=== PATIENT | female | born 1945 | race Caucasian/White ===

== ENCOUNTER 2017-10-17 12:01 | Inpatient (IN) | payer MEDICARE, OTHER ==
[~2017-10-17] VITALS: Ht 160 cm; Wt 55.3 kg
[~2017-10-17 12:01] MED LIST: ACYC800T PO; ALEN70TA47 PO; ASP81TEC PO; DESL1TBM PO; E400C PO; LOSA50TA6 PO; LSNP20T PO; LYSI500T13 PO; PIRO20CA2 PO; SALS750T17 PO
--- OUTSIDE RECORDS SUMMARY | 2017-10-17 12:43 | XMS REPORT ---
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
--- OUTSIDE RECORDS SUMMARY | 2017-10-17 12:43 | XMS REPORT ---
Author Author DEXTER SCANLON [facility] eClinicalWorks Address Unknown Phone Unavailable Care Team Providers Care Ecommerce Marketing Specialist Name Role Phone DEXTER SCANLON CP Unavailable Allergies No Known Allergies Problems Problem Type Condition Code Onset Dates Condition Status Problem Other seasonal allergic rhinitis J30.2 Active Problem Chronic kidney disease, stage 3 (moderate) N18.3 Active Problem Essential hypertension I10 Active Problem Lymphedema of breast I89.0 Active Problem History of carcinoma in situ of breast Z86.000 Active Problem Diverticulosis of large intestine without hemorrhage K57.30 Active Medications No Known Medications Results No Known Results Summary Purpose eClinicalWorks Submission
--- OUTSIDE RECORDS SUMMARY | 2017-10-17 12:43 | XMS REPORT ---
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
--- OUTSIDE RECORDS SUMMARY | 2017-10-17 12:43 | XMS REPORT ---
Author Author DEXTER SCANLON [facility] Address [address] [place] [address] Care Team Providers Care Mold Injector Name Role Phone DEXTER SCANLON Unavailable PROBLEMS Type Condition ICD9-CM Code QZX30-XD Code Onset Dates Condition Status SNOMED Code Problem Lymphedema of breast I89.0 Active 952193521 Problem Arthritis, multiple joint involvement M12.9 Active 084502318 Problem Other seasonal allergic rhinitis J30.2 Active 909105178 Problem Diverticulosis of large intestine without hemorrhage K57.30 Active 018770378 Problem History of carcinoma in situ of breast Z86.000 Active 63910164614350736 Problem Chronic kidney disease, stage 3 (moderate) N18.3 Active 112483063 Problem Essential hypertension I10 Active 89763446 ALLERGIES Substance Reaction Event Type Date Status Lisinopril 20 Mg Tablet cough Non Drug Allergy Aug, Active Norvasc 10 Mg Tablet edema Non Drug Allergy Aug, Active SOCIAL HISTORY Never Assessed PLAN OF CARE Activity Details Follow Up 4 Months Reason:Nephrology lab VITAL SIGNS Height 64 in 2016-08-15 Weight 123.3 lbs 2016-08-15 Temperature 97.6 degrees Fahrenheit 2016-08-15 Heart Rate 80 bpm 2016-08-15 Respiratory Rate 18 2016-08-15 BMI 21.16 kg/m2 2016-08-15 Blood pressure systolic 131 mmHg 2016-08-15 Blood pressure diastolic 84 mmHg 2016-08-15 MEDICATIONS Medication Instructions Dosage Frequency Start Date End Date Duration Status Aspir-81 81 MG Orally Once a day 1 tablet 24h Active Claritin Active Vitamin E 400 UNIT Orally Once a day 1 capsule 24h Active Metoprolol Tartrate 50 MG 1 TABLET TWICE A DAY ORALLY Active Lasix 20 mg Orally 3 times per week 1 tablet Dec, Active Lysine 500 MG Active Glucosamine Chondroitin Plus 1 capsule Active Vitamin D 2000 UNIT Orally Once a day 1 tablet 24h Active Triamcinolone Acetonide 0.5 % Externally Twice a day 1 application to affected area 12h Active Lecithin 400 MG Active B-50 Complex - Active Centrum Silver - Active Nexium 20 MG 1 Capsule by Oral route 1 time per day November, Active Gelatin 650 MG Active Acyclovir 400MG TAKE 1 TABLET THREE TIMES A DAY Active Tamoxifen Citrate 20 MG Orally Once a day 1 tablet 24h Active Salsalate 750 MG Orally Twice a day 2 tablets 12h Active Fluticasone Propionate 50MCG USE 1 SPRAY IN EACH NOSTRIL TWICE A DAY Active Voltaren NA 1 APPLICATION BY TRANSDERMAL ROUTE 4 TIMES PER DAY DISP 100 G TUBE. Active Biotin Active RESULTS No Results PROCEDURES Procedure Date Ordered Result Body Site CRYOTHERAPY OF SKIN 2016-08-15 N/A FLUZONE HIGH DOSE 65 AND UP 2015Aug 15, 2016 CRYOTHERAPY OF SKIN Aug 15, 2016 SINGLE IMMUNIZATION ADMIN Aug 15, 2016 IMMUNIZATIONS Vaccine Route Administration Date Status FLUZONE HIGH DOSE 65 AND UP 2015 IM Intramuscular Aug 15, 2016 Administered MEDICAL (GENERAL) HISTORY Type Description Date Medical History Chronic Kidney Disease Medical History hypertension Medical History hx Carcinoma in situ of breast Medical History macular degeneration Medical History Arthritis Medical History osteoporosis Medical History hx Pityriasis rosea Medical History Diverticulosis Medical History Chronic/recurrent sinusitis Medical History Sacroiliitis Surgical History lumpectomy ([facility]) 09/19/2011 Surgical History hysterectomy YULY 1982 Surgical History section X2 Surgical History orthopedic surgery-scapula 1968 Surgical History Cataract surgery 11/2009 Surgical History tonsillectomy and adenoidectomy Hospitalization History Hospitalization for surgery only
--- OUTSIDE RECORDS SUMMARY | 2017-10-17 12:43 | XMS REPORT ---
Author Author DEXTER SCANLON [facility] [place] eClinicalWorks Address Unknown Phone Unavailable Care Team Providers Care Certified Physician'S Assistant Name Role Phone DEXTER SCANLON Unavailable Allergies No Known Allergies Problems Problem [...] Instructions Start Date End Date Status Dosage Lasix [facility] [address]-21 20 MG Orally 3 times per week December 10, 2014 1 tablet Results No Known Results Summary Purpose eClinicalWorks Submission
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
[2017-10-17] MEDS ORDERED: CATHETER FLUSH 10 ML SYR IV PRN (13:30)
[2017-10-17] MEDS: HYDROmorphone 2 MG/ML VIAL (DILAUDID) IVP PRN ×2 (13:41→19:48)
[2017-10-17] MEDS: NS IV 1000 ML 1,000 ML IV SCH ×2 (13:41→23:15)
--- NOTE | 2017-10-17 13:42 | History & Physical-Hospitalist ---
History of Present Illness HPI/Chief Complaint Patient is a 72-year-old white female sent from Dr. Burns's office as a direct admission. She had gone there as a result of swelling and pain in the right index finger. There was some abnormality yesterday but much more so today and there was Considerable pain as well. There was erythema which extended up the volar surface of the forearm and medial surface of the upper arm with erythema also spilling over to the upper outer quadrant of the right breast. She was not clear that there had been any injury or puncture of the finger. Curiously her was just discharged from this floor yesterday after a cellulitis of the left hand beginning with a power drill accident. She also reports pain at the buttocks which is been present for several days. She says that she has previously had an abscess in this area. She also has a considerable arthritic involvement of the IP joints of both hands. Source: patient Exam Limitations: no limitations Date Seen 10/17/17 Time Seen by Provider: 13:33 Attending Physician Jhonny Rees MD PCP Faizan Burns MD Referring Physician Date of Admission Oct 17, 2017 at 12:40 Home Medications & Allergies Home Medications Reviewed patient Home Medication Reconciliation performed by pharmacy medication reconciliations outside plant technician and/or nursing. Patients Allergies have been reviewed. Allergies Allergies Coded Allergies Codeine (Unverified Adverse Reaction, Mild, 04/03/11) Past Ecsgnvb-Ywtlsm-Scjqzv Hx Past Med/Social Hx: Reviewed Nursing Past Med/Soc Hx Review of Systems Constitutional: see HPI EENTM: no symptoms reported Respiratory: no symptoms reported Cardiovascular: no symptoms reported Gastrointestinal: no symptoms reported Genitourinary: no symptoms reported Musculoskeletal: joint pain Skin: see HPI Psychiatric/Neurological: No Symptoms Reported Physical Exam Physical Exam Vital Signs Capillary Refill : General Appearance: Moderate Distress Eyes: Bilateral Eye Normal Inspection HEENT: Normal ENT Inspection Neck: Normal Inspection Respiratory: Chest Non Tender, Lungs Clear, Normal Breath Sounds, No Accessory Muscle Use, No Respiratory Distress Gastrointestinal: Normal Bowel Sounds, No Organomegaly, No Pulsatile Mass, Non Tender, Soft Back: Normal Inspection Neurologic/Psychiatric: Alert, Oriented x3, No Motor/Sensory Deficits, Normal Mood/Affect Comments There was considerable rather globoid deformity of the IP joints of both hands. The right second finger is grossly abnormal and oozing serous drainage. There is a large blue-black blister over the entire surface of the proximal palmar phalanx. There is a dime-sized vesicle over the dorsal surface of the first phalanx. Erythema streaks up the volar surface of the forearm to the elbow and then the medial surface of the upper arm to the axilla with adjacent erythema over the upper outer quadrant of the right breast. In addition there is an area of discoloration in the gluteal crease. There is erythema giving the character of yeast. There is a firm area which is quite tender and on the left of the gluteal crease. Results Results/Procedures Labs Patient resulted labs reviewed. Assessment/Plan Admission Diagnosis Cellulitis right index finger with lymphangitic spread up the right arm to the axilla. 2.second process in the gluteal crease. Admission Status: Inpatient Order (span 2 midnights) Reason for Inpatient Admission: Treatment of extensive cellulitis Assessment and Plan IV fluids. Surgery consult. Broad-spectrum antibiotics. Pain control. JHONNY REES MD Oct 17, 2017 13:42
[2017-10-17] MEDS ORDERED: PIPERACILLIN SODIUM/TAZOBACTAM 4.5 GM in NS (IVPB) 100 ML IV NR (13:45)
[2017-10-17] MEDS ORDERED: LORA-877 PO (13:57)
[2017-10-17] MEDS ORDERED: ESOM20CA58 PO (13:57)
[2017-10-17] MEDS ORDERED: LECI400C PO (13:57)
[2017-10-17] MEDS ORDERED: ACYC400T PO (13:57)
[2017-10-17] MEDS ORDERED: CHOL2000 PO (13:57)
[2017-10-17] MEDS ORDERED: FURO20TA4 PO (13:57)
[2017-10-17] MEDS ORDERED: VITA400C60 PO (13:57)
[2017-10-17] MEDS ORDERED: METO50TA15 PO (13:57)
[2017-10-17] MEDS ORDERED: GELA600C5 PO (13:57)
[2017-10-17] MEDS ORDERED: MULT-1029 PO (13:57)
[2017-10-17] MEDS ORDERED: DOCU100C37 PO (13:57)
[2017-10-17] MEDS ORDERED: ASPI-983 PO (13:57)
[2017-10-17] MEDS ORDERED: SALS750T17 PO (13:57)
[2017-10-17] MEDS ORDERED: VITA1CAP PO (13:57)
[2017-10-17] MEDS ORDERED: TAMO10TA PO (13:57)
[2017-10-17] MEDS ORDERED: GLUC1TAB20 PO (13:57)
[2017-10-17] MEDS ORDERED: LYSI500T37 PO (13:57)
[2017-10-17] MEDS ORDERED: FLUT16SP22 NSEACH (13:57)
[2017-10-17] MEDS ORDERED: NFBIOT1000 PO (13:57)
[2017-10-17] MEDS ORDERED: LOSA50TA36 PO (13:57)
[2017-10-17] MEDS ORDERED: VANCOMYCIN INJECTION 1,250 MG in NS (IVPB) 250 ML IV NR (14:00)
[2017-10-17 14:27] LABS: BASOPHILS % (AUTO) 0 % (0-10); EOSINOPHILS # (AUTO) 0.1 10^3/uL (0.0-0.3); EOSINOPHILS % (AUTO) 0 % (0-10); HEMATOCRIT 35 % (35-52); HEMOGLOBIN 12.3 G/DL (11.5-16.0); LYMPHOCYTES # (AUTO) 0.4 X 10^3 (1.0-4.0); LYMPHOCYTES % (AUTO) 2 % (12-44); MEAN CORPUSCULAR HEMOGLOBIN 34 PG (25-34); MEAN CORPUSCULAR HGB CONC 35 G/DL (32-36); MEAN CORPUSCULAR VOLUME 96 FL (80-99); MEAN PLATELET VOLUME 11.1 FL (7.4-10.4); MONOCYTES # (AUTO) 0.7 X 10^3 (0.0-1.0); MONOCYTES % (AUTO) 4 % (0-12); NEUTROPHILS # (AUTO) 16.8 X 10^3 (1.8-7.8); NEUTROPHILS % (AUTO) 93 % (42-75); PLATELET COUNT 161 10^3/uL (130-400); RED BLOOD COUNT 3.64 10^6/uL (4.35-5.85); RED CELL DISTRIBUTION WIDTH 13.3 % (10.0-14.5)
[2017-10-17 14:43] LABS: BAND NEUTROPHILS 31 %; BASOPHILS % (MANUAL) 0 %; EOSINOPHILS % (MANUAL) 0 %; LYMPHOCYTES % (MANUAL) 4 %; MONOCYTES % (MANUAL) 2 %; NEUTROPHILS % (MANUAL) 63 %; RBC MORPH NORMAL
[2017-10-17 14:46] LABS: ALBUMIN 3.1 GM/DL (3.2-4.5); BILIRUBIN,TOTAL 0.3 MG/DL (0.1-1.0); CALCIUM 8.1 MG/DL (8.5-10.1); CREATININE SERUM 1.16 MG/DL (0.60-1.30); POTASSIUM 3.3 MMOL/L (3.6-5.0); TOTAL PROTEIN 5.3 GM/DL (6.4-8.2)
[2017-10-17 16:34] VITALS: BP 116/55
[2017-10-17 18:28] LABS: BILIRUBIN,URINE NEGATIVE (NEGATIVE); CLARITY,URINE CLEAR; COLOR,URINE YELLOW; GLUCOSE, URINE (UA) NEGATIVE (NEGATIVE); KETONES,URINE 1+ (NEGATIVE); LEUKOCYTE ESTERASE ,URINE NEGATIVE (NEGATIVE); NITRITE,URINE NEGATIVE (NEGATIVE); PH,URINE 6 (5-9); PROTEIN,URINE 1+ (NEGATIVE); UROBILINOGEN,URINE NORMAL (NORMAL)
[2017-10-17 18:39] LABS: BACTERIA,URINE TRACE /HPF; RBC,URINE RARE /HPF; WBC,URINE RARE /HPF
[2017-10-17 19:42] VITALS: BP 120/57
[2017-10-17] MEDS: PIPERACILLIN SODIUM/TAZOBACTAM 4.5 GM in NS (IVPB) 100 ML IV SCH (20:33)
[2017-10-17 23:26] VITALS: BP 122/58
[2017-10-18] MEDS: HYDROmorphone 2 MG/ML VIAL (DILAUDID) IVP PRN ×5 (03:59→20:40)
[2017-10-18 04:00] VITALS: BP 114/72
[2017-10-18] MEDS: PIPERACILLIN SODIUM/TAZOBACTAM 4.5 GM in NS (IVPB) 100 ML IV SCH ×3 (04:17→20:31)
[2017-10-18 08:00] VITALS: BP 129/68
[2017-10-18 09:34] LABS: BASOPHILS % (AUTO) 0 % (0-10); EOSINOPHILS # (AUTO) 0.1 10^3/uL (0.0-0.3); EOSINOPHILS % (AUTO) 0 % (0-10); HEMATOCRIT 37 % (35-52); HEMOGLOBIN 12.9 G/DL (11.5-16.0); LYMPHOCYTES # (AUTO) 0.4 X 10^3 (1.0-4.0); LYMPHOCYTES % (AUTO) 2 % (12-44); MEAN CORPUSCULAR HEMOGLOBIN 34 PG (25-34); MEAN CORPUSCULAR HGB CONC 35 G/DL (32-36); MEAN CORPUSCULAR VOLUME 97 FL (80-99); MEAN PLATELET VOLUME 10.9 FL (7.4-10.4); MONOCYTES # (AUTO) 0.6 X 10^3 (0.0-1.0); MONOCYTES % (AUTO) 3 % (0-12); NEUTROPHILS # (AUTO) 19.7 X 10^3 (1.8-7.8); NEUTROPHILS % (AUTO) 95 % (42-75); PLATELET COUNT 166 10^3/uL (130-400); RED BLOOD COUNT 3.82 10^6/uL (4.35-5.85); RED CELL DISTRIBUTION WIDTH 13.9 % (10.0-14.5); WHITE BLOOD COUNT 20.8 10^3/uL (4.3-11.0)
[2017-10-18 09:57] LABS: ERYTHROCYTE SEDIMENTATION RATE 29 MM/HR (0-30)
[2017-10-18 10:00] LABS: ALBUMIN 2.6 GM/DL (3.2-4.5); BILIRUBIN,TOTAL 0.4 MG/DL (0.1-1.0); CREATININE SERUM 1.27 MG/DL (0.60-1.30); POTASSIUM 3.3 MMOL/L (3.6-5.0); TOTAL PROTEIN 4.9 GM/DL (6.4-8.2)
[2017-10-18] MEDS: NS IV 1000 ML 1,000 ML IV SCH (10:00)
[2017-10-18] MEDS ORDERED: ACETAMINOPHEN 500 MG TAB (TYLENOL) PO PRN (10:15)
[2017-10-18] MEDS ORDERED: ONDANSETRON 4 MG/2 ML (SDV) Z0FRAN IVP PRN ×2 (10:15→14:30)
[2017-10-18] MEDS ORDERED: LACTULOSE SYRUP 10GM/15ML (ENULOSE) 30ML UDC PO PRN (10:15)
--- NOTE | 2017-10-18 10:24 | Progress Note-Hospitalist ---
Subjective HPI/CC On Admission Date Seen by Provider: Oct 18, 2017 Time Seen by Provider: 09:50 Patient is a 72-year-old white female sent from Dr. Burns's office as a direct admission. She had gone there as a result of swelling and pain in the right index finger. There was some abnormality yesterday but much more so today and there was Considerable pain as well. There was erythema which extended up the volar surface of the forearm and medial surface of the upper arm with erythema also spilling over to the upper outer quadrant of the right breast. She was not clear that there had been any injury or puncture of the finger. Curiously her was just discharged from this floor yesterday after a cellulitis of the left hand beginning with a power drill accident. She also reports pain at the buttocks which is been present for several days. She says that she has previously had an abscess in this area. She also has a considerable arthritic involvement of the IP joints of both hands. Subjective/Events-last exam Gabriela the nurse called me at 0800 today to report a change in the right index finger status from blue to black. The swelling of the hand had also increased and the pain had increased. She was receiving Dilaudid with good results with pain relief. I conferred with hand surgeon Dr. Nj in depth and he will perform surgery on the finger and the hand today between 12 o'clock and 1 o' clock p.m. Her daughter who is a hand surgeon and serving in the in [place] did have a conversation with the hand surgeon and everyone updated in agreement with the plan for surgery. She is aware of the fact that they may have to amputate the necrotic tissue on the tip of her index finger. To note her was just discharged on Monday for left hand cellulitis from a drill bit injury of which orthopedic surgery had trained the infection and found to have specific bacteria did a fight on culture he was sent home on Augmentin. We have been treating the patient's infection with vancomycin and Zosyn broad- spectrum until identification of the bacteria is known. Her daughter was concerned about the possibility of thrombosis as the source of the ischemia but considering her rheumatoid arthritis and significant disease in her hands and autoimmune disease baseline likely ischemic changes from those sources are more likely that we did consult cardiology and I have ordered an echocardiogram and EKG and placed her on Holter monitor telemetry to evaluate for possibility of atrial fibrillation. Her primary care provider is Dr. Burns and her driver material handler is Dr. Newman in [place] and Dr. Maguire rheumatology at [facility] and an oncologist at [facility] that she just changed to after changing oncologists 5 times. Review of Systems General: Fatigue, Malaise Musculoskeletal: hand pain Focused Exam Lactate Level 10/17/17 14:09: Lactic Acid Level 1.51 Objective Exam Vital Signs Vital Signs Date Time Temp Pulse Resp B/P (MAP) Pulse Ox O2 Delivery O2 Flow Rate FiO2 10/17/17 12:10 99 Room Air 10/17/17 16:34 100.2 104 16 116/55 (75) Capillary Refill : General Appearance: No Apparent Distress, WD/WN, Chronically ill HEENT: PERRL/EOMI Neck: Normal Inspection Respiratory: Lungs Clear, Normal Breath Sounds Cardiovascular: Regular Rate, Rhythm, No Edema Extremity: Other (right index finger with necrosis on tip, hand with erythema and edema, good pulse radial and ulnar) Neurologic/Psychiatric: Alert, Oriented x3, No Motor/Sensory Deficits, Normal Mood/Affect, vice admiral II-XII Norm as Tested Results/Procedures Lab Laboratory Tests 10/17/17 14:09 10/18/17 09:20 Patient resulted labs reviewed. Assessment/Plan Assessment and Plan Assess & Plan/Chief Complaint Acute right hand cellulitis with lymphatic spread now with ischemic changes in necrosis of the tip of the index finger having surgery today by hand surgeon Long-standing rheumatoid arthritis managed by Dr. Maguire rheumatology in [place] Chronic renal insufficiency managed by Dr. Newman in [place] h/o left breast cancer HTN Plan: IV abx broad spectrum Pain control Surgery today Cardiology evaluation for PAF Monitor closely maddie creat Diagnosis/Problems Diagnosis/Problems (1) cellulitis Status: Acute (2) Gangrene of finger of right hand Status: Acute (3) Hypertension Status: Chronic Qualifiers: Hypertension type: essential hypertension Qualified Codes: I10 - Essential (primary) hypertension (4) Renal insufficiency Status: Chronic (5) HX: breast cancer Status: Chronic Clinical Quality Measures DVT/VTE Risk/Contraindication: Risk Factor Score Per Nursin RFS Level Per Nursing on Admit: 3=High JOHN ANDERSON DO Oct 18, 2017 10:24
[2017-10-18] MEDS: D5 NS 1000 ML IV SOLUTION 1,000 ML IV SCH ×2 (10:33→20:40)
--- NOTE | 2017-10-18 10:44 | HISTORY AND PHYSICAL ---
DATE OF SERVICE: CHIEF COMPLAINT: Right hand pain and swelling and infection. HISTORY OF PRESENT ILLNESS: This is a 72-year-old female with a history of pain that started on Monday. Swelling started on Monday Her was just in for a hand infection that required operative intervention. She complains of some minimal numbness and tingling. She has a significant amount of pain and decrease in range of motion. Her past medical history, past surgical history and family history are all noncontributory. REVIEW OF SYSTEMS: A 12-point review of systems is negative except for HPI. PHYSICAL EXAMINATION: VITAL SIGNS: She is afebrile. HEENT: She is normocephalic and atraumatic. Extraocular movements are intact. RESPIRATORY: No labored breathing. ABDOMEN: Nondistended. EXTREMITIES: Her hand has volar and dorsal swelling with some abscess formation over the dorsal aspect of the index finger, some black necrotic tissue at the tip of the finger. She has pain over the A1 pulleys of all 5 fingers. She has pain over the carpal tunnel and swelling tracking up there. ASSESSMENT: Flexor tenosynovitis and abscess of the hand. PLAN: Irrigation and debridement of the hand with culturing. The risks and benefits of the surgery were discussed with the patient and she agrees to proceed. We discussed this with her daughter who is a hand surgeon, who is currently in [place] and she agrees with the plan. We will get her taken care of at first available operative time, which is 1:00 p.m. Job ID: [id number] DocumentID: [id number] Dictated Date: 10/18/2017 09:55:35 Assistant Prosecuting Attorney Date: 10/18/2017 10:43:19 Dictated By: DO DAO HAN
[2017-10-18] MEDS ORDERED: LACTATED RINGERS 1,000 ML IV PRN (11:04)
[2017-10-18] MEDS ORDERED: FAMOTIDINE 20MG/2ML IV (PEPCID) IV ONE (11:15)
[2017-10-18] MEDS ORDERED: SEVOFLURANE (ULTANE) 15 ML INHAL SOLN ONE ×5 (11:26→14:19)
[2017-10-18] MEDS ORDERED: proPOfol 200 MG/20 ML (DIPRIVAN) VIAL IV ONE (11:26)
[2017-10-18] MEDS ORDERED: LIDOCAINE PF 2% 5 ML (XYLOCAINE) VIAL ONE (11:26)
[2017-10-18] MEDS ORDERED: ONDANSETRON 4 MG/2 ML (SDV) Z0FRAN ONE (11:26)
[2017-10-18] MEDS ORDERED: MIDAZOLAM 2 MG/2 ML (VERSED) VIAL ONE (11:27)
[2017-10-18] MEDS ORDERED: fentaNYL INJECTION 100 MCG/2 ML AMP ONE (11:27)
--- NOTE | 2017-10-18 11:40 | Consultation-Cardiology ---
HPI-Cardiology Cardiology Consultation: Date of Consultation 10/18/17 Time Seen by Provider: 10:45 Date of Admission Attending Physician Jhonny Martin MD Admitting Physician Faizan Burns MD Consulting Physician RAYMOND CLOUD MD, MA, FACP, FACC, FSCAI, CCDS HPI: Chief Complaint: CC: L hand discoloration and swelling (more in the L index finger) 72 yo woman with h/o Rheumatoid arthritis who has had increasing L hand discomfort, swelling and discoloration (more of the index finger) for last several days. Denies palp or syncope or cp. Does not slowly progressive exertional shortness of breath for several days. Denies fever or chills. Denies leg swelling Review of Systems-Cardiology Review of Systems Constitutional: No weight loss, No weight gain Eyes: No vision change Ears/Nose/Throat: No ear discharge, No nasal drainage, No recent hearing loss Respiratory: As described under HPI Cardiovascular: As described under HPI Gastrointestinal: No constipation, No diarrhea, No nausea, No vomiting Genitourinary: No dysuria, No hematuria, No urine frequency changes Musculoskeletal: As describe under HPI Skin: As described under HPI Psychiatric/Neurological: No seizure, No focal weakness Hematologic: No bleeding abnormalities TPY-Sribzf-Xbuilp Hx Patient Social History Alcohol Use: Denies Use Recreational Drug Use: No Smoking Status: Never a Smoker Recent Foreign Travel: No Recent Infectious Disease Expo: No Physical Abuse Screen: No Sexual Abuse: No Immunizations Up To Date Date of Pneumonia Vaccine: Oct 17, 2014 Past Medical History PMH As described under Assessment. Family Medical History Family Medical History: No fam h/o early CAD or SCD Allergies and Home Medications Allergies Coded Allergies: Codeine (Unverified Adverse Reaction, Mild, 04/03/11) Home Medications Acyclovir 400 Mg Tablet, 400 MG PO TID PRN for FEVER BLISTERS, (Reported) Aspirin 81 Mg Tablet.dr, 81 MG PO DAILY, (Reported) Biotin 1,000 Mcg Tablet, 1,000 MCG PO DAILY, (Reported) Cholecalciferol (Vitamin D3) 2,000 Unit Capsule, 2,000 UNIT PO DAILY, (Reported) Docusate Sodium 100 Mg Capsule, 100 MG PO DAILY PRN for CONSTIPATION-1ST LINE, ( Reported) Esomeprazole Magnesium 20 Mg Capsule.dr, 20 MG PO DAILY, (Reported) Fluticasone Propionate 16 Gm [place].susp, 1 SPRAY NSEACH BID, (Reported) Furosemide 20 Mg Tablet, 20 MG PO DAILY, (Reported) Gelatin 600 Mg Capsule, 600 MG PO BID, (Reported) Gluc Iqbal/Chondro Iqbal A/Vit C/Mn 1 Each Tablet, 1 TAB PO BID, (Reported) Lecithin, Soy 400 Mg Capsule, 400 MG PO DAILY, (Reported) Loratadine/Pseudoephedrine 1 Each Tab.er.24h, 1 TAB PO DAILY, (Reported) Losartan Potassium 50 Mg Tablet, 50 MG PO DAILY, (Reported) Lysine HCl 500 Mg Tablet, 1,000 MG PO BID, (Reported) TAKES 2 (500 MG) TABLETS Metoprolol Tartrate 50 Mg Tablet, 25 MG PO BID, (Reported) TAKES 1/2 OF A (50 MG) TABLET / LAST FILLED 03/23/17 #180 Multivit-Min/FA/Lycopene/Lut 1 Each Tablet, 1 TAB PO DAILY, (Reported) Salsalate 750 Mg Tablet, 1,500 MG PO BID, (Reported) Tamoxifen Citrate 10 Mg Tablet, 20 MG PO DAILY, (Reported) TAKES 2 (10 MG) TABLETS Vitamin B Complex 1 Each Capsule, 1 CAP PO DAILY, (Reported) Vitamin E Acetate 400 Unit Capsule, 400 UNIT PO DAILY, (Reported) Patient Home Medication List Home Medication List Reviewed: Yes Physical Exam-Cardiology Physical Exam Vital Signs/I&O 10/18/17 10/18/17 10/18/17 10/18/17 04:00 08:00 09:00 11:18 Temp 98.0 99.3 Pulse 99 106 97 Resp 16 20 B/P (MAP) 114/72 (86) 129/68 (88) Pulse Ox 94 96 O2 Delivery Room Air Room Air Room Air 10/18/17 12:00 Temp 99.1 Pulse 96 Resp 18 B/P (MAP) 178/79 (112) Pulse Ox 95 O2 Delivery Room Air 10/18/17 00:00 Intake Total 1650 ml Output Total 900 ml Balance 750 ml Capillary Refill : Constitutional: AAO x 3, well-developed, well-nourished HEENT: EOMI, hearing is well preserved, oral hygience is good; No xanthelasmas are seen Neck: carotid pulses are 2 + bilaterally, with good upstrokes Respiratory: No accessory muscle use; other (good bilateral air entry) Cardiovascular: regular rate-rhythm, S1 and S2, systolic murmur (2/6 MSM at card base) Gastrointestinal: No tender; soft; No guarding, No rebound; audible bowel sounds Extremities: other (marked swelling and dusky dicoloration of the L hand; blackish discoloration of the tip or the L index finger; arthritic chnages in IP and MCP joints on both hands) Neurologic/Psychiatric: oriented x 3, other (Moves all limbs eaually) Skin: other (see above under extemities exam) Data Review Labs Laboratory Tests 10/17/17 14:09: White Blood Count 18.0H, Red Blood Count 3.64L, Hemoglobin 12.3, Hematocrit 35, Mean Corpuscular Volume 96, Mean Corpuscular Hemoglobin 34, Mean Corpuscular Hemoglobin Concent 35, Red Cell Distribution Width 13.3, Platelet Count 161, Mean Platelet Volume 11.1H, Neutrophils (%) (Auto) 93H, Lymphocytes (%) (Auto) 2L, Monocytes (%) (Auto) 4, Eosinophils (%) (Auto) 0, Basophils (%) (Auto) 0, Neutrophils # (Auto) 16.8H, Lymphocytes # (Auto) 0.4L, Monocytes # (Auto) 0.7, Eosinophils # (Auto) 0.1, Basophils # (Auto) 0.0, Neutrophils % (Manual) 63, Lymphocytes % (Manual) 4, Monocytes % (Manual) 2, Eosinophils % (Manual) 0, Basophils % (Manual) 0, Band Neutrophils 31, Blood Morphology Comment NORMAL, Sodium Level 133L, Potassium Level 3.3L, Chloride Level 103, Carbon Dioxide Level 23, Anion Gap 7, Blood Urea Nitrogen 21H, Creatinine 1.16, Estimat Glomerular Filtration Rate 46, BUN/Creatinine Ratio 18, Glucose Level 73, Lactic Acid Level 1.51, Calcium Level 8.1L, Total Bilirubin 0.3, Aspartate Amino Transf (AST/SGOT) 29, Alanine Aminotransferase (ALT/SGPT) 13, Alkaline Phosphatase 39L, Total Protein 5.3L, Albumin 3.1L 10/17/17 18:20: Urine Color YELLOW, Urine Clarity CLEAR, Urine pH 6, Urine Specific [place] 1.010L, Urine Protein 1+H, Urine Glucose (UA) NEGATIVE, Urine Ketones 1+H, Urine Nitrite NEGATIVE, Urine Bilirubin NEGATIVE, Urine Urobilinogen NORMAL, Urine Leukocyte Esterase NEGATIVE, Urine RBC (Auto) 1+H, Urine RBC RARE, Urine WBC RARE, Urine Crystals NONE, Urine Bacteria TRACE, Urine Casts NONE, Urine Mucus NEGATIVE, Urine Culture Indicated NO 10/18/17 09:20: White Blood Count 20.8H, Red Blood Count 3.82L, Hemoglobin 12.9, Hematocrit 37, Mean Corpuscular Volume 97, Mean Corpuscular Hemoglobin 34, Mean Corpuscular Hemoglobin Concent 35, Red Cell Distribution Width 13.9, Platelet Count 166, Mean Platelet Volume 10.9H, Neutrophils (%) (Auto) 95H, Lymphocytes (%) (Auto) 2L, Monocytes (%) (Auto) 3, Eosinophils (%) (Auto) 0, Basophils (%) (Auto) 0, Neutrophils # (Auto) 19.7H, Lymphocytes # (Auto) 0.4L, Monocytes # (Auto) 0.6, Eosinophils # (Auto) 0.1, Basophils # (Auto) 0.0, Sodium Level 139, Potassium Level 3.3L, Chloride Level 109H, Carbon Dioxide Level 17L, Anion Gap 13, Blood Urea Nitrogen 21H, Creatinine 1.27, Estimat Glomerular Filtration Rate 41, BUN/ Creatinine Ratio 17, Glucose Level 57*L, Calcium Level 8.0L, Total Bilirubin 0.4 , Aspartate Amino Transf (AST/SGOT) 26, Alanine Aminotransferase (ALT/SGPT) 13, Alkaline Phosphatase 50, Total Protein 4.9L, Albumin 2.6L, Erythrocyte Sedimentation Rate 29 ECG Impression ECG Comment ECG on 10/18/17: NSR, poor R wave progression, no acute ischemic changes A/P-Cardiology Assessment/Admission Diagnosis Cellulitis of L hand; early gangrenous changes of the L index finger Rheumatoid arthritis Hypertension Exertional shortness of breath Echo on 10/18/17: LVEF 60-65%, mod mitral annular calcification, mod aortic valve sclerosis, no evidence of intracardiac thrombus on this study, PASP approx 40 mmHg Discussion and Recomendations * Cardiac risk for noncardiac surgery is estimated to intermediate * The symptoms of exertional shortness of breath have not fully been worked up, but surgery for rapidly deteriorating hand appears urgent/emergent. I spoke withe her in detail and explained her card risk to her. She understands all of this and wishes to proceed * A cardiac thrombus leading to L index finger gangrenous changes cannot be excluded. We recommend continuing telemetry. Consider implantable loop recorder after d/c, if PAF not documented during hospitalization Continue aspirin. If A Fib/Flutter is demonstrated, then full oral anticoag will be indicated Clinical Quality Measures DVT/VTE Risk/Contraindication: Risk Factor Score Per Nursin RFS Level Per Nursing on Admit: 3=High RAYMOND CLOUD MD FACP FAC CCDS Oct 18, 2017 11:40
--- NOTE | 2017-10-18 11:47 | Consultation ---
History of Present Illness History of Present Illness Patient Consulted On(melina/time) 10/17/17 14:20 Date Seen by Provider: Oct 17, 2017 Time Seen by Provider: 16:30 Reason for Visit: pain and swelling of the right index finger History of Present Illness Acute onset of pain swelling and discoloration of the right index finger over a 2 day period. Allergies and Home Medications Allergies Coded Allergies: Codeine (Unverified Adverse Reaction, Mild, 04/03/11) Home Medications Acyclovir 400 Mg Tablet, 400 MG PO TID PRN for FEVER BLISTERS, (Reported) Aspirin 81 Mg Tablet.dr, 81 MG PO DAILY, (Reported) Biotin 1,000 Mcg Tablet, 1,000 MCG PO DAILY, (Reported) Cholecalciferol (Vitamin D3) 2,000 Unit Capsule, 2,000 UNIT PO DAILY, (Reported) Docusate Sodium 100 Mg Capsule, 100 MG PO DAILY PRN for CONSTIPATION-1ST LINE, ( Reported) Esomeprazole Magnesium 20 Mg Capsule.dr, 20 MG PO DAILY, (Reported) Fluticasone Propionate 16 Gm [place].susp, 1 SPRAY NSEACH BID, (Reported) Furosemide 20 Mg Tablet, 20 MG PO DAILY, (Reported) Gelatin 600 Mg Capsule, 600 MG PO BID, (Reported) Gluc Iqbal/Chondro Iqbal A/Vit C/Mn 1 Each Tablet, 1 TAB PO BID, (Reported) Lecithin, Soy 400 Mg Capsule, 400 MG PO DAILY, (Reported) Loratadine/Pseudoephedrine 1 Each Tab.er.24h, 1 TAB PO DAILY, (Reported) Losartan Potassium 50 Mg Tablet, 50 MG PO DAILY, (Reported) Lysine HCl 500 Mg Tablet, 1,000 MG PO BID, (Reported) TAKES 2 (500 MG) TABLETS Metoprolol Tartrate 50 Mg Tablet, 25 MG PO BID, (Reported) TAKES 1/2 OF A (50 MG) TABLET / LAST FILLED 03/23/17 #180 Multivit-Min/FA/Lycopene/Lut 1 Each Tablet, 1 TAB PO DAILY, (Reported) Salsalate 750 Mg Tablet, 1,500 MG PO BID, (Reported) Tamoxifen Citrate 10 Mg Tablet, 20 MG PO DAILY, (Reported) TAKES 2 (10 MG) TABLETS Vitamin B Complex 1 Each Capsule, 1 CAP PO DAILY, (Reported) Vitamin E Acetate 400 Unit Capsule, 400 UNIT PO DAILY, (Reported) Patient Home Medication List Home Medication List Reviewed: Yes Past Thqoxbh-Yyinnz-Pabszu Hx Past Med/Social Hx: Reviewed Nursing Past Med/Soc Hx Patient Social History Alcohol Use: Denies Use Recreational Drug Use: No Smoking Status: Never a Smoker Recent Foreign Travel: No Contact w/Someone Who Travel: No Recent Infectious Disease Expo: No Recent Hopitalizations: No Immunizations Up To Date Date of Pneumonia Vaccine: Oct 17, 2014 Seasonal Allergies Seasonal Allergies: No Past Medical History Surgeries: Yes (lymph node removal left breast, csection x2) Respiratory: No Currently Using CPAP: No Currently Using BIPAP: No Cardiac: Yes Neurological: No Genitourinary: Yes Renal Failure Gastrointestinal: No Musculoskeletal: Yes (OSTEOARTHRITIS) Arthritis Endocrine: No HEENT: No 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 Did You Recieve Any Treatments: No Psychosocial: No Integumentary: Yes Recent Skin Changes Blood Disorders: No Adverse Reaction/Blood Tranf: No Review of Systems-General Constitutional: malaise EENTM: no symptoms reported Respiratory: no symptoms reported Cardiovascular: no symptoms reported Gastrointestinal: no symptoms reported Musculoskeletal: see HPI Skin: see HPI Physical Exam-General Problems Physical Exam Vital Signs Vital Signs - First Documented 10/17/17 10/17/17 12:10 16:34 Temp 100.2 Pulse 104 Resp 16 B/P (MAP) 116/55 (75) Pulse Ox 99 O2 Delivery Room Air Capillary Refill : General Appearance: mild distress Comments Swelling and discoloration of the right index finger with blistering of the skin. Progression of erythema toward the palmar aspect of the hand. Assessment/Plan Assessment/Plan Admission Diagnosis/Plan Lady with swelling, erythema and blistering of the right ring finger. Concerning for a deep-seated abscess with possible ischemia. I have promptly contacted Dr. Alexander, hand surgeon on staff directly and he has agreed to see the patient immediately for further assessment and management Admission Status: Inpatient Order (span 2 midnights) Clinical Quality Measures DVT/VTE Risk/Contraindication: Risk Factor Score Per Nursin RFS Level Per Nursing on Admit: 3=High FADI LORD MD Oct 18, 2017 11:47
[2017-10-18 12:00] VITALS: BP 178/79
[2017-10-18] MEDS ORDERED: BUPIVACAINE 0.5% 30 ML (SENSORCAINE) VIAL ONE (12:00)
[2017-10-18] MEDS ORDERED: LIDOCAINE 1% INJ 20 ML 20 ML VIAL ONE (12:00)
[2017-10-18] MEDS ORDERED: GENTAMICIN 40 MG/ML 2 ML INJ SDV ONE (12:00)
[2017-10-18] MEDS ORDERED: NEO/POLY/BAC (NEOSPORIN) OINT 15 GM TUBE ONE (12:00)
[2017-10-18] MEDS: NYSTATIN CREAM (MYCOSTATIN) 30 GM TUBE TP SCH ×2 (13:00→20:32)
[2017-10-18] MEDS ORDERED: VANCOMYCIN INJECTION 750 MG in NS (IVPB) 250 ML IV SCH (14:00)
[2017-10-18] MEDS ORDERED: fentaNYL INJECTION 100 MCG/2 ML AMP IVP PRN (14:30)
--- NOTE | 2017-10-18 14:34 | Progress Note-Post Operative ---
Post-Operative Progess Note Surgeon (s)/Workers' Compensation Hearings Officer (s) Surgeon ARIAN GOTTI DO Workers' Compensation Hearings Officer: None Pre-Operative Diagnosis Right Index Finger Flexor tenosynovitis Post-Operative Diagnosis same Procedure & Operative Findings Date of Procedure 10/18/17 Procedure Performed/Findings Irrigation and Debridement of right index finger flexor tenosynovitis Anesthesia Type General Estimated Blood Loss Estimated blood loss (mL): minimal Specimens/Packing Specimens Removed wound cultures Packing: drain only ARIAN GOTTI DO Oct 18, 2017 14:34
--- NOTE | 2017-10-18 15:18 | Anesthesia-General Post-Op ---
General Patient Condition Mental Status/LOC: Same as Preop Cardiovascular: Satisfactory Nausea/Vomiting: Absent Respiratory: Satisfactory Pain: Controlled Complications: Absent Post Op Complications Complications None Follow Up Care/Instructions Patient Instructions None needed. Anesthesia/Patient Condition Patient Condition Patient is doing well, no complaints, stable vital signs, no apparent adverse anesthesia problems. No complications reported per nursing. DAVIDA COLINDRES CRNA Oct 18, 2017 15:18
--- NOTE | 2017-10-18 15:20 | OPERATIVE REPORT ---
DATE OF SERVICE: PREOPERATIVE DIAGNOSIS: Flexor tenosynovitis of the right index finger. POSTOPERATIVE DIAGNOSIS: Flexor tenosynovitis of the right index finger. PROCEDURE PERFORMED: Irrigation and debridement of the right index finger flexor tendon sheath. SURGEON: Arian Nj DO. ASSISTATNS: No assistants. ANESTHESIA: General anesthetic. BLOOD LOSS: Minimal. COMPLICATIONS: None. INDICATIONS: This is a 72-year-old female with a history of a few days onset of cellulitis that has progressed into a very extensive flexor tenosynovitis including involving the index finger. We have discussed operative intervention. She agrees to proceed. DESCRIPTION OF THE PROCEDURE: The patient was taken back to the operative room and placed on the operating room table. General anesthetic was given. She was prepped and draped in usual fashion. Sanderson was used to examine the extremity. The tourniquet was inflated. An incision was made over the A1 jimena. Sharp and blunt dissection carried down to the A1 jimena. Incision was made into the A1 jimena revealing a significant amount of pus protruding from the jimena. We made a separate incision over the distal interphalangeal joint in the crease, blunt dissection carried down to the jimena. We made an incision in the jimena as well, but there was an additional amount of pus noted. There, we put significant pressure into the carpal tunnel pushing distally. There was no excessive fluid coming from the carpal tunnel. We copiously irrigated the wound with over a liter of saline. We created a catheter with a 10-Maori NG tube where we fenestrated with an 18-gauge needle, placed it up through the jimena from proximal to distal for daily irrigations at bedside. The sloughing skin was removed. Again, the wound was copiously irrigated with with epinephrine. The tourniquet was deflated. There was minimal to no bleeding. A sterile dressing was applied. The patient tolerated the procedure well with no complications and was taken to recovery room in stable condition. Job ID: [id number] DocumentID: [id number] Dictated Date: 10/18/2017 14:54:29 Bead Trimmer Date: 10/18/2017 15:19:09 Dictated By: ARIAN NJ DO
[2017-10-18 16:41] VITALS: BP 179/79
[2017-10-18] MEDS ORDERED: NON-FORMULARY MEDICATION 1 EA EA (Docusate Sodium 100 MG) PO PRN (18:00)
[2017-10-18] MEDS ORDERED: amLODIPine 5 MG (NORVASC) TAB PO NR (18:00)
[2017-10-18] MEDS ORDERED: NON-FORMULARY MEDICATION 1 EA EA (Acyclovir 400 MG) PO PRN (18:00)
--- NOTE | 2017-10-18 18:44 | Wound Care Assessment ---
Wound Care Assessment Date Seen by Provider: Oct 18, 2017 Time Seen by Provider: 18:43 Chief Complaint Perineal rash. HPI The patient is a 72 year old female with excoriation of the perineum since recent long car trip in which she was sitting in the car for a long period. She admits to occasional incontinence of urine. Past Medical History: Admits Cancer, Treaments (L breast CA) Smoking Status: Never a Smoker Recreational Drug Use: No Alcohol Use: Denies Use Review of Systems Pulmonary: No Dyspnea Cardiovascular: No: Chest Pain Exam Vital Signs Date Time Temp Pulse Resp B/P (MAP) Pulse Ox O2 Delivery O2 Flow Rate FiO2 10/18/17 16:41 99.8 94 14 179/79 (112) 95 10/18/17 12:00 Room Air Capillary Refill : General Appearance: no apparent distress Respiratory: no respiratory distress Skin: rash (perineum excoriated with some satelite lesions consistent with fungal dermatitis.) Results Laboratory Tests 10/18/17 09:20: White Blood Count 20.8H, Red Blood Count 3.82L, Hemoglobin 12.9, Hematocrit 37, Mean Corpuscular Volume 97, Mean Corpuscular Hemoglobin 34, Mean Corpuscular Hemoglobin Concent 35, Red Cell Distribution Width 13.9, Platelet Count 166, Mean Platelet Volume 10.9H, Neutrophils (%) (Auto) 95H, Lymphocytes (%) (Auto) 2L, Monocytes (%) (Auto) 3, Eosinophils (%) (Auto) 0, Basophils (%) (Auto) 0, Neutrophils # (Auto) 19.7H, Lymphocytes # (Auto) 0.4L, Monocytes # (Auto) 0.6, Eosinophils # (Auto) 0.1, Basophils # (Auto) 0.0, Erythrocyte Sedimentation Rate 29, Sodium Level 139, Potassium Level 3.3L, Chloride Level 109H, Carbon Dioxide Level 17L, Anion Gap 13, Blood Urea Nitrogen 21H, Creatinine 1.27, Estimat Glomerular Filtration Rate 41, BUN/Creatinine Ratio 17, Glucose Level 57 *L, Calcium Level 8.0L, Total Bilirubin 0.4, Aspartate Amino Transf (AST/SGOT) 26, Alanine Aminotransferase (ALT/SGPT) 13, Alkaline Phosphatase 50, Total Protein 4.9L, Albumin 2.6L Microbiology 10/18/17 Gram Stain, Resulted Pending 10/18/17 Anaerobic Culture, Resulted Pending 10/18/17 Surgical Culture - Preliminary, Resulted 10/18/17 Fungal Culture, Resulted Pending Microbiology 10/18/17 Gram Stain, Resulted Pending 10/18/17 Anaerobic Culture, Resulted Pending 10/18/17 Surgical Culture - Preliminary, Resulted 10/18/17 Fungal Culture, Resulted Pending Assessment/Plan/Dx 1. Moisture associated skin damage, fungal dermatitis, of perineum. 2. Urinary incontinence. Plan: Anti fungal barrier cream already ordered. No change recommended. NELLY STALLWORTH MD Oct 18, 2017 18:44
[2017-10-18] MEDS ORDERED: DOCUSATE SODIUM 100 MG (COLACE) CAP PO PRN (18:45)
[2017-10-18] MEDS ORDERED: SALSALATE 500 MG PO SCH (19:00)
[2017-10-18] MEDS ORDERED: ACYCLOVIR 400 MG TABLET (ZOVIRAX) PO PRN (19:00)
[2017-10-18 20:19] VITALS: BP 179/76
[2017-10-18] MEDS: meTOprolol TARTRATE 25 MG (LOPRESSOR) TABLET PO SCH (20:31)
[2017-10-18] MEDS: MUPIROCIN 2% OINT 22 GM (BACTROBAN) TUBE TOP SCH (20:32)
[2017-10-18] MEDS: FLUTICASONE NASAL SPRAY (FLONASE) 16 GM BTL NS SCH (20:32)
[2017-10-18] MEDS: MICONAZOLE 2% POWDER (DESENEX AF) 90 GM TOP SCH (20:32)
[2017-10-18] MEDS ORDERED: PATIENT MAY USE OWN MEDS, ALL MC SCH (20:45)
[2017-10-18] MEDS ORDERED: METOPROLOL TARTRATE 25 MG PO SCH (21:00)
[2017-10-18] MEDS ORDERED: SALSALATE PO SCH (21:00)
[2017-10-18] MEDS ORDERED: LYSINE HCL 1000 MG PO SCH (21:00)
[2017-10-18] MEDS ORDERED: NON-FORMULARY MEDICATION 1 EA EA (Fluticasone Propionate 1 SPRAY) NSEACH SCH (21:00)
[2017-10-18] MEDS ORDERED: GELATIN PO SCH (21:00)
[2017-10-18] MEDS ORDERED: NON-FORMULARY MEDICATION 1 EA EA (Gluc Su/Chondro Su A/Vit C/Mn (Glucosamine Chondroitin T PO SCH (21:00)
[2017-10-18] MEDS: LIDOCAINE 1% INJ 20 ML 20 ML VIAL INJ SCH (21:43)
[2017-10-19] VITALS: BP 123/58
[2017-10-19 04:00] VITALS: BP 126/58
[2017-10-19] MEDS: PIPERACILLIN SODIUM/TAZOBACTAM 4.5 GM in NS (IVPB) 100 ML IV SCH ×3 (04:00→20:02)
[2017-10-19] MEDS: PANTOPRAZOLE 20 MG TABLET (PROTONIX) PO SCH (06:21)
[2017-10-19] MEDS: MULTIVIT W/MINERALS TAB (THERAGRAN M) PO SCH (06:21)
[2017-10-19] MEDS: D5 NS 1000 ML IV SOLUTION 1,000 ML IV SCH (06:24)
[2017-10-19 07:09] LABS: BASOPHILS % (AUTO) 0 % (0-10); EOSINOPHILS # (AUTO) 0.3 10^3/uL (0.0-0.3); EOSINOPHILS % (AUTO) 2 % (0-10); HEMATOCRIT 35 % (35-52); HEMOGLOBIN 12.1 G/DL (11.5-16.0); LYMPHOCYTES # (AUTO) 0.5 X 10^3 (1.0-4.0); LYMPHOCYTES % (AUTO) 3 % (12-44); MEAN CORPUSCULAR HEMOGLOBIN 34 PG (25-34); MEAN CORPUSCULAR HGB CONC 34 G/DL (32-36); MEAN CORPUSCULAR VOLUME 98 FL (80-99); MEAN PLATELET VOLUME 11.7 FL (7.4-10.4); MONOCYTES # (AUTO) 0.5 X 10^3 (0.0-1.0); MONOCYTES % (AUTO) 3 % (0-12); NEUTROPHILS # (AUTO) 15.5 X 10^3 (1.8-7.8); NEUTROPHILS % (AUTO) 92 % (42-75); PLATELET COUNT 169 10^3/uL (130-400); RED CELL DISTRIBUTION WIDTH 14.1 % (10.0-14.5); WHITE BLOOD COUNT 16.8 10^3/uL (4.3-11.0)
[2017-10-19 07:26] LABS: ALBUMIN 2.5 GM/DL (3.2-4.5); BILIRUBIN,TOTAL 0.5 MG/DL (0.1-1.0); CREATININE SERUM 1.08 MG/DL (0.60-1.30); POTASSIUM 2.9 MMOL/L (3.6-5.0); TOTAL PROTEIN 4.7 GM/DL (6.4-8.2)
[2017-10-19 08:00] VITALS: BP 141/66
[2017-10-19] MEDS: ASPIRIN E.C. 81 MG (ECOTRIN) TAB PO SCH (08:17)
[2017-10-19] MEDS: FUROSEMIDE 20 MG (LASIX) TAB PO SCH (08:17)
[2017-10-19] MEDS: LOSARTAN 50 MG (COZAAR) TAB PO SCH (08:17)
[2017-10-19] MEDS: meTOprolol TARTRATE 25 MG (LOPRESSOR) TABLET PO SCH ×2 (08:18→20:02)
[2017-10-19] MEDS: VITAMIN D3 1,000 UNITS (CHOLECALCIFEROL) TABLET PO SCH (08:18)
[2017-10-19] MEDS: TAMOXIFEN 10 MG (NOLVADEX) TAB PO SCH (08:18)
[2017-10-19] MEDS: MICONAZOLE 2% POWDER (DESENEX AF) 90 GM TOP SCH ×2 (08:19→20:03)
[2017-10-19] MEDS: NYSTATIN CREAM (MYCOSTATIN) 30 GM TUBE TP SCH ×3 (08:19→20:02)
[2017-10-19] MEDS: LIDOCAINE 1% INJ 20 ML 20 ML VIAL INJ SCH ×2 (08:22→20:03)
[2017-10-19] MEDS: FLUTICASONE NASAL SPRAY (FLONASE) 16 GM BTL NS SCH ×2 (08:22→20:02)
[2017-10-19] MEDS: MUPIROCIN 2% OINT 22 GM (BACTROBAN) TUBE TOP SCH ×2 (08:23→20:02)
[2017-10-19] MEDS ORDERED: LECITHIN SOY 400 MG PO SCH (09:00)
[2017-10-19] MEDS ORDERED: NON-FORMULARY MEDICATION 1 EA EA (Losartan Potassium 50 MG) PO SCH (09:00)
[2017-10-19] MEDS ORDERED: TAMOXIFEN CITRATE 20 MG PO SCH (09:00)
[2017-10-19] MEDS ORDERED: NON-FORMULARY MEDICATION 1 EA EA (Vitamin E Acetate (Vitamin E) 400 UNIT) PO SCH (09:00)
[2017-10-19] MEDS ORDERED: NON-FORMULARY MEDICATION 1 EA EA (Cholecalciferol (Vitamin D3) (Vitamin D) 2,000 UNIT) PO SCH (09:00)
[2017-10-19] MEDS ORDERED: NON-FORMULARY MEDICATION 1 EA EA (Vitamin B Complex 1 CAP) PO SCH (09:00)
[2017-10-19] MEDS ORDERED: NON-FORMULARY MEDICATION 1 EA EA (Multivit-Min/FA/Lycopene/Lut (Centrum Silver Tablet) 1 T PO SCH (09:00)
[2017-10-19] MEDS ORDERED: NON-FORMULARY MEDICATION 1 EA EA (Esomeprazole Magnesium (Nexium 24Hr) 20 MG) PO SCH (09:00)
[2017-10-19] MEDS ORDERED: NON-FORMULARY MEDICATION 1 EA EA (Loratadine/Pseudoephedrine (Claritin-D 24 Hour Tablet) 1 PO SCH (09:00)
[2017-10-19] MEDS ORDERED: amLODIPine 5 MG (NORVASC) TAB PO SCH (09:00)
[2017-10-19] MEDS ORDERED: NON-FORMULARY MEDICATION 1 EA EA (Biotin 1,000 MCG) PO SCH (09:00)
[2017-10-19] MEDS: HYDROmorphone 2 MG/ML VIAL (DILAUDID) IVP PRN ×3 (09:24→20:10)
[2017-10-19] MEDS: VITAMIN E 400 INTLU CAP PO SCH (09:24)
[2017-10-19] MEDS: SALSALATE 500 MG PO SCH ×2 (09:53→16:03)
--- NOTE | 2017-10-19 10:28 | Progress Note-Cardiology ---
Cardiology SOAP Progress Note Subjective: Sitting up in bed. She feels her right hand is more tender today and her right arm is more swollen today. No c/o CP or palpitations. No c/o dyspnea. Objective: I&O/Vital Signs 10/19/17 10/19/17 10/19/17 10/19/17 00:00 01:00 04:00 08:00 Temp 99.3 99.5 99.8 Pulse 78 82 87 90 Resp 18 18 20 B/P (MAP) 123/58 (79) 126/58 (80) 141/66 (91) Pulse Ox 94 94 95 O2 Delivery Room Air 10/19/17 00:00 Intake Total 2800 ml Output Total 700 ml Balance 2100 ml Weight (Pounds): 122 Weight (Ounces): 0.0 Weight (Calculated Kilograms): 55.307276 Constitutional: AAO x 3, well-developed, well-nourished Respiratory: No accessory muscle use; other (good bilateral air entry) Cardiovascular: regular rate-rhythm, S1 and S2, systolic murmur (2/6 MSM at card base) Gastrointestional: No tender; soft; No guarding, No rebound; audible bowel sounds Extremities: other (marked swelling and dusky dicoloration of the L hand; blackish discoloration of the tip or the L index finger; arthritic chnages in IP and MCP joints on both hands) Neurologic/Psychiatric: oriented x 3, other (Moves all limbs eaually) Skin: other (see above under extemities exam; irrigation drain in place) Results/Procedures: Labs Laboratory Tests 10/19/17 06:03: White Blood Count 16.8H, Red Blood Count 3.60L, Hemoglobin 12.1, Hematocrit 35, Mean Corpuscular Volume 98, Mean Corpuscular Hemoglobin 34, Mean Corpuscular Hemoglobin Concent 34, Red Cell Distribution Width 14.1, Platelet Count 169, Mean Platelet Volume 11.7H, Neutrophils (%) (Auto) 92H, Lymphocytes (%) (Auto) 3L, Monocytes (%) (Auto) 3, Eosinophils (%) (Auto) 2, Basophils (%) (Auto) 0, Neutrophils # (Auto) 15.5H, Lymphocytes # (Auto) 0.5L, Monocytes # (Auto) 0.5, Eosinophils # (Auto) 0.3, Basophils # (Auto) 0.0, Sodium Level 137, Potassium Level 2.9L, Chloride Level 110H, Carbon Dioxide Level 18L, Anion Gap 9, Blood Urea Nitrogen 13, Creatinine 1.08, Estimat Glomerular Filtration Rate 50, BUN/ Creatinine Ratio 12, Glucose Level 99, Calcium Level 8.0L, Magnesium Level 1.6L , Total Bilirubin 0.5, Aspartate Amino Transf (AST/SGOT) 34, Alanine Aminotransferase (ALT/SGPT) 15, Alkaline Phosphatase 83, Total Protein 4.7L, Albumin 2.5L Microbiology 10/18/17 Gram Stain, Resulted Pending 10/18/17 Anaerobic Culture, Resulted Pending 10/18/17 Surgical Culture - Preliminary, Resulted 10/18/17 Fungal Culture, Resulted Pending A/P: Assessment: Flexor tenosynovitis of the R index finger, s/p debridement on 10/18/17, gangrenous changes of the L index finger - management per Surgical Services Rheumatoid arthritis Hypertension Exertional shortness of breath Echo on 10/18/17: LVEF 60-65%, mod mitral annular calcification, mod aortic valve sclerosis, no evidence of intracardiac thrombus on this study, PASP approx 40 mmHg Electrolyte abnormalities - replacement as ordered Plan: * The symptoms of exertional shortness of breath have not fully been worked up, but surgery for rapidly deteriorating hand appears urgent/emergent. I spoke withe her in detail and explained her card risk to her. She understands all of this and wishes to proceed * A cardiac thrombus leading to L index finger gangrenous changes cannot be excluded. We recommend continuing telemetry. Consider implantable loop recorder after d/c, if PAF not documented during hospitalization Continue aspirin. If A Fib/Flutter is demonstrated, then full oral anticoag will be indicated - this again has been discussed with her * Left index finger management per wound care * Electrolyte abnormalities - replacement as ordered * She reports she no longer takes Norvasc - BP under good control without, therefore we will stop it * Monitor lab closely Physician Assessment Physician Assessment No cp or palp or shortness of breath or syncope Lungs: clear Cor: reg Ext: swelling and redness of hand; gangrenous changes of the R index finger tip ; drain in place in the R hand A&R * As documented in our note above that I updated at the time of this writing ( italics) and as noted below * Continue current regimen * Continue tele * Monitor labs * I discussed echo results and CV issues with her KARINA LENNON Oct 19, 2017 10:28 RAYMOND CLOUD MD FACP FAC CCDS Oct 19, 2017 10:58
[2017-10-19] MEDS: POTASSIUM CL 10MEQ/50ML IVPB 50 ML IV SCH ×4 (10:45→14:11)
[2017-10-19] MEDS: MAGNESIUM 1 GM/100 ML IVPB 100 ML IV SCH ×2 (10:45→11:54)
[2017-10-19] MEDS: D5 NS W/KCL 20 MEQ/L 1,000 ML IV SCH (10:45)
--- NOTE | 2017-10-19 10:46 | Progress Note-Hospitalist ---
Subjective HPI/CC On Admission Date Seen by Provider: Oct 19, 2017 Time Seen by Provider: 09:40 Patient is a 72-year-old white female sent from Dr. Burns's office as a direct admission. She had gone there as a result of swelling and pain in the right index finger. There was some abnormality yesterday but much more so today and there was Considerable pain as well. There was erythema which extended up the volar surface of the forearm and medial surface of the upper arm with erythema also spilling over to the upper outer quadrant of the right breast. She was not clear that there had been any injury or puncture of the finger. Curiously her was just discharged from this floor yesterday after a cellulitis of the left hand beginning with a power drill accident. She also reports pain at the buttocks which is been present for several days. She says that she has previously had an abscess in this area. She also has a considerable arthritic involvement of the IP joints of both hands. Subjective/Events-last exam She is should doing well since surgery yesterday Drained a lot of pustular drainage cultures are pending No amputation required yesterday I appreciate hand surgical skills Maintained on vancomycin and Zosyn empirically with broad-spectrum coverage Dilaudid helps with the pain Low on potassium so supplementing that IV and by mouth and checking magnesium level and supplement that empirically No BM since loose stools on Monday so will initiate Colace and MiraLAX Denies any other issues and she is ambulating well We'll continue IV fluids today then Hep-Lock tomorrow Review of Systems Gastrointestinal: Nausea, Constipation Musculoskeletal: hand pain Focused Exam Lactate Level 10/17/17 14:09: Lactic Acid Level 1.51 Objective Exam Vital Signs Vital Signs Date Time Temp Pulse Resp B/P (MAP) Pulse Ox O2 Delivery O2 Flow Rate FiO2 10/17/17 12:10 99 Room Air 10/17/17 16:34 100.2 104 16 116/55 (75) Capillary Refill : General Appearance: No Apparent Distress, WD/WN, Chronically ill Respiratory: Lungs Clear, Normal Breath Sounds Cardiovascular: Regular Rate, Rhythm, No Edema Neurologic/Psychiatric: Alert, Oriented x3, No Motor/Sensory Deficits, Normal Mood/Affect, apartment locator II-XII Norm as Tested Skin: Normal Color, Warm/Dry, Other (right hand in dressing) Results/Procedures Lab Laboratory Tests 10/19/17 06:03 Patient resulted labs reviewed. Assessment/Plan Assessment and Plan Assess & Plan/Chief Complaint Acute right hand cellulitis with lymphatic spread s/p ischemic changes and necrosis of the tip of the index finger s/p surgery yesterday by hand surgeon Dr Nj cultures pending Long-standing rheumatoid arthritis managed by Dr. Maguire rheumatology in [place] Chronic renal insufficiency managed by Dr. Newman in [place] h/o left breast cancer HTN Hypokalemia Plan: IV abx broad spectrum to continue until cultures Pain control Dr Nj is apprecicated Cardiology evaluation for PAF is appreciated Monitor closely maddie creat Supp potassium Diagnosis/Problems Diagnosis/Problems (1) cellulitis Status: Acute (2) Gangrene of finger of right hand Status: Acute (3) Hypertension Status: Chronic Qualifiers: Hypertension type: essential hypertension Qualified Codes: I10 - Essential (primary) hypertension (4) Renal insufficiency Status: Chronic (5) HX: breast cancer Status: Chronic Clinical Quality Measures DVT/VTE Risk/Contraindication: Risk Factor Score Per Nursin RFS Level Per Nursing on Admit: 3=High JOHN ANDERSON DO Oct 19, 2017 10:46
--- NOTE | 2017-10-19 10:54 | Progress Note-Cardiology ---
Cardiology SOAP Progress Note Subjective: No cp or palp or syncope or shortness of breath Objective: I&O/Vital Signs 10/19/17 10/19/17 10/19/17 10/19/17 00:00 01:00 04:00 08:00 Temp 99.3 99.5 99.8 Pulse 78 82 87 90 Resp 18 18 20 B/P (MAP) 123/58 (79) 126/58 (80) 141/66 (91) Pulse Ox 94 94 95 O2 Delivery Room Air 10/19/17 00:00 Intake Total 2800 ml Output Total 700 ml Balance 2100 ml Weight (Pounds): 122 Weight (Ounces): 0.0 Weight (Calculated Kilograms): 55.240670 Constitutional: AAO x 3, well-developed, well-nourished Respiratory: No accessory muscle use; other (good bilateral air entry) Cardiovascular: regular rate-rhythm, S1 and S2, systolic murmur (2/6 MSM at card base) Gastrointestional: No tender; soft; No guarding, No rebound; audible bowel sounds Extremities: other (marked swelling and dusky dicoloration of the L hand; blackish discoloration of the tip or the L index finger; arthritic chnages in IP and MCP joints on both hands) Neurologic/Psychiatric: oriented x 3, other (Moves all limbs eaually) Skin: other (see above under extemities exam; irrigation drain in place) Results/Procedures: Labs Laboratory Tests 10/19/17 06:03: White Blood Count 16.8H, Red Blood Count 3.60L, Hemoglobin 12.1, Hematocrit 35, Mean Corpuscular Volume 98, Mean Corpuscular Hemoglobin 34, Mean Corpuscular Hemoglobin Concent 34, Red Cell Distribution Width 14.1, Platelet Count 169, Mean Platelet Volume 11.7H, Neutrophils (%) (Auto) 92H, Lymphocytes (%) (Auto) 3L, Monocytes (%) (Auto) 3, Eosinophils (%) (Auto) 2, Basophils (%) (Auto) 0, Neutrophils # (Auto) 15.5H, Lymphocytes # (Auto) 0.5L, Monocytes # (Auto) 0.5, Eosinophils # (Auto) 0.3, Basophils # (Auto) 0.0, Sodium Level 137, Potassium Level 2.9L, Chloride Level 110H, Carbon Dioxide Level 18L, Anion Gap 9, Blood Urea Nitrogen 13, Creatinine 1.08, Estimat Glomerular Filtration Rate 50, BUN/ Creatinine Ratio 12, Glucose Level 99, Calcium Level 8.0L, Magnesium Level 1.6L , Total Bilirubin 0.5, Aspartate Amino Transf (AST/SGOT) 34, Alanine Aminotransferase (ALT/SGPT) 15, Alkaline Phosphatase 83, Total Protein 4.7L, Albumin 2.5L Microbiology 10/18/17 Gram Stain, Resulted Pending 10/18/17 Anaerobic Culture, Resulted Pending 10/18/17 Surgical Culture - Preliminary, Resulted 10/18/17 Fungal Culture, Resulted Pending A/P: Assessment: Flexor tenosynovitis of the R index finger, s/p debridement on 10/18/17, gangrenous changes of the L index finger - management per Surgical Services Rheumatoid arthritis Hypertension Exertional shortness of breath Echo on 10/18/17: LVEF 60-65%, mod mitral annular calcification, mod aortic valve sclerosis, no evidence of intracardiac thrombus on this study, PASP approx 40 mmHg Electrolyte abnormalities - replacement as ordered Plan: * The symptoms of exertional shortness of breath have not fully been worked up, but surgery for rapidly deteriorating hand appears urgent/emergent. I spoke withe her in detail and explained her card risk to her. She understands all of this and wishes to proceed * A cardiac thrombus leading to L index finger gangrenous changes cannot be excluded. We recommend continuing telemetry. Consider implantable loop recorder after d/c, if PAF not documented during hospitalization Continue aspirin. If A Fib/Flutter is demonstrated, then full oral anticoag will be indicated - this again has been discussed with her * Left index finger management per wound care * Electrolyte abnormalities - replacement as ordered * She reports she no longer takes Norvasc - BP under good control without, therefore we will stop it * Monitor lab closely Physician Assessment Physician Assessment No cp or palp or shortness of breath or syncope Lungs: clear Cor: reg Ext: swelling and redness of hand; gangrenous changes of the R index finger tip ; drain in place in the R hand A&R * As documented in our note above that I updated at the time of this writing ( italics) and as noted below * Continue current regimen * Continue tele * Monitor labs * I discussed echo results and CV issues with her RAYMOND CLOUD MD FACP FAC CCDS Oct 19, 2017 10:54
[2017-10-19] MEDS: POLYETHYLENE GLYCOL 17 GM (MIRALAX) PACK PO SCH ×2 (11:58→20:03)
[2017-10-19] MEDS: LACTULOSE SYRUP 10GM/15ML (ENULOSE) 30ML UDC PO SCH ×2 (11:58→20:03)
[2017-10-19] MEDS: DOCUSATE SODIUM 100 MG (COLACE) CAP PO SCH ×2 (11:58→20:02)
[2017-10-19 12:00] VITALS: BP 142/62
--- NOTE | 2017-10-19 12:13 | Anesthesia-General Post-Op ---
General Patient Condition Mental Status/LOC: Same as Preop Cardiovascular: Satisfactory Nausea/Vomiting: Absent Respiratory: Satisfactory Pain: Controlled Complications: Absent Post Op Complications Complications None Follow Up Care/Instructions Patient Instructions None needed. Anesthesia/Patient Condition Patient Condition Patient is doing well, no complaints, stable vital signs, no apparent adverse anesthesia problems. No complications reported per nursing. SILVA ROCA CRNA Oct 19, 2017 12:13
[2017-10-19] MEDS ORDERED: TROUGH ORDER-PHARMACY XX NR (13:00)
[2017-10-19] MEDS: VANCOMYCIN INJECTION 750 MG in NS (IVPB) 250 ML IV SCH (15:03)
[2017-10-19 15:30] VITALS: BP 168/74
--- NOTE | 2017-10-19 15:34 | Physician Progress Note ---
Progress Note Assessment/Plan Date Seen by Provider: Oct 19, 2017 Time Seen by Provider: 03:20 Events since last exam Pt seen and examined POD #1 I&D. Still in significant pain. Swelling is down and her N/V status is intact. Her Index finger is somewhat black and may require additional management that could mean an amputation. Her WBC is down today and overall she is better. WIll reassess tomorrow for possible surgery. Assessment/Plan Flexor tenosynovitis Vitals Last set of Vitals Signs Vital Signs Date Time Temp Pulse Resp B/P (MAP) Pulse Ox O2 Delivery O2 Flow Rate FiO2 10/19/17 12:00 98.9 78 18 142/62 (88) 90 Room Air I&O I&O Intake and Output 10/19/17 00:00 Intake Total 4370 ml Output Total 1100 ml Balance 3270 ml Intake Oral 770 ml IV Total 3600 ml Output Urine Total 1100 ml Labs Laboratory Tests 10/19/17 06:03: White Blood Count 16.8H, Red Blood Count 3.60L, Hemoglobin 12.1, Hematocrit 35, Mean Corpuscular Volume 98, Mean Corpuscular Hemoglobin 34, Mean Corpuscular Hemoglobin Concent 34, Red Cell Distribution Width 14.1, Platelet Count 169, Mean Platelet Volume 11.7H, Neutrophils (%) (Auto) 92H, Lymphocytes (%) (Auto) 3L, Monocytes (%) (Auto) 3, Eosinophils (%) (Auto) 2, Basophils (%) (Auto) 0, Neutrophils # (Auto) 15.5H, Lymphocytes # (Auto) 0.5L, Monocytes # (Auto) 0.5, Eosinophils # (Auto) 0.3, Basophils # (Auto) 0.0, Sodium Level 137, Potassium Level 2.9L, Chloride Level 110H, Carbon Dioxide Level 18L, Anion Gap 9, Blood Urea Nitrogen 13, Creatinine 1.08, Estimat Glomerular Filtration Rate 50, BUN/ Creatinine Ratio 12, Glucose Level 99, Calcium Level 8.0L, Magnesium Level 1.6L , Total Bilirubin 0.5, Aspartate Amino Transf (AST/SGOT) 34, Alanine Aminotransferase (ALT/SGPT) 15, Alkaline Phosphatase 83, Total Protein 4.7L, Albumin 2.5L 10/19/17 13:08: Vancomycin Level Trough 7.3L Microbiology 10/18/17 MRSA Screen - Final, Complete MRSA not isolated 10/18/17 Gram Stain - Final, Resulted 10/18/17 Anaerobic Culture, Resulted Pending 10/18/17 Surgical Culture - Preliminary, Resulted Streptococcus pyogenes Grp A 10/18/17 Fungal Culture, Resulted Pending Focused Exam Lactate Level 10/17/17 14:09: Lactic Acid Level 1.51 Clinical Quality Measures DVT/VTE Risk/Contraindication: Risk Factor Score Per Nursin RFS Level Per Nursing on Admit: 3=High ARIAN GOTTI DO Oct 19, 2017 15:34
[2017-10-19 20:02] VITALS: BP 176/77
[2017-10-20] VITALS (7 sets, daily range): BP systolic 126–194; BP diastolic 61–84
[2017-10-20] MEDS: D5 NS W/KCL 20 MEQ/L 1,000 ML IV SCH ×2 (00:48→06:49)
[2017-10-20] MEDS: VANCOMYCIN INJECTION 750 MG in NS (IVPB) 250 ML IV SCH (02:03)
[2017-10-20] MEDS: PIPERACILLIN SODIUM/TAZOBACTAM 4.5 GM in NS (IVPB) 100 ML IV SCH ×3 (04:12→20:00)
[2017-10-20] MEDS: MULTIVIT W/MINERALS TAB (THERAGRAN M) PO SCH (06:06)
[2017-10-20] MEDS: PANTOPRAZOLE 20 MG TABLET (PROTONIX) PO SCH (06:06)
[2017-10-20] MEDS: SALSALATE 500 MG PO SCH ×2 (06:06→16:54)
[2017-10-20 06:43] LABS: BASOPHILS % (AUTO) 0 % (0-10); EOSINOPHILS # (AUTO) 0.5 10^3/uL (0.0-0.3); EOSINOPHILS % (AUTO) 5 % (0-10); HEMATOCRIT 33 % (35-52); HEMOGLOBIN 11.1 G/DL (11.5-16.0); LYMPHOCYTES # (AUTO) 0.5 X 10^3 (1.0-4.0); LYMPHOCYTES % (AUTO) 5 % (12-44); MEAN CORPUSCULAR HEMOGLOBIN 33 PG (25-34); MEAN CORPUSCULAR HGB CONC 33 G/DL (32-36); MEAN CORPUSCULAR VOLUME 99 FL (80-99); MEAN PLATELET VOLUME 11.4 FL (7.4-10.4); MONOCYTES # (AUTO) 0.9 X 10^3 (0.0-1.0); MONOCYTES % (AUTO) 8 % (0-12); NEUTROPHILS # (AUTO) 9.2 X 10^3 (1.8-7.8); NEUTROPHILS % (AUTO) 83 % (42-75); PLATELET COUNT 182 10^3/uL (130-400); RED BLOOD COUNT 3.37 10^6/uL (4.35-5.85); RED CELL DISTRIBUTION WIDTH 14.1 % (10.0-14.5); WHITE BLOOD COUNT 11.1 10^3/uL (4.3-11.0)
[2017-10-20 07:19] LABS: ALBUMIN 2.3 GM/DL (3.2-4.5); BILIRUBIN,TOTAL 0.3 MG/DL (0.1-1.0); CALCIUM 7.8 MG/DL (8.5-10.1); CREATININE SERUM 1.08 MG/DL (0.60-1.30); MAGNESIUM 1.9 MG/DL (1.8-2.4); POTASSIUM 3.3 MMOL/L (3.6-5.0); TOTAL PROTEIN 4.6 GM/DL (6.4-8.2)
[2017-10-20] MEDS: FLUTICASONE NASAL SPRAY (FLONASE) 16 GM BTL NS SCH ×2 (08:54→21:00)
[2017-10-20] MEDS: DOCUSATE SODIUM 100 MG (COLACE) CAP PO SCH ×2 (08:55→23:00)
[2017-10-20] MEDS: ASPIRIN E.C. 81 MG (ECOTRIN) TAB PO SCH (08:55)
[2017-10-20] MEDS: LOSARTAN 50 MG (COZAAR) TAB PO SCH (08:55)
[2017-10-20] MEDS: meTOprolol TARTRATE 25 MG (LOPRESSOR) TABLET PO SCH ×2 (08:56→23:23)
[2017-10-20] MEDS: FUROSEMIDE 20 MG (LASIX) TAB PO SCH (08:56)
[2017-10-20] MEDS: POLYETHYLENE GLYCOL 17 GM (MIRALAX) PACK PO SCH ×2 (08:56→23:00)
[2017-10-20] MEDS: LACTULOSE SYRUP 10GM/15ML (ENULOSE) 30ML UDC PO SCH ×2 (08:56→23:00)
[2017-10-20] MEDS: VITAMIN D3 1,000 UNITS (CHOLECALCIFEROL) TABLET PO SCH (08:57)
[2017-10-20] MEDS: MICONAZOLE 2% POWDER (DESENEX AF) 90 GM TOP SCH ×2 (08:58→21:00)
[2017-10-20] MEDS: NYSTATIN CREAM (MYCOSTATIN) 30 GM TUBE TP SCH ×3 (08:58→21:00)
[2017-10-20] MEDS: MUPIROCIN 2% OINT 22 GM (BACTROBAN) TUBE TOP SCH ×2 (08:59→21:00)
[2017-10-20] MEDS: LIDOCAINE 1% INJ 20 ML 20 ML VIAL INJ SCH ×2 (09:01→21:00)
[2017-10-20] MEDS: TAMOXIFEN 10 MG (NOLVADEX) TAB PO SCH (09:01)
[2017-10-20] MEDS: VITAMIN E 400 INTLU CAP PO SCH (09:01)
[2017-10-20] MEDS: HYDROmorphone 2 MG/ML VIAL (DILAUDID) IVP PRN ×4 (09:17→23:31)
--- NOTE | 2017-10-20 09:56 | Progress Note-Cardiology ---
Cardiology SOAP Progress Note Subjective: C/O right hand pain and upper arm pain. She feels the redness and swelling in her right arm is worse today. No c/o CP. C/O occ non-productive cough. No c/ o CP or palpitations. Objective: I&O/Vital Signs 10/20/17 10/20/17 10/20/17 10/20/17 00:00 01:00 03:44 07:00 Temp 98.8 99.5 Pulse 82 82 86 84 Resp 16 16 B/P (MAP) 126/61 (82) 148/70 (96) Pulse Ox 95 94 O2 Delivery Room Air Room Air 10/20/17 08:44 Temp 99.3 Pulse 93 Resp 18 B/P (MAP) 174/77 (109) Pulse Ox 94 O2 Delivery Room Air 10/20/17 00:00 Intake Total 2810 ml Output Total 950 ml Balance 1860 ml Weight (Pounds): 122 Weight (Ounces): 0.0 Weight (Calculated Kilograms): 55.370927 Constitutional: AAO x 3, well-developed, well-nourished Respiratory: No accessory muscle use; other (good bilateral air entry) Cardiovascular: regular rate-rhythm, S1 and S2, systolic murmur (2/6 MSM at card base) Gastrointestional: No tender; soft; No guarding, No rebound; audible bowel sounds Extremities: other (marked swelling and dusky dicoloration of the L hand; blackish discoloration of the tip or the L index finger; arthritic chnages in IP and MCP joints on both hands) Neurologic/Psychiatric: oriented x 3, other (Moves all limbs eaually) Skin: other (see above under extemities exam; irrigation drain in place) Results/Procedures: Labs Laboratory Tests 10/19/17 13:08: Vancomycin Level Trough 7.3L 10/20/17 05:33: White Blood Count 11.1H, Red Blood Count 3.37L, Hemoglobin 11.1L, Hematocrit 33L , Mean Corpuscular Volume 99, Mean Corpuscular Hemoglobin 33, Mean Corpuscular Hemoglobin Concent 33, Red Cell Distribution Width 14.1, Platelet Count 182, Mean Platelet Volume 11.4H, Neutrophils (%) (Auto) 83H, Lymphocytes (%) (Auto) 5L, Monocytes (%) (Auto) 8, Eosinophils (%) (Auto) 5, Basophils (%) (Auto) 0, Neutrophils # (Auto) 9.2H, Lymphocytes # (Auto) 0.5L, Monocytes # (Auto) 0.9, Eosinophils # (Auto) 0.5H, Basophils # (Auto) 0.0, Sodium Level 140, Potassium Level 3.3L, Chloride Level 116H, Carbon Dioxide Level 17L, Anion Gap 7, Blood Urea Nitrogen 9, Creatinine 1.08, Estimat Glomerular Filtration Rate 50, BUN/ Creatinine Ratio 8, Glucose Level 94, Calcium Level 7.8L, Magnesium Level 1.9, Total Bilirubin 0.3, Aspartate Amino Transf (AST/SGOT) 31, Alanine Aminotransferase (ALT/SGPT) 22, Alkaline Phosphatase 80, Total Protein 4.6L, Albumin 2.3L Microbiology 10/18/17 MRSA Screen - Final, Complete MRSA not isolated 10/18/17 Gram Stain - Final, Resulted 10/18/17 Anaerobic Culture - Preliminary, Resulted No anaerobes isolated 10/18/17 Surgical Culture - Preliminary, Resulted Streptococcus pyogenes Grp A 10/18/17 Fungal Culture, Resulted Pending A/P: Assessment: Flexor tenosynovitis of the R index finger, s/p debridement on 10/18/17, gangrenous changes of the L index finger - management per Surgical Services Rheumatoid arthritis Hypertension Exertional shortness of breath Echo on 10/18/17: LVEF 60-65%, mod mitral annular calcification, mod aortic valve sclerosis, no evidence of intracardiac thrombus on this study, PASP approx 40 mmHg Electrolyte abnormalities - replacement as ordered Plan: * Left index finger management per wound care/surgical services * Electrolyte abnormalities - replacement as ordered * Monitor lab closely Physician Assessment Physician Assessment No cp or palp or shortness of breath or syncope Lungs: clear Cor: reg Ext: swelling and redness of hand; gangrenous changes of the R index finger tip ; drain in place in the R hand A&R * As documented in our note above that I updated at the time of this writing ( italics) and as noted below * Continue current regimen * Continue tele * Monitor labs KARINA LENNON [facility] Oct 20, 2017 09:56 RAYMOND CLOUD MD [facility] Oct 20, 2017 11:45
--- NOTE | 2017-10-20 10:22 | Progress Note-Hospitalist ---
Subjective HPI/CC On Admission Date Seen by Provider: Oct 20, 2017 Time Seen by Provider: 09:30 Patient is a 72-year-old white female sent from Dr. Burns's office as a direct admission. She had gone there as a result of swelling and pain in the right index finger. There was some abnormality yesterday but much more so today and there was Considerable pain as well. There was erythema which extended up the volar surface of the forearm and medial surface of the upper arm with erythema also spilling over to the upper outer quadrant of the right breast. She was not clear that there had been any injury or puncture of the finger. Curiously her was just discharged from this floor yesterday after a cellulitis of the left hand beginning with a power drill accident. She also reports pain at the buttocks which is been present for several days. She says that she has previously had an abscess in this area. She also has a considerable arthritic involvement of the IP joints of both hands. Subjective/Events-last exam Patient still having a lot of hand pain and the hand surgeon will evaluate her at 3 o'clock today to evaluate the need for amputation of the tip of the index finger She is not walking around as much so I instructed her to do more that today Will Hep-Lock IV fluid Potassium still low so will supplement that some more today by mouth since the IV form makes her arm hurt Loose stools after bowel regimen given Wants breathing treatments and she feels congested with the allergies and she did start on her Flonase Incentive spirometer will be started Overall she wants to go home as soon as possible but understands the need for IV antibiotics Wound culture obtained shows strep so will DC Vanc Review of Systems Pulmonary: Cough Gastrointestinal: Diarrhea Musculoskeletal: hand pain Focused Exam Lactate Level 10/17/17 14:09: Lactic Acid Level 1.51 Objective Exam Vital Signs Vital Signs Date Time Temp Pulse Resp B/P (MAP) Pulse Ox O2 Delivery O2 Flow Rate FiO2 10/17/17 12:10 99 Room Air 10/17/17 16:34 100.2 104 16 116/55 (75) Capillary Refill : General Appearance: No Apparent Distress, WD/WN, Chronically ill Respiratory: Lungs Clear, Normal Breath Sounds Cardiovascular: Regular Rate, Rhythm, No Edema Neurologic/Psychiatric: Alert, Oriented x3, No Motor/Sensory Deficits, Normal 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 Assessment/Plan Assessment and Plan Assess & Plan/Chief Complaint Acute right hand cellulitis with lymphatic spread s/p ischemic changes and necrosis of the tip of the index finger s/p surgery Monday by hand surgeon Dr Nj cultures reveal ID/S so will DC Vanc and maintain Zosyn Long-standing rheumatoid arthritis managed by Dr. aMguire rheumatology in [place] Chronic renal insufficiency managed by Dr. Newman in [place] h/o left breast cancer HTN Hypokalemia Cough due to allergies Plan: IV Zosyn to continue Pain control Dr Nj is apprecicated Cardiology evaluation for PAF is appreciated Monitor closely maddie creat Supp potassium Nebs IS Diagnosis/Problems Diagnosis/Problems (1) cellulitis Status: Acute (2) Gangrene of finger of right hand Status: Acute (3) Hypertension Status: Chronic Qualifiers: Hypertension type: essential hypertension Qualified Codes: I10 - Essential (primary) hypertension (4) Renal insufficiency Status: Chronic (5) HX: breast cancer Status: Chronic (6) Hypokalemia Status: Acute Clinical Quality Measures DVT/VTE Risk/Contraindication: Risk Factor Score Per Nursin RFS Level Per Nursing on Admit: 3=High JOHN ANDERSON DO Oct 20, 2017 10:22
[2017-10-20] MEDS ORDERED: amLODIPine 5 MG (NORVASC) TAB PO ONE (10:30)
[2017-10-20] MEDS: KCL 10 MEQ TAB (MICRO K) PO SCH ×3 (10:55→23:22)
[2017-10-20] MEDS ORDERED: TROUGH ORDER-PHARMACY XX NR (13:00)
--- NOTE | 2017-10-20 15:18 | Physician Progress Note ---
Progress Note Assessment/Plan Date Seen by Provider: Oct 20, 2017 Time Seen by Provider: 03:00 Events since last exam Patient seen and examined. She is feeling better, but is having more necrosis at the tip of the finger. With that and the Group A Strep, she is at risk for Necrotizing fasceitis. Due to this, I am recommending an amputation at this time with the level going up to the base of the metacarpal. She may need some grafting depending on how extensive the debridement is. I have spoke with her son in law, who is a PCP and discussed the plan with him and he agrees with the plan. Assessment/Plan Flexor tenosynovitis Vitals Last set of Vitals Signs Vital Signs Date Time Temp Pulse Resp B/P (MAP) Pulse Ox O2 Delivery O2 Flow Rate FiO2 10/20/17 13:00 86 10/20/17 12:00 99.1 20 186/83 (117) 97 Room Air I&O I&O Intake and Output 10/20/17 00:00 Intake Total 4660 ml Output Total 1250 ml Balance 3410 ml Intake Oral 2310 ml IV Total 2350 ml Output Urine Total 1250 ml # Voids 2 Labs Laboratory Tests 10/20/17 05:33: White Blood Count 11.1H, Red Blood Count 3.37L, Hemoglobin 11.1L, Hematocrit 33L , Mean Corpuscular Volume 99, Mean Corpuscular Hemoglobin 33, Mean Corpuscular Hemoglobin Concent 33, Red Cell Distribution Width 14.1, Platelet Count 182, Mean Platelet Volume 11.4H, Neutrophils (%) (Auto) 83H, Lymphocytes (%) (Auto) 5L, Monocytes (%) (Auto) 8, Eosinophils (%) (Auto) 5, Basophils (%) (Auto) 0, Neutrophils # (Auto) 9.2H, Lymphocytes # (Auto) 0.5L, Monocytes # (Auto) 0.9, Eosinophils # (Auto) 0.5H, Basophils # (Auto) 0.0, Sodium Level 140, Potassium Level 3.3L, Chloride Level 116H, Carbon Dioxide Level 17L, Anion Gap 7, Blood Urea Nitrogen 9, Creatinine 1.08, Estimat Glomerular Filtration Rate 50, BUN/ Creatinine Ratio 8, Glucose Level 94, Calcium Level 7.8L, Magnesium Level 1.9, Total Bilirubin 0.3, Aspartate Amino Transf (AST/SGOT) 31, Alanine Aminotransferase (ALT/SGPT) 22, Alkaline Phosphatase 80, Total Protein 4.6L, Albumin 2.3L Microbiology 10/18/17 MRSA Screen - Final, Complete MRSA not isolated 10/18/17 Acid Fast Bacilli Culture (Ref Lab - Preliminary, Resulted Clinical Quality Measures DVT/VTE Risk/Contraindication: Risk Factor Score Per Nursin RFS Level Per Nursing on Admit: 3=High ARIAN GOTTI DO Oct 20, 2017 15:18
[2017-10-20] MEDS: RT-ALBUTEROL SULF 2.5 MG/3 ML PRE-MIX VIAL INH SCH ×2 (15:21→19:36)
[2017-10-20] MEDS ORDERED: LACTATED RINGERS 1,000 ML IV PRN (16:27)
[2017-10-20] MEDS ORDERED: fentaNYL INJECTION 100 MCG/2 ML AMP ONE (16:28)
[2017-10-20] MEDS ORDERED: MIDAZOLAM 2 MG/2 ML (VERSED) VIAL ONE (16:28)
[2017-10-20] MEDS ORDERED: LIDOCAINE PF 2% 5 ML (XYLOCAINE) VIAL ONE (16:28)
[2017-10-20] MEDS ORDERED: proPOfol 200 MG/20 ML (DIPRIVAN) VIAL IV ONE (16:28)
[2017-10-20] MEDS ORDERED: SEVOFLURANE (ULTANE) 15 ML INHAL SOLN ONE (16:28)
[2017-10-20] MEDS ORDERED: FAMOTIDINE 20MG/2ML IV (PEPCID) IV ONE (16:30)
[2017-10-20] MEDS ORDERED: DEXAMETHASONE 10 MG/ML (DECADRON) 1 ML VIAL ONE (20:20)
[2017-10-20] MEDS ORDERED: PHENYLEPHRINE 100 MCG/ML 10 ML (ANESTHESIA) SYR ONE (20:50)
--- NOTE | 2017-10-20 21:29 | Progress Note-Post Operative ---
Post-Operative Progess Note Surgeon (s)/Sand Operator (s) Surgeon ARIAN GOTTI DO Sand Operator: None Pre-Operative Diagnosis Right Index Finger Flexor tenosynovitis with necrotic tissue Post-Operative Diagnosis same Procedure & Operative Findings Date of Procedure 10/20/17 Procedure Performed/Findings Right index finger ray resection with aggressive I&D of necrotic soft tissue and application of wound vac Anesthesia Type General Estimated Blood Loss Estimated blood loss (mL): minimal Specimens/Packing Specimens Removed none Packing: Wound vac ARIAN GOTTI DO Oct 20, 2017 21:29
[2017-10-20] MEDS ORDERED: HYDROmorphone 2 MG/ML VIAL (DILAUDID) IVP PRN ×2 (21:30→23:15)
[2017-10-20] MEDS ORDERED: ONDANSETRON 4 MG/2 ML (SDV) Z0FRAN IVP PRN (21:30)
--- NOTE | 2017-10-20 21:30 | Anesthesia-General Post-Op ---
General Patient Condition Mental Status/LOC: Same as Preop Cardiovascular: Satisfactory Nausea/Vomiting: Absent Respiratory: Satisfactory Pain: Controlled Complications: Absent Post Op Complications Complications None Follow Up Care/Instructions Patient Instructions None needed. Anesthesia/Patient Condition Patient Condition Patient is doing well, no complaints, stable vital signs, no apparent adverse anesthesia problems. No complications reported per nursing. CAIN MARTÍNEZ CRNA Oct 20, 2017 21:30
[2017-10-21] VITALS (7 sets, daily range): BP systolic 115–137; BP diastolic 55–86
[2017-10-21] MEDS ORDERED: oxyCODONE/APAP 5/325MG (PERCOCET 5) TABLET ONE (04:23)
[2017-10-21] MEDS: PIPERACILLIN SODIUM/TAZOBACTAM 4.5 GM in NS (IVPB) 100 ML IV SCH ×3 (04:36→20:44)
[2017-10-21] MEDS: PANTOPRAZOLE 20 MG TABLET (PROTONIX) PO SCH (06:19)
[2017-10-21 06:41] LABS: BASOPHILS % (AUTO) 0 % (0-10); EOSINOPHILS % (AUTO) 0 % (0-10); HEMATOCRIT 36 % (35-52); HEMOGLOBIN 12.2 G/DL (11.5-16.0); LYMPHOCYTES # (AUTO) 0.3 X 10^3 (1.0-4.0); LYMPHOCYTES % (AUTO) 5 % (12-44); MEAN CORPUSCULAR HEMOGLOBIN 33 PG (25-34); MEAN CORPUSCULAR HGB CONC 34 G/DL (32-36); MEAN CORPUSCULAR VOLUME 98 FL (80-99); MEAN PLATELET VOLUME 11.1 FL (7.4-10.4); MONOCYTES # (AUTO) 0.4 X 10^3 (0.0-1.0); MONOCYTES % (AUTO) 7 % (0-12); NEUTROPHILS # (AUTO) 5.5 X 10^3 (1.8-7.8); NEUTROPHILS % (AUTO) 88 % (42-75); PLATELET COUNT 205 10^3/uL (130-400); RED BLOOD COUNT 3.66 10^6/uL (4.35-5.85); RED CELL DISTRIBUTION WIDTH 14.5 % (10.0-14.5); WHITE BLOOD COUNT 6.3 10^3/uL (4.3-11.0)
[2017-10-21 07:13] LABS: ALBUMIN 2.5 GM/DL (3.2-4.5); BILIRUBIN,TOTAL 0.2 MG/DL (0.1-1.0); CALCIUM 8.3 MG/DL (8.5-10.1); CREATININE SERUM 1.15 MG/DL (0.60-1.30); POTASSIUM 4.1 MMOL/L (3.6-5.0)
[2017-10-21] MEDS: RT-ALBUTEROL SULF 2.5 MG/3 ML PRE-MIX VIAL INH SCH ×2 (08:01→18:42)
[2017-10-21] MEDS: LOSARTAN 50 MG (COZAAR) TAB PO SCH (08:59)
[2017-10-21] MEDS: amLODIPine 5 MG (NORVASC) TAB PO SCH (08:59)
[2017-10-21] MEDS: KCL 10 MEQ TAB (MICRO K) PO SCH ×3 (08:59→20:24)
[2017-10-21] MEDS: DOCUSATE SODIUM 100 MG (COLACE) CAP PO SCH ×2 (08:59→20:44)
[2017-10-21] MEDS: VITAMIN D3 1,000 UNITS (CHOLECALCIFEROL) TABLET PO SCH (08:59)
[2017-10-21] MEDS: SALSALATE 500 MG PO SCH ×2 (08:59→18:07)
[2017-10-21] MEDS: meTOprolol TARTRATE 25 MG (LOPRESSOR) TABLET PO SCH ×2 (09:00→20:24)
[2017-10-21] MEDS: MULTIVIT W/MINERALS TAB (THERAGRAN M) PO SCH (09:01)
[2017-10-21] MEDS: ASPIRIN E.C. 81 MG (ECOTRIN) TAB PO SCH (09:01)
[2017-10-21] MEDS: MICONAZOLE 2% POWDER (DESENEX AF) 90 GM TOP SCH ×2 (09:03→20:41)
[2017-10-21] MEDS: FLUTICASONE NASAL SPRAY (FLONASE) 16 GM BTL NS SCH ×2 (09:04→20:44)
[2017-10-21] MEDS: LACTULOSE SYRUP 10GM/15ML (ENULOSE) 30ML UDC PO SCH (09:07)
[2017-10-21] MEDS: POLYETHYLENE GLYCOL 17 GM (MIRALAX) PACK PO SCH (09:08)
[2017-10-21] MEDS: FUROSEMIDE 20 MG (LASIX) TAB PO SCH (09:10)
[2017-10-21] MEDS: TAMOXIFEN 10 MG (NOLVADEX) TAB PO SCH (09:11)
[2017-10-21] MEDS: NYSTATIN CREAM (MYCOSTATIN) 30 GM TUBE TP SCH ×3 (09:11→20:36)
[2017-10-21] MEDS: oxyCODONE/APAP 5/325MG (PERCOCET 5) TABLET PO PRN ×3 (09:19→18:07)
--- NOTE | 2017-10-21 09:37 | Physician Progress Note ---
Progress Note Assessment/Plan Date Seen by Provider: Oct 21, 2017 Time Seen by Provider: 09:33 Events since last exam Pt seen and examined. Doing much better today. Redness in the hand and axilla is significantly better WBC is down to 6.3 Drsing is clena dry and intact. WIll change tomorrow. N/V is intact. Continue IV Abx. Patient will need a skin graft in the near future once the infection is cleared. Assessment/Plan POD #1 S/P Ray resection and debridement of necrotic material Vitals Last set of Vitals Signs Vital Signs Date Time Temp Pulse Resp B/P (MAP) Pulse Ox O2 Delivery O2 Flow Rate FiO2 10/21/17 08:02 94 Room Air 10/21/17 08:00 98.0 86 18 124/65 (84) 10/21/17 04:00 4.00 I&O I&O Intake and Output 10/21/17 00:00 Intake Total 3260 ml Balance 3260 ml Intake Oral 1010 ml IV Total 2250 ml # Voids 6 # Bowel Movements 2 Labs Laboratory Tests 10/21/17 06:15: White Blood Count 6.3, Red Blood Count 3.66L, Hemoglobin 12.2, Hematocrit 36, Mean Corpuscular Volume 98, Mean Corpuscular Hemoglobin 33, Mean Corpuscular Hemoglobin Concent 34, Red Cell Distribution Width 14.5, Platelet Count 205, Mean Platelet Volume 11.1H, Neutrophils (%) (Auto) 88H, Lymphocytes (%) (Auto) 5L, Monocytes (%) (Auto) 7, Eosinophils (%) (Auto) 0, Basophils (%) (Auto) 0, Neutrophils # (Auto) 5.5, Lymphocytes # (Auto) 0.3L, Monocytes # (Auto) 0.4, Eosinophils # (Auto) 0.0, Basophils # (Auto) 0.0, Sodium Level 137, Potassium Level 4.1, Chloride Level 112H, Carbon Dioxide Level 18L, Anion Gap 7, Blood Urea Nitrogen 10, Creatinine 1.15, Estimat Glomerular Filtration Rate 46, BUN/ Creatinine Ratio 9, Glucose Level 163H, Calcium Level 8.3L, Total Bilirubin 0.2 , Aspartate Amino Transf (AST/SGOT) 23, Alanine Aminotransferase (ALT/SGPT) 20, Alkaline Phosphatase 68, Total Protein 5.0L, Albumin 2.5L Microbiology 10/18/17 MRSA Screen - Final, Complete MRSA not isolated 10/18/17 Acid Fast Bacilli Culture (Ref Lab - Preliminary, Resulted Clinical Quality Measures DVT/VTE Risk/Contraindication: Risk Factor Score Per Nursin RFS Level Per Nursing on Admit: 3=High ARIAN GOTTI DO Oct 21, 2017 9:37 am
[2017-10-21] MEDS: MUPIROCIN 2% OINT 22 GM (BACTROBAN) TUBE TOP SCH ×2 (09:55→20:42)
[2017-10-21] MEDS ORDERED: LACTULOSE SYRUP 10GM/15ML (ENULOSE) 30ML UDC PO PRN (11:45)
[2017-10-21] MEDS ORDERED: POLYETHYLENE GLYCOL 17 GM (MIRALAX) PACK PO PRN (11:45)
--- NOTE | 2017-10-21 11:50 | Progress Note-Hospitalist ---
Subjective HPI/CC On Admission Date Seen by Provider: Oct 21, 2017 Time Seen by Provider: 10:45 Patient is a 72-year-old white female sent from Dr. Burns's office as a direct admission. She had gone there as a result of swelling and pain in the right index finger. There was some abnormality yesterday but much more so today and there was Considerable pain as well. There was erythema which extended up the volar surface of the forearm and medial surface of the upper arm with erythema also spilling over to the upper outer quadrant of the right breast. She was not clear that there had been any injury or puncture of the finger. Curiously her was just discharged from this floor yesterday after a cellulitis of the left hand beginning with a power drill accident. She also reports pain at the buttocks which is been present for several days. She says that she has previously had an abscess in this area. She also has a considerable arthritic involvement of the IP joints of both hands. Subjective/Events-last exam Hand surgeon Dr. Nj called me last night at 2129 and updated me on the fact that the right index finger was amputated due to necrotizing fasciitis. The risks of infection seemed to be well-controlled and he did debridement any tissue that remained. She does have a wound VAC in place and the pain is much improved White count now is still normal and potassium level has normalized after supplementation 3 times a day Wants her bowel regimen to go to prn and I adjusted that on her medication list Patient doesn't feel like ambulate around and I instructed her that that was necessary and someone could carry the wound VAC Having difficulty adjusting to the fact of the amputation of the right index finger which is reasonable and I reassured her and will continue antibiotics as ordered. 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 Assessment/Plan Assessment and Plan Assess & Plan/Chief Complaint Acute right hand cellulitis with lymphatic spread s/p ischemic changes and necrosis of the tip of the index finger s/p surgery Monday by hand surgeon Dr Nj cultures reveal ID/S so we DC Vanc and maintained Zosyn but now right index finger was amputated last night due to necrotizing fascitis Long-standing rheumatoid arthritis managed by Dr. Maguire rheumatology in [place] Chronic renal insufficiency managed by Dr. Newman in [place] h/o left breast cancer HTN Hypokalemia Cough due to allergies Plan: IV Zosyn to continue Pain control Dr Nj is appreciated Cardiology evaluation for PAF is appreciated Monitor closely maddie creat Supp potassium Nebs IS DC Tely Ambulate Diagnosis/Problems Diagnosis/Problems (1) Necrotizing fasciitis Status: Acute (2) Amputation of finger Status: Acute Qualifiers: Encounter type: initial encounter Qualified Codes: S68.119A - Complete traumatic metacarpophalangeal amputation of unspecified finger, initial encounter (3) cellulitis Status: Acute (4) Gangrene of finger of right hand Status: Resolved (5) Hypertension Status: Chronic Qualifiers: Hypertension type: essential hypertension Qualified Codes: I10 - Essential (primary) hypertension (6) Renal insufficiency Status: Chronic (7) HX: breast cancer Status: Chronic (8) Hypokalemia Status: Resolved Clinical Quality Measures DVT/VTE Risk/Contraindication: Risk Factor Score Per Nursin RFS Level Per Nursing on Admit: 3=High JOHN ANDERSON DO Oct 21, 2017 11:50
[2017-10-21] MEDS: VITAMIN E 400 INTLU CAP PO SCH (11:51)
[2017-10-22 03:44] VITALS: BP 117/62
[2017-10-22 04:36] LABS: BASOPHILS % (AUTO) 1 % (0-10); EOSINOPHILS # (AUTO) 0.6 10^3/uL (0.0-0.3); EOSINOPHILS % (AUTO) 9 % (0-10); HEMATOCRIT 34 % (35-52); HEMOGLOBIN 11.3 G/DL (11.5-16.0); LYMPHOCYTES # (AUTO) 0.8 X 10^3 (1.0-4.0); LYMPHOCYTES % (AUTO) 12 % (12-44); MEAN CORPUSCULAR HEMOGLOBIN 33 PG (25-34); MEAN CORPUSCULAR HGB CONC 34 G/DL (32-36); MEAN CORPUSCULAR VOLUME 97 FL (80-99); MONOCYTES # (AUTO) 1.2 X 10^3 (0.0-1.0); MONOCYTES % (AUTO) 17 % (0-12); NEUTROPHILS # (AUTO) 4.2 X 10^3 (1.8-7.8); NEUTROPHILS % (AUTO) 62 % (42-75); PLATELET COUNT 222 10^3/uL (130-400); RED BLOOD COUNT 3.46 10^6/uL (4.35-5.85); RED CELL DISTRIBUTION WIDTH 14.3 % (10.0-14.5); WHITE BLOOD COUNT 6.9 10^3/uL (4.3-11.0)
[2017-10-22] MEDS: PIPERACILLIN SODIUM/TAZOBACTAM 4.5 GM in NS (IVPB) 100 ML IV SCH (04:37)
[2017-10-22] MEDS: oxyCODONE/APAP 5/325MG (PERCOCET 5) TABLET PO PRN ×4 (04:38→21:05)
[2017-10-22 04:59] LABS: ALBUMIN 2.5 GM/DL (3.2-4.5); BILIRUBIN,TOTAL 0.2 MG/DL (0.1-1.0); CALCIUM 8.1 MG/DL (8.5-10.1); CREATININE SERUM 1.28 MG/DL (0.60-1.30); POTASSIUM 3.5 MMOL/L (3.6-5.0); TOTAL PROTEIN 4.9 GM/DL (6.4-8.2)
[2017-10-22] MEDS: MULTIVIT W/MINERALS TAB (THERAGRAN M) PO SCH (06:14)
[2017-10-22] MEDS: PANTOPRAZOLE 20 MG TABLET (PROTONIX) PO SCH (06:14)
[2017-10-22] MEDS: SALSALATE 500 MG PO SCH ×2 (06:16→18:19)
[2017-10-22] MEDS: RT-ALBUTEROL SULF 2.5 MG/3 ML PRE-MIX VIAL INH SCH ×2 (07:03→19:31)
[2017-10-22 08:00] VITALS: BP 123/65
[2017-10-22] MEDS: DOCUSATE SODIUM 100 MG (COLACE) CAP PO SCH ×2 (08:59→21:05)
[2017-10-22] MEDS: ASPIRIN E.C. 81 MG (ECOTRIN) TAB PO SCH (08:59)
[2017-10-22] MEDS: FLUTICASONE NASAL SPRAY (FLONASE) 16 GM BTL NS SCH ×2 (08:59→21:03)
[2017-10-22] MEDS: LOSARTAN 50 MG (COZAAR) TAB PO SCH (09:00)
[2017-10-22] MEDS: FUROSEMIDE 20 MG (LASIX) TAB PO SCH ×2 (09:00→10:49)
[2017-10-22] MEDS: amLODIPine 5 MG (NORVASC) TAB PO SCH ×2 (09:00→09:05)
[2017-10-22] MEDS: meTOprolol TARTRATE 25 MG (LOPRESSOR) TABLET PO SCH ×2 (09:00→21:04)
[2017-10-22] MEDS: KCL 10 MEQ TAB (MICRO K) PO SCH ×4 (09:00→21:05)
[2017-10-22] MEDS: TAMOXIFEN 10 MG (NOLVADEX) TAB PO SCH (09:00)
[2017-10-22] MEDS: VITAMIN E 400 INTLU CAP PO SCH (09:01)
[2017-10-22] MEDS: VITAMIN D3 1,000 UNITS (CHOLECALCIFEROL) TABLET PO SCH (09:01)
[2017-10-22] MEDS: MICONAZOLE 2% POWDER (DESENEX AF) 90 GM TOP SCH ×2 (09:02→21:04)
[2017-10-22] MEDS: NYSTATIN CREAM (MYCOSTATIN) 30 GM TUBE TP SCH ×3 (09:03→21:03)
[2017-10-22] MEDS: MUPIROCIN 2% OINT 22 GM (BACTROBAN) TUBE TOP SCH ×2 (09:09→21:04)
--- NOTE | 2017-10-22 10:41 | Progress Note-Standard ---
Standard Progress Note Progress Notes/Assess & Plan Date Seen by Provider: Oct 22, 2017 Time Seen by Provider: 10:34 Progress/Assessment & Plan Pt seen and examined redness in the hand and arm are significantly better. Her pain is controlled. SHe has normal sensation in her fingers. The wound vac is in place and working. Assessment: Flexor tenosynovitis with possible early Necrotizing Fasceitis POD # 2 from debridement and wound vac placement Plan: WIll Plan to do and I&D of the hand with application of Integra and wound vac on monday Anticipate discharge on monday WIll defer to IM for antibiotic treatment WIll need a home health eval for vac changes every 3-5 days and OT for hand motion intermodal customer service plan will be to place the integra for [address] a split thickness skin graft in 3 weeks She may need the home wound vac for a total of 6 weeks ARIAN GOTTI DO Oct 22, 2017 10:41 am
--- NOTE | 2017-10-22 11:23 | Progress Note-Hospitalist ---
Subjective HPI/CC On Admission Date Seen by Provider: Oct 22, 2017 Time Seen by Provider: 10:30 Patient is a 72-year-old white female sent from Dr. Burns's office as a direct admission. She had gone there as a result of swelling and pain in the right index finger. There was some abnormality yesterday but much more so today and there was Considerable pain as well. There was erythema which extended up the volar surface of the forearm and medial surface of the upper arm with erythema also spilling over to the upper outer quadrant of the right breast. She was not clear that there had been any injury or puncture of the finger. Curiously her was just discharged from this floor yesterday after a cellulitis of the left hand beginning with a power drill accident. She also reports pain at the buttocks which is been present for several days. She says that she has previously had an abscess in this area. She also has a considerable arthritic involvement of the IP joints of both hands. 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 I spoke to Dr Nj and he will place the collagen graft to enable the formal skin graft in 3 weeks. will be consulted for wound vac and IV abx that I have changed to Rocephin 2 grams IV daily and DC Zosyn since the final Cx were resulted IV midline will be placed today due to need for IV abx. Monday will be the DC day per Dr Mcfadden Need to confer with her Oncologist Dr Elizalde at [facility] due to chemotherapy drug a major factor in the virulence status of this finger issue. Checked meds and labs Potassium low again so will change to 5 times a day. + ambulation + BM Decides on her own when she will take some of her meds or not. Review of Systems General: Fatigue Musculoskeletal: hand pain Objective Exam Vital Signs Vital Signs Date Time Temp Pulse Resp B/P (MAP) Pulse Ox O2 Delivery O2 Flow Rate FiO2 10/17/17 12:10 99 Room Air 10/17/17 16:34 100.2 104 16 116/55 (75) 4/13/18 22:15 4.00 Capillary Refill : General Appearance: No Apparent Distress, WD/WN Respiratory: Lungs Clear, Normal Breath Sounds Cardiovascular: Regular Rate, Rhythm, No Edema Neurologic/Psychiatric: Alert, Oriented x3, No Motor/Sensory Deficits, bodybuilder II- XII Norm as Tested, Depressed Affect Skin: Normal Color, Warm/Dry, Other (right hand with wound vac and dressing) Results/Procedures Lab Laboratory Tests 10/22/17 04:20 Patient resulted labs reviewed. Assessment/Plan Assessment and Plan Assess & Plan/Chief Complaint Acute right hand cellulitis with lymphatic spread s/p ischemic changes and necrosis of the tip of the index finger s/p surgery Monday by hand surgeon Dr Nj cultures reveal ID/S so we DC Vanc and maintained Zosyn but right index finger required amputation Monday night due to necrotizing fascitis which was so severe it would have threatened her life within 48 hours of amputation time now having midline placed for 6 weeks of abx which I am changing to Rocephin 2 grams daily along with wound vac in process of collagen graft placement then DC Monday Long-standing rheumatoid arthritis managed by Dr. Maguire rheumatology in [place] Chronic renal insufficiency managed by Dr. Newman in [place] h/o left breast cancer on chemotherapy which may have lead to virulence factor in infection but patient declines to stop it until her Oncologist Dr Elizalde at [facility] tells her to do so HTN Hypokalemia recurrent Cough due to allergies placed on Nebs Plan: IV Zosyn DC and change to Rocephin 2 grams IV daily to facilitate IV administration at DC for 6 weeks of treatment due to the severity of the infection per hand surgeon Pain control Dr Nj is appreciated Cardiology evaluation for PAF is appreciated Monitor closely maddie creat Supplement potassium 5 times a day today increased from TID Nebs IS Ambulate Midline Collagen graft placement then DC Monday and needs HH Inquire on Monday with her Oncologist Dr Elizalde(sp?) at [facility] if chemotherapy pill can be DC'ed Diagnosis/Problems Diagnosis/Problems (1) Necrotizing fasciitis Status: Acute (2) Amputation of finger Status: Acute Qualifiers: Encounter type: initial encounter Qualified Codes: S68.119A - Complete traumatic metacarpophalangeal amputation of unspecified finger, initial encounter (3) cellulitis Status: Acute (4) Gangrene of finger of right hand Status: Resolved (5) Hypertension Status: Chronic Qualifiers: Hypertension type: essential hypertension Qualified Codes: I10 - Essential (primary) hypertension (6) Renal insufficiency Status: Chronic (7) HX: breast cancer Status: Chronic (8) Hypokalemia Status: Acute Clinical Quality Measures DVT/VTE Risk/Contraindication: Risk Factor Score Per Nursin RFS Level Per Nursing on Admit: 3=High JOHN ANDERSON DO Oct 22, 2017 11:23
[2017-10-22 12:00] VITALS: BP 137/63
--- NOTE | 2017-10-22 15:05 | Progress Note-Cardiology ---
Cardiology SOAP Progress Note Subjective: No cp or palp or syncope or shortness of breath R hand and arm discomfort better, but not resolved Objective: I&O/Vital Signs 10/22/17 10/22/17 10/22/17 10/22/17 03:44 07:03 08:00 12:00 Temp 97.9 96.2 97.8 Pulse 78 89 78 Resp 18 20 20 B/P (MAP) 117/62 (80) 123/65 (84) 137/63 (87) Pulse Ox 96 93 97 93 O2 Delivery Room Air Room Air Room Air Room Air 10/22/17 00:00 Intake Total 1720 ml Output Total 6 ml Balance 1714 ml Weight (Pounds): 122 Weight (Ounces): 0.0 Weight (Calculated Kilograms): [id number] Constitutional: AAO x 3, well-developed, well-nourished Respiratory: No accessory muscle use; other (good bilateral air entry) Cardiovascular: regular rate-rhythm, S1 and S2, systolic murmur (2/6 MSM at card base) Gastrointestional: No tender; soft; No guarding, No rebound; audible bowel sounds Extremities: other (swelling and reddist discoloration of R hand and forearm; R hand under dressing post R index finger amputation and surgical I&D for tenosynovitis and necrotizing fasciitis) Neurologic/Psychiatric: oriented x 3, other (Moves all limbs eaually) Skin: other (see above under extemities exam; irrigation drain in place) Results/Procedures: Labs Laboratory Tests 10/22/17 04:20: White Blood Count 6.9, Red Blood Count 3.46L, Hemoglobin 11.3L, Hematocrit 34L, Mean Corpuscular Volume 97, Mean Corpuscular Hemoglobin 33, Mean Corpuscular Hemoglobin Concent 34, Red Cell Distribution Width 14.3, Platelet Count 222, Mean Platelet Volume 11.0H, Neutrophils (%) (Auto) 62, Lymphocytes (%) (Auto) 12 , Monocytes (%) (Auto) 17H, Eosinophils (%) (Auto) 9, Basophils (%) (Auto) 1, Neutrophils # (Auto) 4.2, Lymphocytes # (Auto) 0.8L, Monocytes # (Auto) 1.2H, Eosinophils # (Auto) 0.6H, Basophils # (Auto) 0.0, Sodium Level 142, Potassium Level 3.5L, Chloride Level 114H, Carbon Dioxide Level 18L, Anion Gap 10, Blood Urea Nitrogen 12, Creatinine 1.28, Estimat Glomerular Filtration Rate 41, BUN/ Creatinine Ratio 9, Glucose Level 95, Calcium Level 8.1L, Total Bilirubin 0.2, Aspartate Amino Transf (AST/SGOT) 17, Alanine Aminotransferase (ALT/SGPT) 16, Alkaline Phosphatase 64, Total Protein 4.9L, Albumin 2.5L Microbiology 10/18/17 MRSA Screen - Final, Complete MRSA not isolated 10/18/17 Acid Fast Bacilli Culture (Ref Lab - Preliminary, Resulted A/P: Assessment: Flexor tenosynovitis of the R index finger and prob early necrotizing fasciitis , being managed by Michael Nj and Cris, s/p debridement and amputation of R index finger, on antibiotics Rheumatoid arthritis Hypertension Exertional shortness of breath Echo on 10/18/17: LVEF 60-65%, mod mitral annular calcification, mod aortic valve sclerosis, no evidence of intracardiac thrombus on this study, PASP approx 40 mmHg No significant arrhythmia recorded on several days of telemetry Plan: * Cardiac status stable * We will continue to see her on an as needed basis RAYMOND CLOUD MD FACP FAC CCDS Oct 22, 2017 15:05
[2017-10-22] MEDS: cefTRIAXone INJECTION 2,000 MG in NS (IVPB) 100 ML IV SCH (15:56)
[2017-10-22 19:27] VITALS: BP 161/72
[2017-10-23] VITALS: BP 139/66
[2017-10-23] MEDS: oxyCODONE/APAP 5/325MG (PERCOCET 5) TABLET PO PRN ×2 (03:59→20:20)
[2017-10-23 04:00] VITALS: BP 146/69
[2017-10-23 06:02] LABS: BASOPHILS # (AUTO) 0.1 10^3/uL (0.0-0.1); BASOPHILS % (AUTO) 1 % (0-10); EOSINOPHILS # (AUTO) 0.7 10^3/uL (0.0-0.3); EOSINOPHILS % (AUTO) 12 % (0-10); HEMATOCRIT 35 % (35-52); HEMOGLOBIN 11.8 G/DL (11.5-16.0); LYMPHOCYTES # (AUTO) 0.9 X 10^3 (1.0-4.0); LYMPHOCYTES % (AUTO) 16 % (12-44); MEAN CORPUSCULAR HEMOGLOBIN 32 PG (25-34); MEAN CORPUSCULAR HGB CONC 33 G/DL (32-36); MEAN CORPUSCULAR VOLUME 96 FL (80-99); MEAN PLATELET VOLUME 10.7 FL (7.4-10.4); MONOCYTES # (AUTO) 0.9 X 10^3 (0.0-1.0); MONOCYTES % (AUTO) 14 % (0-12); NEUTROPHILS # (AUTO) 3.4 X 10^3 (1.8-7.8); NEUTROPHILS % (AUTO) 57 % (42-75); PLATELET COUNT 289 10^3/uL (130-400); RED BLOOD COUNT 3.66 10^6/uL (4.35-5.85); RED CELL DISTRIBUTION WIDTH 14.6 % (10.0-14.5)
[2017-10-23] MEDS: MULTIVIT W/MINERALS TAB (THERAGRAN M) PO SCH (06:19)
[2017-10-23] MEDS: PANTOPRAZOLE 20 MG TABLET (PROTONIX) PO SCH (06:19)
[2017-10-23] MEDS: KCL 10 MEQ TAB (MICRO K) PO SCH ×5 (06:19→20:20)
[2017-10-23 06:21] LABS: ALBUMIN 2.5 GM/DL (3.2-4.5); BILIRUBIN,TOTAL 0.2 MG/DL (0.1-1.0); CALCIUM 8.4 MG/DL (8.5-10.1); CREATININE SERUM 1.17 MG/DL (0.60-1.30); POTASSIUM 3.7 MMOL/L (3.6-5.0); TOTAL PROTEIN 4.7 GM/DL (6.4-8.2)
[2017-10-23] MEDS: RT-ALBUTEROL SULF 2.5 MG/3 ML PRE-MIX VIAL INH SCH ×2 (06:36→18:55)
[2017-10-23 08:00] VITALS: BP 179/77
[2017-10-23] MEDS: TAMOXIFEN 10 MG (NOLVADEX) TAB PO SCH ×2 (08:01→08:18)
[2017-10-23] MEDS: meTOprolol TARTRATE 25 MG (LOPRESSOR) TABLET PO SCH ×2 (08:01→20:20)
[2017-10-23] MEDS: amLODIPine 5 MG (NORVASC) TAB PO SCH (08:02)
[2017-10-23] MEDS: ASPIRIN E.C. 81 MG (ECOTRIN) TAB PO SCH (08:02)
[2017-10-23] MEDS: LOSARTAN 50 MG (COZAAR) TAB PO SCH (08:02)
[2017-10-23] MEDS: DOCUSATE SODIUM 100 MG (COLACE) CAP PO SCH ×3 (08:02→20:22)
[2017-10-23] MEDS: VITAMIN E 400 INTLU CAP PO SCH (08:02)
[2017-10-23] MEDS: VITAMIN D3 1,000 UNITS (CHOLECALCIFEROL) TABLET PO SCH (08:02)
[2017-10-23] MEDS: NYSTATIN CREAM (MYCOSTATIN) 30 GM TUBE TP SCH ×3 (08:03→20:24)
[2017-10-23] MEDS: FLUTICASONE NASAL SPRAY (FLONASE) 16 GM BTL NS SCH ×2 (08:03→20:22)
[2017-10-23] MEDS: SALSALATE 500 MG PO SCH ×2 (08:03→16:49)
[2017-10-23] MEDS: MUPIROCIN 2% OINT 22 GM (BACTROBAN) TUBE TOP SCH ×2 (08:03→20:22)
[2017-10-23 12:00] VITALS: BP 156/58
--- NOTE | 2017-10-23 12:28 | Physician Progress Note ---
Progress Note Assessment/Plan Date Seen by Provider: Oct 23, 2017 Time Seen by Provider: 12:27 Events since last exam Pt seen and examined and continues to do better. We will schedule an I&D with integra graft and wound vac tomorrow. Assessment/Plan POD #1 S/P Ray resection and debridement of necrotic material Vitals Last set of Vitals Signs Vital Signs Date Time Temp Pulse Resp B/P (MAP) Pulse Ox O2 Delivery O2 Flow Rate FiO2 10/23/17 08:00 98.5 93 18 179/77 (111) 96 Room Air 10/21/17 04:00 4.00 I&O I&O Intake and Output 10/23/17 00:00 Intake Total 2300 ml Balance 2300 ml Intake Oral 2300 ml # Voids 10 Labs Laboratory Tests 10/23/17 05:33: White Blood Count 6.0, Red Blood Count 3.66L, Hemoglobin 11.8, Hematocrit 35, Mean Corpuscular Volume 96, Mean Corpuscular Hemoglobin 32, Mean Corpuscular Hemoglobin Concent 33, Red Cell Distribution Width 14.6H, Platelet Count 289, Mean Platelet Volume 10.7H, Neutrophils (%) (Auto) 57, Lymphocytes (%) (Auto) 16 , Monocytes (%) (Auto) 14H, Eosinophils (%) (Auto) 12H, Basophils (%) (Auto) 1, Neutrophils # (Auto) 3.4, Lymphocytes # (Auto) 0.9L, Monocytes # (Auto) 0.9, Eosinophils # (Auto) 0.7H, Basophils # (Auto) 0.1, Sodium Level 142, Potassium Level 3.7, Chloride Level 114H, Carbon Dioxide Level 19L, Anion Gap 9, Blood Urea Nitrogen 12, Creatinine 1.17, Estimat Glomerular Filtration Rate 45, BUN/ Creatinine Ratio 10, Glucose Level 75, Calcium Level 8.4L, Total Bilirubin 0.2, Aspartate Amino Transf (AST/SGOT) 24, Alanine Aminotransferase (ALT/SGPT) 17, Alkaline Phosphatase 58, Total Protein 4.7L, Albumin 2.5L Microbiology 10/18/17 MRSA Screen - Final, Complete MRSA not isolated 10/18/17 Acid Fast Bacilli Culture (Ref Lab - Preliminary, Resulted Clinical Quality Measures DVT/VTE Risk/Contraindication: Risk Factor Score Per Nursin RFS Level Per Nursing on Admit: 3=High ARIAN GOTTI DO Oct 23, 2017 12:28 pm
--- NOTE | 2017-10-23 12:34 | Progress Note-Hospitalist ---
Subjective HPI/CC On Admission Date Seen by Provider: Oct 23, 2017 Time Seen by Provider: 12:29 Patient is a 72-year-old white female sent from Dr. Burns's office as a direct admission. She had gone there as a result of swelling and pain in the right index finger. There was some abnormality yesterday but much more so today and there was Considerable pain as well. There was erythema which extended up the volar surface of the forearm and medial surface of the upper arm with erythema also spilling over to the upper outer quadrant of the right breast. She was not clear that there had been any injury or puncture of the finger. Curiously her was just discharged from this floor yesterday after a cellulitis of the left hand beginning with a power drill accident. She also reports pain at the buttocks which is been present for several days. She says that she has previously had an abscess in this area. She also has a considerable arthritic involvement of the IP joints of both hands. Subjective/Events-last exam Pt reports feeling better today. She is having some leg pain from her swelling but does not want to take a lasix again today because she was up urinating too much. Objective Exam Vital Signs Vital Signs Date Time Temp Pulse Resp B/P (MAP) Pulse Ox O2 Delivery O2 Flow Rate FiO2 10/17/17 12:10 99 Room Air 10/17/17 16:34 100.2 104 16 116/55 (75) 10/20/17 22:15 4.00 Capillary Refill : General Appearance: No Apparent Distress, WD/WN Respiratory: Lungs Clear, No Respiratory Distress Cardiovascular: Regular Rate, Rhythm, No Murmur Extremity: Other (right hand s/p index finger amputation- wound vac in place) Neurologic/Psychiatric: Alert, Oriented x3, Normal Mood/Affect Results/Procedures Lab Laboratory Tests 10/23/17 05:33 Patient resulted labs reviewed. Assessment/Plan Assessment and Plan Assess & Plan/Chief Complaint Acute right hand cellulitis with lymphatic spread s/p ischemic changes and necrosis of the tip of the index finger s/p surgery Monday by hand surgeon Dr Nj but right index finger required amputation Monday night due to necrotizing fascitis which was so severe it would have threatened her life within 48 hours of amputation time Long-standing rheumatoid arthritis managed by Dr. Maguire rheumatology in [place] Chronic renal insufficiency managed by Dr. Newman in [place] h/o left breast cancer on Tamoxifen HTN Hypokalemia recurrent Plan: Continue Rocephin IV for 6 weeks of treatment due to the severity of the infection per hand surgeon Discussed with Dr Nj will decreased to 1g as no bone involvement as s/p amputation Pain control Hand Surgery consulted, appreciate recs Cardiology evaluation for PAF is appreciated Continue potassium Nebs IS Ambulate Midline ordered- discussing with PICC team about being able to do it during surgery Collagen graft placement then DC Monday and needs HH Patient to inquire with her Oncologist Dr Elizalde at [facility] if chemotherapy pill can be DC'ed and with Rheumatology about her medications as well Clinical Quality Measures DVT/VTE Risk/Contraindication: Risk Factor Score Per Nursin RFS Level Per Nursing on Admit: 3=High IVETTE MONSIVAIS MD Oct 23, 2017 12:34 pm
--- NOTE | 2017-10-23 13:08 | Occupational Therapy Eval ---
OT Evaluation-General/PLF Medical Diagnosis Admission Date Oct 17, 2017 at 12:40 Medical Diagnosis: Cellulites right index finger Onset Date: Oct 17, 2017 Therapy Diagnosis Therapy Diagnosis: decreased hand ROM Height/Weight Height (Feet): 5 Height (Inches): 3.00 Weight (Pounds): 122 Weight (Ounces): 0.0 Precautions Precautions/Isolations: Fall Prevention, Standard Precautions Safety Interventions: None Referral Physician: Clem Referral Comments start finger ROM daily Medical History Pertinent Medical History: HTN, Renal Insufficiency Additional Medical History rheumatoid arthritis, breast cancer Current History Pt admitted with right index finger cellulitis. Pt had an I&D on 10/18, but required amputation of right index finger on 10/20. Reviewed History: Yes Social History Current Living Status: Spouse ADL-Prior Level of Function ADL PLOF Comments Pt reports being independent. Did not use any assistive devices. 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 Pt states physician told her to try and move her fingers and then demonstrates to therapist. Pt reports 6/10 pain in right hand and in ankles Spoke with RN who states pt is ready for therapy. No restrictions per RN. Mental Status/Objective Patient Orientation: Person, Place, Situation Attachments: IV, Other-See Comments Current Glasses/Contacts: Yes Hand Dominance: Left Upper Extremity ROM impaired right hand Upper Extremity Coordination impaired right ADL-Treatment ADL-Current Pt states she took a shower this morning with a little bit of assistance. Pt states she is able to feed herself with left hand after set up. Pt supine to sit with modified independence. Pt sat EOB with good balance. Pt was instructed in gentle right hand ROM exercises. Pt states her ROM was somewhat limited prior to surgery secondary to arthritic changes in hands. Pt able to perform ROM exercises after demonstration with increased time. Pt's middle finger is more limited than the other digits. Pt states ROM does not significantly increase pain in right hand. Pt sit to stand with modified independence. Sidesteps to HOB with good balance. Pt resting in bed with needs met after session. Functional [place] Measure 0=Not Assessed/NA 4=Minimal Assistance 1=Total Assistance 5=Supervision or Setup 2=Maximal Assistance 6=Modified [place] 3=Moderate Assistance 7=Complete IndependenceIRFPAI Quality Coding Scale 6 Independent with activity with or without an assistive device 5 Patient requires set up or clean up by helper. Patient completes activity by themselves 4 Supervision or touching assist (CGA). [place] provide cues , steadying assist 3 The helper provides less than half the effort to complete the activity 2 The helper provides more than half the effort to complete the activity 1 Dependent. The helper does all the effort to complete an activity 7 Patient refused to complete or attempt activity 9 The patient did not perform the activity before the current illness or injury 88 Not attempted due to Medical conditions or safety concerns Eating (FIM): 5 Education OT Patient Education: Exercise program, Rehab process Teaching Recipient: Patient Teaching Methods: Demonstration Response to Teaching: Return Demonstration OT Short Term Goals Short Term Goals 1=Demonstrate adherence to instructed precautions during ADL tasks. 2=Patient will verbalize/demonstrate understanding of assistive devices/ modifications for ADL. 3=Patient will improve strength/tolerance for activity to enable patient to perform ADL's. OT Assisted Goals Assisted Goals Time Frame: Oct 30, 2017 Upper Body Dressing(FIM): 5 Lower Body Dressing(FIM): 5 Pt will be independent with right hand ROM exercises. Additional Goals: 1-Demonstrate ADL Tasks, 2-Verbalize Understanding, 3- ImproveStrength/Yg 1=Demonstrate adherence to instructed precautions during ADL tasks. 2=Patient will verbalize/demonstrate understanding of assistive devices/ modifications for ADL. 3=Patient will improve strength/tolerance for activity to enable patient to perform ADL's. OT Education/Plan Problem List/Assessment Assessment: Decreased UE Strength, Impaired Coordination, Impaired Self-Care Skills, Restricted Funct UE ROM Pt admitted with right index finger cellulitis and is now s/p amputation. Pt to benefit from skilled OT for finger ROM per physician orders. Will monitor ADL completion and safety. Discharge Recommendations Plan/Recommendations: Continue POC Treatment Plan/Plan of Care Treatment,Training & Education: Yes Patient would benefit from OT for education, treatment and training to promote independence in ADL's, mobility, safety and/or upper extremity function for ADL' s. Plan of Care: ADL Retraining, UE Funct Exercise/Act Treatment Duration: Oct 30, 2017 Frequency: 5 times per week Estimated Hrs Per Day: .25 hour per day Agreement: Yes Rehab Potential: Good Time/GCodes Start Time: 10:06 Stop Time: 10:39 Total Time Billed (hr/min): 33 Billed Treatment Time 1 visit, EVL(15minutes), EX(18minutes) WU PINTO OT Oct 23, 2017 13:08
[2017-10-23] MEDS: cefTRIAXone INJECTION 2,000 MG in NS (IVPB) 100 ML IV SCH (15:27)
[2017-10-23 16:30] VITALS: BP 171/74
[2017-10-23] MEDS: hydrALAZINE (APRESOLINE) 25 MG TAB PO PRN (17:08)
[2017-10-23 19:32] VITALS: BP 141/66
[2017-10-24 00:08] VITALS: BP 130/63
[2017-10-24 04:00] VITALS: BP 198/101
[2017-10-24] MEDS: KCL 10 MEQ TAB (MICRO K) PO SCH ×5 (06:06→20:22)
[2017-10-24] MEDS: PANTOPRAZOLE 20 MG TABLET (PROTONIX) PO SCH (06:06)
[2017-10-24] MEDS: MULTIVIT W/MINERALS TAB (THERAGRAN M) PO SCH (06:06)
[2017-10-24] MEDS: SALSALATE 500 MG PO SCH ×2 (06:07→17:00)
[2017-10-24 06:10] LABS: BASOPHILS # (AUTO) 0.1 10^3/uL (0.0-0.1); BASOPHILS % (AUTO) 1 % (0-10); EOSINOPHILS # (AUTO) 0.6 10^3/uL (0.0-0.3); EOSINOPHILS % (AUTO) 9 % (0-10); HEMATOCRIT 37 % (35-52); HEMOGLOBIN 12.5 G/DL (11.5-16.0); LYMPHOCYTES % (AUTO) 15 % (12-44); MEAN CORPUSCULAR HEMOGLOBIN 33 PG (25-34); MEAN CORPUSCULAR HGB CONC 34 G/DL (32-36); MEAN CORPUSCULAR VOLUME 97 FL (80-99); MEAN PLATELET VOLUME 10.5 FL (7.4-10.4); MONOCYTES # (AUTO) 0.7 X 10^3 (0.0-1.0); MONOCYTES % (AUTO) 9 % (0-12); NEUTROPHILS # (AUTO) 4.7 X 10^3 (1.8-7.8); NEUTROPHILS % (AUTO) 67 % (42-75); PLATELET COUNT 341 10^3/uL (130-400); RED BLOOD COUNT 3.81 10^6/uL (4.35-5.85); RED CELL DISTRIBUTION WIDTH 14.8 % (10.0-14.5)
[2017-10-24 06:24] LABS: CALCIUM 8.6 MG/DL (8.5-10.1); CREATININE SERUM 1.13 MG/DL (0.60-1.30)
[2017-10-24] MEDS: LOSARTAN 50 MG (COZAAR) TAB PO SCH (06:25)
[2017-10-24] MEDS: meTOprolol TARTRATE 25 MG (LOPRESSOR) TABLET PO SCH ×2 (06:25→20:22)
[2017-10-24] MEDS: amLODIPine 5 MG (NORVASC) TAB PO SCH (06:25)
[2017-10-24] MEDS: hydrALAZINE (APRESOLINE) 25 MG TAB PO PRN (06:25)
[2017-10-24] MEDS: RT-ALBUTEROL SULF 2.5 MG/3 ML PRE-MIX VIAL INH SCH ×2 (07:32→18:59)
[2017-10-24] MEDS: VITAMIN E 400 INTLU CAP PO SCH (07:38)
[2017-10-24] MEDS: VITAMIN D3 1,000 UNITS (CHOLECALCIFEROL) TABLET PO SCH (07:38)
[2017-10-24] MEDS: oxyCODONE/APAP 5/325MG (PERCOCET 5) TABLET PO PRN ×2 (07:39→20:22)
[2017-10-24] MEDS: MUPIROCIN 2% OINT 22 GM (BACTROBAN) TUBE TOP SCH ×2 (07:39→20:28)
[2017-10-24] MEDS: NYSTATIN CREAM (MYCOSTATIN) 30 GM TUBE TP SCH ×3 (07:41→20:28)
[2017-10-24] MEDS: DOCUSATE SODIUM 100 MG (COLACE) CAP PO SCH ×2 (07:41→20:23)
[2017-10-24] MEDS: FLUTICASONE NASAL SPRAY (FLONASE) 16 GM BTL NS SCH ×2 (07:42→20:23)
[2017-10-24 08:00] VITALS: BP 153/69
--- NOTE | 2017-10-24 10:18 | Progress Note-Hospitalist ---
Subjective HPI/CC On Admission Date Seen by Provider: Oct 24, 2017 Time Seen by Provider: 10:12 Patient is a 72-year-old white female sent from Dr. Burns's office as a direct admission. She had gone there as a result of swelling and pain in the right index finger. There was some abnormality yesterday but much more so today and there was Considerable pain as well. There was erythema which extended up the volar surface of the forearm and medial surface of the upper arm with erythema also spilling over to the upper outer quadrant of the right breast. She was not clear that there had been any injury or puncture of the finger. Curiously her was just discharged from this floor yesterday after a cellulitis of the left hand beginning with a power drill accident. She also reports pain at the buttocks which is been present for several days. She says that she has previously had an abscess in this area. She also has a considerable arthritic involvement of the IP joints of both hands. Subjective/Events-last exam Pt reports doing well with no other complaints. Ready for OR today. Objective Exam Vital Signs Vital Signs Date Time Temp Pulse Resp B/P (MAP) Pulse Ox O2 Delivery O2 Flow Rate FiO2 10/18/17 04:00 98.0 99 16 114/72 (86) 94 Room Air 10/20/17 22:15 4.00 Capillary Refill : Less Than 3 Seconds General Appearance: No Apparent Distress, WD/WN Respiratory: Lungs Clear, No Respiratory Distress Cardiovascular: Regular Rate, Rhythm, No Murmur Gastrointestinal: Normal Bowel Sounds, Non Tender, Soft Extremity: Other (right hand with wound vac in place) Neurologic/Psychiatric: Alert, Oriented x3, Normal Mood/Affect Results/Procedures Lab Laboratory Tests 10/24/17 06:00 Patient resulted labs reviewed. Assessment/Plan Assessment and Plan Assess & Plan/Chief Complaint Acute right hand cellulitis with lymphatic spread s/p ischemic changes and necrosis of the tip of the index finger s/p surgery Monday by hand surgeon Dr Nj but right index finger required amputation Monday night due to necrotizing fascitis Long-standing rheumatoid arthritis managed by Dr. Maguire rheumatology in [place] Chronic renal insufficiency managed by Dr. Newman in [place] h/o left breast cancer on Tamoxifen HTN Hypokalemia Plan: To OR today Continue Rocephin IV for 6 weeks of treatment due to the severity of the infection per hand surgeon Discussed access option with patient and all available routes (PICC, Port, IM ) and the risks involved with these procedures. She would prefer a PICC in her right arm and understands the risks involved. She discussed this with her family (including daughter who is an orthopedic hand surgeon) and again feels comfortable with this plan Pain control Hand Surgery consulted, appreciate recs Cardiology evaluation for PAF is appreciated Continue potassium Nebs IS Ambulate Collagen graft placement then DC Monday and needs Patient to inquire with her Oncologist Dr Elizalde at [facility] if chemotherapy pill can be DC'ed and with Rheumatology about her medications as well Plan for DC tomorrow with Clinical Quality Measures DVT/VTE Risk/Contraindication: Risk Factor Score Per Nursin RFS Level Per Nursing on Admit: 3=High Copy Copies To 1: JAMARI BURNS MD, KATELYN M MD Oct 24, 2017 10:18 am
[2017-10-24] MEDS ORDERED: POTA10TA6 PO (10:23)
[2017-10-24] MEDS ORDERED: OXYC-471 PO (10:23)
[2017-10-24] MEDS ORDERED: CFTR1PB IV (10:30)
[2017-10-24 12:00] VITALS: BP 175/72
--- NOTE | 2017-10-24 13:45 | Occupational Ther Daily Note ---
OT Current Status-Daily Note Subjective Pt alert, lying in bed. Pt agreed to therapy. No c/o pain. Nrsg stated that she will go to procedure around 1500. Mental Status/Objective Patient Orientation: Person, Place, Time, Situation Functional [place] Measure 0=Not Assessed/NA 4=Minimal Assistance 1=Total Assistance 5=Supervision or Setup 2=Maximal Assistance 6=Modified [place] 3=Moderate Assistance 7=Complete [place] Other Treatment Pt was educated on AROM with jt blocking for R 3-5 digits. Pt demonstrated understanding of exercises verbally and physical by blocking PIP and MP joints. 10x's each joint. Pt then instructed for wrist flex/ext, uln/rad deviation and rotation, tolerated well. Discussed keeping joints mobile throughout to keep good AROM. After therapy, pt lying in bed with call light/phone in reach. All needs met in room. Education OT Patient Education: Exercise program, Home exercise program, Instructions to caregiver Teaching Recipient: Patient, Family Teaching Methods: Demonstration, Discussion Response to Teaching: Verbalize Understanding, Return Demonstration OT Short Term Goals Short Term Goals 1=Demonstrate adherence to instructed precautions during ADL tasks. 2=Patient will verbalize/demonstrate understanding of assistive devices/ modifications for ADL. 3=Patient will improve strength/tolerance for activity to enable patient to perform ADL's. OT Group Home Goals Group Home Goals Time Frame: Oct 30, 2017 Upper Body Dressing(FIM): 5 Lower Body Dressing(FIM): 5 Pt will be independent with right hand ROM exercises. Additional Goals: 1-Demonstrate ADL Tasks, 2-Verbalize Understanding, 3- ImproveStrength/Yg 1=Demonstrate adherence to instructed precautions during ADL tasks. 2=Patient will verbalize/demonstrate understanding of assistive devices/ modifications for ADL. 3=Patient will improve strength/tolerance for activity to enable patient to perform ADL's. OT Education/Plan Problem List/Assessment Pt admitted with right index finger cellulitis and is now s/p amputation. Pt to benefit from skilled OT for finger ROM per physician orders. Will monitor ADL completion and safety. Discharge Recommendations Plan/Recommendations: Continue POC Treatment Plan/Plan of Care Patient would benefit from OT for education, treatment and training to promote independence in ADL's, mobility, safety and/or upper extremity function for ADL' s. Plan of Care: ADL Retraining, UE Funct Exercise/Act Treatment Duration: Oct 30, 2017 Frequency: 5 times per week Estimated Hrs Per Day: .25 hour per day Agreement: Yes Rehab Potential: Good Time/GCodes Start Time: 13:00 Stop Time: 13:15 Total Time Billed (hr/min): 15 Billed Treatment Time 1 visit-EX 1 (15 min) IVETT STEELE Oct 24, 2017 13:45
[2017-10-24] MEDS ORDERED: DEXAMETHASONE 10 MG/ML (DECADRON) 1 ML VIAL ONE (14:18)
[2017-10-24] MEDS ORDERED: proPOfol 200 MG/20 ML (DIPRIVAN) VIAL IV ONE (14:18)
[2017-10-24] MEDS ORDERED: SEVOFLURANE (ULTANE) 15 ML INHAL SOLN ONE ×2 (14:18→17:37)
[2017-10-24] MEDS ORDERED: LIDOCAINE PF 2% 5 ML (XYLOCAINE) VIAL ONE (14:18)
[2017-10-24] MEDS ORDERED: ONDANSETRON 4 MG/2 ML (SDV) Z0FRAN ONE (14:18)
[2017-10-24] MEDS ORDERED: MIDAZOLAM 2 MG/2 ML (VERSED) VIAL ONE (14:19)
[2017-10-24] MEDS ORDERED: fentaNYL INJECTION 100 MCG/2 ML AMP ONE (14:19)
[2017-10-24] MEDS: cefTRIAXone INJECTION 1,000 MG in NS (IVPB) 100 ML IV SCH (15:08)
--- NOTE | 2017-10-24 15:16 | Diagnostic Imaging Report ---
INDICATION: PICC line placement. TIME OF EXAM: 02:50 p.m. No prior study is available for comparison. FINDINGS: Right upper extremity PICC line has been placed and appears to have the tip overlying the SVC. No pneumothorax is seen. There are bibasilar infiltrates/atelectasis and perhaps a small left effusion. IMPRESSION: Satisfactory PICC line placement, as described. Dictated by: Dictated on workstation # [id number]
[2017-10-24 16:00] VITALS: BP 175/73
[2017-10-24] MEDS ORDERED: MEPERIDINE (DEMEROL) INJ 50 MG/ML IVP PRN ×2 (16:00→17:30)
[2017-10-24] MEDS ORDERED: fentaNYL INJECTION 100 MCG/2 ML AMP IVP PRN ×2 (16:00→17:30)
[2017-10-24] MEDS ORDERED: morphine INJ 10 MG/ML 1ML (SYR OR VIAL) IVP PRN ×2 (16:00→17:30)
[2017-10-24] MEDS ORDERED: LACTATED RINGERS 1,000 ML IV PRN (17:25)
[2017-10-24] MEDS ORDERED: ONDANSETRON 4 MG/2 ML (SDV) Z0FRAN IVP PRN (17:30)
[2017-10-24] MEDS ORDERED: PHENYLEPHRINE 100 MCG/ML 10 ML (ANESTHESIA) SYR ONE (17:58)
[2017-10-24] MEDS ORDERED: HYDROmorphone 2 MG/ML VIAL (DILAUDID) IVP PRN (18:15)
[2017-10-24 19:06] VITALS: BP 171/77
--- NOTE | 2017-10-24 19:07 | OPERATIVE REPORT ---
DATE OF SERVICE: PREOPERATIVE DIAGNOSIS: Infected finger with necrosis, status post debridement with ray resection. POSTOPERATIVE DIAGNOSIS: Infected finger with necrosis, status post debridement with ray resection. PROCEDURE PERFORMED: Irrigation, debridement of the right hand with application of Integra measuring 2.5 cm x 2.5 cm and application of wound VAC. SURGEON: Arian Nj DO. MOULDER OPERATOR: , nurse practitioner. ANESTHESIA: General. BLOOD LOSS: Minimal. COMPLICATIONS: None. 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 We elected to do an aggressive debridement with ray resection, for which we did several days ago. We placed a wound VAC on at that time to monitor progression. Her white count reverted back to normal. The incision became near normal for her again. Therefore, we elected to go ahead and apply the Integra today. The risks and benefits of the surgery were described to the patient. She agrees to proceed. DESCRIPTION OF THE PROCEDURE: The patient was taken back to the operating room and placed on the operative table. A general anesthetic was given. At this point, the wound VAC was removed. She was prepped and draped in usual fashion. The overall quality of the tissue was very good. There was good healing tissue with no signs of infection. We carefully debrided the skin, subcutaneous tissue around the wound site. All of it was healthy and bleeding. We then applied my cutting Integra to fit the defect. We sewed in using 4-0 Prolene. We pie crusted and fenestrated the Integra to allow fluid to escape from the tissue or through the tissue. We then applied the wound VAC directly onto the area. The wound VAC had a good seal. At this point, we completed the surgery by placing a sterile dressing. The patient tolerated the procedure well with no complications, taken to recovery room in stable condition. Job ID: [id number] DocumentID: [id number] Dictated Date: 10/24/2017 18:01:24 Swimming Pool Serviceperson Date: 10/24/2017 19:07:24 Dictated By: ARIAN NJ DO
--- NOTE | 2017-10-24 19:27 | Anesthesia-General Post-Op ---
General Patient Condition Mental Status/LOC: Same as Preop Cardiovascular: Satisfactory Nausea/Vomiting: Absent Respiratory: Satisfactory Pain: Controlled Complications: Absent Post Op Complications Complications None Follow Up Care/Instructions Patient Instructions None needed. Anesthesia/Patient Condition Patient Condition Patient is doing well, no complaints, stable vital signs, no apparent adverse anesthesia problems. No complications reported per nursing. D/C home per [facility] [place]: No SILVA ROCA CRNA Oct 24, 2017 19:27
[2017-10-25 00:32] VITALS: BP 114/57
[2017-10-25] MEDS: KCL 10 MEQ TAB (MICRO K) PO SCH ×3 (06:03→13:03)
[2017-10-25] MEDS: SALSALATE 500 MG PO SCH (06:03)
[2017-10-25] MEDS: MULTIVIT W/MINERALS TAB (THERAGRAN M) PO SCH (06:03)
[2017-10-25] MEDS: PANTOPRAZOLE 20 MG TABLET (PROTONIX) PO SCH (06:03)
[2017-10-25 06:16] LABS: BASOPHILS % (AUTO) 0 % (0-10); EOSINOPHILS % (AUTO) 0 % (0-10); HEMATOCRIT 37 % (35-52); HEMOGLOBIN 12.4 G/DL (11.5-16.0); LYMPHOCYTES # (AUTO) 0.7 X 10^3 (1.0-4.0); LYMPHOCYTES % (AUTO) 9 % (12-44); MEAN CORPUSCULAR HEMOGLOBIN 33 PG (25-34); MEAN CORPUSCULAR HGB CONC 34 G/DL (32-36); MEAN CORPUSCULAR VOLUME 97 FL (80-99); MEAN PLATELET VOLUME 10.4 FL (7.4-10.4); MONOCYTES # (AUTO) 0.4 X 10^3 (0.0-1.0); MONOCYTES % (AUTO) 4 % (0-12); NEUTROPHILS # (AUTO) 6.9 X 10^3 (1.8-7.8); NEUTROPHILS % (AUTO) 87 % (42-75); PLATELET COUNT 428 10^3/uL (130-400); RED BLOOD COUNT 3.81 10^6/uL (4.35-5.85); RED CELL DISTRIBUTION WIDTH 14.9 % (10.0-14.5)
[2017-10-25 06:30] LABS: ANISOCYTOSIS SLIGHT; BAND NEUTROPHILS 0 %; BASOPHILS % (MANUAL) 0 %; EOSINOPHILS % (MANUAL) 0 %; LYMPHOCYTES % (MANUAL) 11 %; MONOCYTES % (MANUAL) 3 %; NEUTROPHILS % (MANUAL) 85 %; REACTIVE LYMPHOCYTES 1 %; TOXIC GRANULATION/VACUOLAZATIO 1+
[2017-10-25 06:48] LABS: CALCIUM 8.4 MG/DL (8.5-10.1); CREATININE SERUM 1.15 MG/DL (0.60-1.30); POTASSIUM 4.4 MMOL/L (3.6-5.0)
[2017-10-25] MEDS: RT-ALBUTEROL SULF 2.5 MG/3 ML PRE-MIX VIAL INH SCH (07:10)
[2017-10-25 07:45] VITALS: BP_SYST 177; BP_SYST 74; BP_DIAS 74
[2017-10-25] MEDS: VITAMIN E 400 INTLU CAP PO SCH (07:59)
[2017-10-25] MEDS: oxyCODONE/APAP 5/325MG (PERCOCET 5) TABLET PO PRN ×2 (07:59→11:53)
[2017-10-25] MEDS: amLODIPine 5 MG (NORVASC) TAB PO SCH (07:59)
[2017-10-25] MEDS: VITAMIN D3 1,000 UNITS (CHOLECALCIFEROL) TABLET PO SCH (07:59)
[2017-10-25] MEDS: LOSARTAN 50 MG (COZAAR) TAB PO SCH (07:59)
[2017-10-25] MEDS: meTOprolol TARTRATE 25 MG (LOPRESSOR) TABLET PO SCH (07:59)
[2017-10-25] MEDS: DOCUSATE SODIUM 100 MG (COLACE) CAP PO SCH (08:00)
[2017-10-25] MEDS: cefTRIAXone INJECTION 1,000 MG in NS (IVPB) 100 ML IV SCH (08:00)
[2017-10-25] MEDS: FLUTICASONE NASAL SPRAY (FLONASE) 16 GM BTL NS SCH (08:00)
[2017-10-25] MEDS: NYSTATIN CREAM (MYCOSTATIN) 30 GM TUBE TP SCH ×2 (08:03→13:03)
[2017-10-25] MEDS: MUPIROCIN 2% OINT 22 GM (BACTROBAN) TUBE TOP SCH (08:03)
--- NOTE | 2017-10-25 10:44 | D/C HH Face to Face Order ---
D/C Face to Face Orders Instructions for Patient Patient Instructions/FollowUp: Please follow up with Dr Burns in [address] Nj per his orders. Physician to follow Patient: Dr Burns Discharge Diet for Home: Cardiac Diet Patient Data-Allergies,Ht & Wt Patient Allergies: Coded Allergies: Codeine (Unverified Adverse Reaction, Mild, 04/03/11) Height (Feet): 5 Height (Inches): 3.00 Weight (Pounds): 122 Weight (Ounces): 0.0 Home Health Need/Face to Face Date of Face to Face: Oct 25, 2017 Clinical Findings: Wound infection I have seen Pt [id number]: Yes Discharged To: Home Diagnosis/Conditions: Flexor tenosynovitis Patient is Homebound due to: Pain w/ambulation Wound vac in place, dependent on another person for transport Homebound Status Due to the above stated illness, injury or surgical procedure (medical condition or diagnosis) and associated clinical findings, the patient is homebound because of his/her inability to leave home except with aid of a supportive device and/or person AND leaving the home requires a considerable and taxing effort or is medically contraindicated. Pt req the following assistanc: Aid of another person Home Health Nursing Orders Home Health Services Order: Nursing Services, Pinsetter Mechanic Helper-Evaluate & Treat, Wound Care-Eval/Treat Daily antibiotics, dressing changes Home Health Infusion Therapy Line Start Date: Oct 22, 2017 Line Start Time: 1530 Line Type: [place] Lock Site Location: Forearm Therapy Orders Therapy Orders: OT (must have SN or PT order) Therapy Specific Orders: Eval assistive deivces, Teach enviro modifications/ safety, Increase strength/endurance Certify Stmt I certify that this patient is under my care and that I, a nurse practitioner or a physician; a energy assistant working with me, had a face to face encounter that - meets the physician face to face encounter requirements with this patient as dated. IVETTE MONSIVAIS MD Oct 24, 2017 10:34
--- NOTE | 2017-10-25 10:46 | Discharge Summary-Hospitalist ---
Diagnosis/Chief Complaint Date of Admission Oct 17, 2017 at 12:40 Date of Discharge Discharge Date: Oct 25, 2017 Admission Diagnosis Cellulitis right index finger with lymphangitic spread up the right arm to the axilla. 2.second process in the gluteal crease. Discharge Diagnosis Acute right hand cellulitis with lymphatic spread s/p ischemic changes and necrosis of the tip of the index finger s/p surgery Monday by hand surgeon Dr Nj but right index finger required amputation Monday night due to necrotizing fascitis Long-standing rheumatoid arthritis managed by Dr. Maguire rheumatology in [place] Chronic renal insufficiency managed by Dr. Newman in [place] h/o left breast cancer on Tamoxifen HTN Hypokalemia (1) Necrotizing fasciitis Status: Acute (2) Amputation of finger Status: Acute (3) cellulitis Status: Acute (4) Gangrene of finger of right hand Status: Resolved (5) Hypertension Status: Chronic (6) Renal insufficiency Status: Chronic (7) HX: breast cancer Status: Chronic (8) Hypokalemia Status: Acute Discharge Summary Procedures/Consulations Dr Nj- Hand Surgery Dr Vasquez- Wound Care Discharge Physical Exam Allergies: Coded Allergies: Codeine (Unverified Adverse Reaction, Mild, 04/03/11) Vitals & I&Os Vital Signs Date Time Temp Pulse Resp B/P (MAP) Pulse Ox O2 Delivery O2 Flow Rate FiO2 10/25/17 09:52 Room Air 10/25/17 07:45 99.1 101 22 177/74 (108) 97 10/24/17 19:01 2.00 General Appearance: Alert, Oriented X3 Respiratory: Clear to Auscultation Cardiovascular: Regular Rate Neuro: Normal Speech Psych/Mental Status: Mental Status NL Hospital Course Pt is a 72yoCF was admitted for right hand flexor tenosynovitis with lymphangitic spread up to her right axilla and breast. She was monitor and hand surgery was consulted for evaluation. On 10/20 her symptoms worsened and she was taken to the OR for concerns of necrotizing fasciitis. She underwent right index finger amputation with wound vac placement. She returned to the OR on for further debridement. She had a PICC line placed so that she could continue IV abx for the next 6 weeks. She is to follow up with her PCP and Dr Nj. Home health was arranged to help facilitate her transition to home. Labs (last 24 hrs) Laboratory Tests 10/25/17 05:56: White Blood Count 8.0, Red Blood Count 3.81L, Hemoglobin 12.4, Hematocrit 37, Mean Corpuscular Volume 97, Mean Corpuscular Hemoglobin 33, Mean Corpuscular Hemoglobin Concent 34, Red Cell Distribution Width 14.9H, Platelet Count 428H, Mean Platelet Volume 10.4, Neutrophils (%) (Auto) 87H, Lymphocytes (%) (Auto) 9L , Monocytes (%) (Auto) 4, Eosinophils (%) (Auto) 0, Basophils (%) (Auto) 0, Neutrophils # (Auto) 6.9, Lymphocytes # (Auto) 0.7L, Monocytes # (Auto) 0.4, Eosinophils # (Auto) 0.0, Basophils # (Auto) 0.0, Neutrophils % (Manual) 85, Lymphocytes % (Manual) 11, Monocytes % (Manual) 3, Eosinophils % (Manual) 0, Basophils % (Manual) 0, Band Neutrophils 0, Reactive Lymphocytes 1, Toxic Granulation 1+, Anisocytosis SLIGHT, Sodium Level 140, Potassium Level 4.4, Chloride Level 109H, Carbon Dioxide Level 21, Anion Gap 10, Blood Urea Nitrogen 13, Creatinine 1.15, Estimat Glomerular Filtration Rate 46, BUN/Creatinine Ratio 11, Glucose Level 104, Calcium Level 8.4L Microbiology 10/18/17 MRSA Screen - Final, Complete MRSA not isolated 10/18/17 Acid Fast Bacilli Culture (Ref Lab - Preliminary, Resulted Patient resulted labs reviewed. Pending Labs Laboratory Tests 10/25/17 05:56: White Blood Count 8.0, Red Blood Count 3.81, Hemoglobin 12.4, Hematocrit 37, Mean Corpuscular Volume 97, Mean Corpuscular Hemoglobin 33, Mean Corpuscular Hemoglobin Concent 34, Red Cell Distribution Width 14.9, Platelet Count 428, Mean Platelet Volume 10.4, Neutrophils (%) (Auto) 87, Lymphocytes (%) (Auto) 9, Monocytes (%) (Auto) 4, Eosinophils (%) (Auto) 0, Basophils (%) (Auto) 0, Neutrophils # (Auto) 6.9, Lymphocytes # (Auto) 0.7, Monocytes # (Auto) 0.4, Eosinophils # (Auto) 0.0, Basophils # (Auto) 0.0, Neutrophils % (Manual) 85, Lymphocytes % (Manual) 11, Monocytes % (Manual) 3, Eosinophils % (Manual) 0, Basophils % (Manual) 0, Band Neutrophils 0, Reactive Lymphocytes 1, Toxic Granulation 1+, Anisocytosis SLIGHT, Sodium Level 140, Potassium Level 4.4, Chloride Level 109, Carbon Dioxide Level 21, Anion Gap 10, Blood Urea Nitrogen 13, Creatinine 1.15, Estimat Glomerular Filtration Rate 46, BUN/Creatinine Ratio 11, Glucose Level 104, Calcium Level 8.4 Discussion & Recommendations Discharge Planning: >30 minutes discharge planning Discharge Home Medications: Active Scripts Active Ceftriaxone (Ceftriaxone Sod) 1 Gm/Vial Soln 1 Gm IV DAILY Klor-Con 10 (Potassium Chloride) 10 Meq Tablet.er 10 Meq PO 5XD Oxycodone-Acetaminophen 5-325 (Oxycodone HCl/Acetaminophen) 1 Each Tablet 1-2 Tab PO Q4H PRN Reported Metoprolol Tartrate 50 Mg Tablet 25 Mg PO BID TAKES 1/2 OF A (50 MG) TABLET / LAST FILLED 03/23/17 #180 Nexium 24Hr (Esomeprazole Magnesium) 20 Mg Capsule.dr 20 Mg PO DAILY Vitamin D (Cholecalciferol (Vitamin D3)) 2,000 Unit Capsule 2,000 Unit PO DAILY Gelatin 600 Mg Capsule 600 Mg PO BID Glucosamine Chondroitin Tab (Gluc Iqbal/Chondro Iqbal A/Vit C/Mn) 1 Each Tablet 1 Tab PO BID Lecithin (Lecithin, Soy) 400 Mg Capsule 400 Mg PO DAILY Docusate Sodium 100 Mg Capsule 100 Mg PO DAILY PRN Biotin 1,000 Mcg Tablet 1,000 Mcg PO DAILY Vitamin B Complex 1 Each Capsule 1 Cap PO DAILY Centrum Silver Tablet (Multivit-Min/FA/Lycopene/Lut) 1 Each Tablet 1 Tab PO DAILY Fluticasone Propionate 16 Gm [place].susp 1 [place] NSEACH BID Claritin-D 24 Hour Tablet (Loratadine/Pseudoephedrine) 1 Each Tab.er.24h 1 Tab PO DAILY Acyclovir 400 Mg Tablet 400 Mg PO TID PRN Tamoxifen Citrate 10 Mg Tablet 20 Mg PO DAILY TAKES 2 (10 MG) TABLETS Losartan Potassium 50 Mg Tablet 50 Mg PO DAILY Salsalate 750 Mg Tablet 1,500 Mg PO BID l-Lysine (Lysine HCl) 500 Mg Tablet 1,000 Mg PO BID TAKES 2 (500 MG) TABLETS Vitamin E (Vitamin E Acetate) 400 Unit Capsule 400 Unit PO DAILY Aspirin EC (Aspirin) 81 Mg Tablet.dr 81 Mg PO DAILY Instructions to patient/family Please see electronic discharge instructions given to patient. Clinical Quality Measures DVT/VTE Risk/Contraindication: Risk Factor Score Per Nursin RFS Level Per Nursing on Admit: 3=High Problem Qualifiers (1) Amputation of finger: Encounter type: initial encounter Qualified Codes: S68.119A - Complete traumatic metacarpophalangeal amputation of unspecified finger, initial encounter (2) Hypertension: Hypertension type: essential hypertension Qualified Codes: I10 - Essential ( primary) hypertension IVETTE MONSIVAIS MD Oct 25, 2017 10:46 am
--- NOTE | 2017-10-25 12:45 | Occupational Ther Daily Note ---
OT Current Status-Daily Note Subjective Pt alert, lying in bed. Wound care nurse in room adjusting wound vac and visitor present. Pt agreed to therapy. C/o pain, rated 7/10, nrsg gave pain meds. Mental Status/Objective Patient Orientation: Person, Place, Time, Situation Functional [place] Measure 0=Not Assessed/NA 4=Minimal Assistance 1=Total Assistance 5=Supervision or Setup 2=Maximal Assistance 6=Modified [place] 3=Moderate Assistance 7=Complete [place] Other Treatment Pt to discharge today with OT. Reviewed jt blocking exercises and gave HEP. Pt demonstrated understanding of exercises. After therapy, pt lying in bed eating lunch. Call light/phone in reach. All needs met in room. OT Short Term Goals Short Term Goals 1=Demonstrate adherence to instructed precautions during ADL tasks. 2=Patient will verbalize/demonstrate understanding of assistive devices/ modifications for ADL. 3=Patient will improve strength/tolerance for activity to enable patient to perform ADL's. OT Correction Goals Group Social Worker Goals Time Frame: Oct 30, 2017 Upper Body Dressing(FIM): 5 Lower Body Dressing(FIM): 5 Pt will be independent with right hand ROM exercises. Additional Goals: 1-Demonstrate ADL Tasks, 2-Verbalize Understanding, 3- ImproveStrength/Yg 1=Demonstrate adherence to instructed precautions during ADL tasks. 2=Patient will verbalize/demonstrate understanding of assistive devices/ modifications for ADL. 3=Patient will improve strength/tolerance for activity to enable patient to perform ADL's. OT Education/Plan Problem List/Assessment Pt admitted with right index finger cellulitis and is now s/p amputation. Pt to benefit from skilled OT for finger ROM per physician orders. Will monitor ADL completion and safety. Discharge Recommendations Plan/Recommendations: Discharge/Goals Met Treatment Plan/Plan of Care Patient would benefit from OT for education, treatment and training to promote independence in ADL's, mobility, safety and/or upper extremity function for ADL' s. Plan of Care: ADL Retraining, UE Funct Exercise/Act Treatment Duration: Oct 30, 2017 Frequency: 5 times per week Estimated Hrs Per Day: .25 hour per day Agreement: Yes Rehab Potential: Good Time/GCodes Start Time: 11:40 Stop Time: 11:50 Total Time Billed (hr/min): 10 Billed Treatment Time 1 visit-EX 1 (10 min) IVETT STEELE Oct 25, 2017 12:45
--- NOTE | 2017-11-23 11:06 | OPERATIVE REPORT ---
DATE OF SERVICE: 10/20/2017 PREOPERATIVE DIAGNOSIS: Flexor tenosynovitis with necrosis overlying skin. POSTOPERATIVE DIAGNOSIS: Flexor tenosynovitis with necrosis overlying skin. PROCEDURE PERFORMED: Ray resection of the right index finger with debridement of necrotic skin, soft tissue, muscle and tendon and application of wound VAC. ANESTHESIA: General. BLOOD LOSS: Minimal. COMPLICATIONS: None. 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 The concern of necrotizing fasciitis developing was primary importance. After seeing this, we elected to get her taken care of in the operating room. After discussing the options, we are decided to treat this very aggressively with an amputation and resection of necrotic tissue. The risks and benefits of the surgery were discussed with the patient, she agrees to proceed. DESCRIPTION OF PROCEDURE: The patient was taken back to the operating room and placed on the operative table. General anesthetic was given. She was prepped and draped in the usual sterile fashion. [place] was used to exsanguinate the extremity. The tourniquet was inflated. We made a V-shaped cut on the dorsal and volar aspects of the right index finger. Sharp dissection was carried down through the skin and subcutaneous tissue on the volar side. The digital arteries and nerves were tracked out to the proximal interphalangeal joint where they were transected and cauterized. These were dissected out completely back to the just proximal to the A1 jimena. They were protected throughout the case. The flexor tendons were then transected at the base of the incision on the dorsal aspect. A V-shaped incision over the first metacarpal was made. The extensor tendon was transected proximally. The periosteum was elevated over the first metacarpal. A saw was used to cut the base of the index finger metacarpal. The periosteal sleeve was elevated and the bone was cut away from the periosteal sleeve given this a complete amputation of necrotic finger. We then took the neurovascular bundles and placed them into the periosteal sleeve and sewed the shut using 3-0 Vicryl. At this point, the skin flaps were carefully examined. There was a significant amount of necrosis on both sides of the skin flaps. These were resected back to healthy tissue on all sides. At this point, the wounds were copiously irrigated after the resection. The wound VAC was placed. The tourniquet was deflated. Sterile dressings applied to everything. There was minimal to no bleeding. All fingers were vascularly intact. The patient was transferred to recovery room in stable condition. Job ID: [id number] DocumentID: [id number] Dictated Date: 10/20/2017 21:36:43 Panel Assembler Date: 10/21/2017 00:07:25 Dictated By: ARIAN GOTTI DO <Dictated by ARIAN GOTTI DO> <Electronically signed by ARIAN GOTTI DO> 10/23/17 1229
== END 2017-10-25 13:15 | disposition home health service (06) | DRG 513 ==
LOC: 4TH 12:40
PROVIDERS: ADMIT Internal Medicine; ATTEND Internal Medicine
PROC: 0L970ZZ Drainage of Right Hand Tendon, Open Approach (ICD-10-PCS; 2017-10-18)
PROC: 0X6N0Z0 Detachment at Right Index Finger, Complete, Open Approach (ICD-10-PCS; principal; 2017-10-20 19:38)
PROC: 0JR Subcutaneous Tissue and Fascia, Replacement (ICD-10-PCS; 2017-10-24)
DX: M65.141 Other infective (teno)synovitis, right hand (principal); M72.6 Necrotizing fasciitis; I96 Gangrene, not elsewhere classified; L03.011 Cellulitis of right finger; L03.113 Cellulitis of right upper limb; L03.111 Cellulitis of right axilla; M06.9 Rheumatoid arthritis, unspecified; I12.9 Hypertensive chronic kidney disease with stage 1 through stage 4 chronic kidney disease, or unspecified chronic kidney disease; N18.9 Chronic kidney disease, unspecified; R06.02 Shortness of breath; B36.9 Superficial mycosis, unspecified; R32 Unspecified urinary incontinence; E87.6 Hypokalemia; J30.2 Other seasonal allergic rhinitis; R05 Cough; B95.1 Streptococcus, group B, as the cause of diseases classified elsewhere; C50.912 Malignant neoplasm of unspecified site of left female breast; Z79.810 Long term (current) use of selective estrogen receptor modulators (SERMs)
CPT/HCPCS: 36415; 36569; 71045; 76937; 80048; 80053; 80202; 81000; 83605; 83735; 85007; 85025; 85027; 85652; 87070; 87075; 87077; 87081; 87101; 87116; 87205; 88305; 93005; 93306; 94640; 94664; 94760

== ENCOUNTER → 2017-11-03 | Outpatient (CLI) | payer OTHER, MEDICARE ==
[~2017-11-03] MED LIST changes: +ACYC400T PO; +ASPI-983 PO; +CFTR1PB IV; +CHOL2000 PO; +DOCU100C37 PO; +ESOM20CA58 PO; +FLUT16SP22 NSEACH; +FURO20TA4 PO; +GELA600C5 PO; +GLUC1TAB20 PO; +LECI400C PO; +LORA-877 PO; +LOSA50TA36 PO; +LYSI500T37 PO; +METO50TA15 PO; +MULT-1029 PO; +NFBIOT1000 PO; +OXYC-471 PO; +POTA10TA6 PO; +TAMO10TA PO; +VITA1CAP PO; +VITA400C60 PO
[2017-11-03 12:08] LABS: BASOPHILS # (AUTO) 0.1 10^3/uL (0.0-0.1); BASOPHILS % (AUTO) 1 % (0-10); EOSINOPHILS # (AUTO) 0.3 10^3/uL (0.0-0.3); EOSINOPHILS % (AUTO) 5 % (0-10); HEMATOCRIT 35 % (35-52); HEMOGLOBIN 11.6 G/DL (11.5-16.0); LYMPHOCYTES # (AUTO) 0.9 X 10^3 (1.0-4.0); LYMPHOCYTES % (AUTO) 17 % (12-44); MEAN CORPUSCULAR HEMOGLOBIN 32 PG (25-34); MEAN CORPUSCULAR HGB CONC 33 G/DL (32-36); MEAN CORPUSCULAR VOLUME 98 FL (80-99); MEAN PLATELET VOLUME 11.9 FL (7.4-10.4); MONOCYTES # (AUTO) 0.8 X 10^3 (0.0-1.0); MONOCYTES % (AUTO) 16 % (0-12); NEUTROPHILS # (AUTO) 3.2 X 10^3 (1.8-7.8); NEUTROPHILS % (AUTO) 61 % (42-75); PLATELET COUNT 308 10^3/uL (130-400); RED CELL DISTRIBUTION WIDTH 14.3 % (10.0-14.5); WHITE BLOOD COUNT 5.2 10^3/uL (4.3-11.0)
== END ==
LOC: HH 08:00
PROVIDERS: ATTEND Family Medicine
DX: L03.113 Cellulitis of right upper limb (principal)
CPT/HCPCS: 85025

== ENCOUNTER → 2018-04-26 | Outpatient (CLI) | payer OTHER, MEDICARE ==
[~2018-04-26] MED LIST changes: -LOSA50TA36 PO; +LOSA50TA7 PO
--- NOTE | 2018-04-26 12:34 | Diagnostic Imaging Report ---
INDICATION: Disorder of bone. COMPARISON is made with prior DEXA study from 10/03/2013. Bone mineral analysis of the lumbar spine and both hips was performed. Bone mineral density of the lumbar spine is 1.367 with T score of 1.4. This compares with 1.348 and 1.2. Bone mineral density left femoral neck is 0.659 with T score -2.7. This compares with 0.787 and -1.8. Bone mineral density right femoral neck 0.628 with T score of -2.9. This compares with 0.740 and -2.1. IMPRESSION: Normal bone density of the lumbar spine with osteoporosis of bilateral femoral necks. Dictated by: Dictated on workstation # [id number]
== END ==
LOC: RAD 08:28
PROVIDERS: ATTEND Nurse Practitioner Family
DX: M81.0 Age-related osteoporosis without current pathological fracture (principal); M51.36 Other intervertebral disc degeneration, lumbar region
CPT/HCPCS: 77080

== ENCOUNTER → 2018-06-22 | Outpatient (CLI) | payer MEDICARE, OTHER ==
[~2018-06-22] MED LIST changes: +CATHETER FLUSH 10 ML SYR IV PRN
[2018-06-22 08:51] VITALS: BP 147/113
--- NOTE | 2018-06-25 13:32 | STRESS TEST ---
DATE OF SERVICE: 06/22/2018 RESTING AND POST EXERCISE TECHNETIUM-99M TETROFOSMIN SPECT CT IMAGING ORDERING PHYSICIAN: Faizan Burns MD. PRIMARY PHYSICIAN: Faizan Burns MD. CLINICAL DIAGNOSIS: Chest discomfort. Baseline images were carried out after injection of 10.34 mCi of technetium-99m Tetrofosmin. This was followed by exercise on a treadmill. The patient exhibited sinus rhythm at baseline. With exercise, heart rate response was normal. Blood pressure response to exercise was also normal to hypertensive. Isolated premature atrial contractions were seen throughout the study. There was no sustained ventricular or supraventricular tachycardia. There was no significant ST segment deviation. Exercise was stopped on account of fatigue. 31.7 mCi of technetium-99m Tetrofosmin were injected at the peak exercise and the exercise was continued for another minute. Review of images at rest and following stress does not indicate any significant perfusion defects consistent with significant myocardial ischemia or infarction. Gated images show normal global left ventricular systolic function with normal regional wall motion. Left ventricular ejection fraction is calculated to be 79%. Left ventricular end-diastolic volume is 28 mL. CONCLUSIONS: 1. No evidence of significant myocardial ischemia or infarction of the study. 2. Normal regional wall motion. 3. Normal to hyperdynamic left ventricular systolic function with a calculated ejection fraction 79%. Job ID: [id number] DocumentID: [id number] Dictated Date: 06/25/2018 13:13:55 [employer] Guidance Counselor Date: 06/25/2018 13:31:33 Dictated By: RAYMOND CLOUD MD, MA, FACP, FACC,
== END ==
LOC: CARD 07:21
PROVIDERS: ATTEND Family Medicine
DX: R07.9 Chest pain, unspecified (principal)
CPT/HCPCS: 78452; 93017

== ENCOUNTER 2018-11-16 11:08 | Outpatient (RCR) | payer MEDICARE, OTHER ==
[~2018-11-16 11:08] MED LIST changes: -CATHETER FLUSH 10 ML SYR IV PRN; +LOSA50TA63 PO; -LOSA50TA7 PO
== END 2018-11-18 | disposition home or self-care (01) ==
PROVIDERS: ATTEND Orthopaedic Surgery Orthopaedic Surgery of the Spine
DX: M54.16 Radiculopathy, lumbar region (principal)

== ENCOUNTER 2019-02-11 14:57 | Outpatient (RCR) | payer MEDICARE | END 2019-02-17 | disposition home or self-care (01) | PROVIDERS: ATTEND Orthopaedic Surgery Orthopaedic Surgery of the Spine | DX: M54.16 Radiculopathy, lumbar region (principal) ==

== ENCOUNTER 2019-05-15 08:57 | Outpatient (RCR) | payer MEDICARE | END 2019-05-19 | disposition still patient (30) | PROVIDERS: ATTEND Orthopaedic Surgery Orthopaedic Surgery of the Spine | DX: M54.16 Radiculopathy, lumbar region (principal) ==

== ENCOUNTER 2019-08-13 15:45 | Outpatient (RCR) | payer MEDICARE | END 2019-08-22 | disposition home or self-care (01) | PROVIDERS: ATTEND Orthopaedic Surgery Orthopaedic Surgery of the Spine | DX: M54.16 Radiculopathy, lumbar region (principal) ==

== ENCOUNTER 2019-11-28 14:08 | Outpatient (RCR) | payer MEDICARE ==
[~2019-11-28 14:08] MED LIST changes: -TAMO10TA PO; +TAMO10TA10 PO
== END 2019-12-01 | disposition home or self-care (01) ==
PROVIDERS: ATTEND Orthopaedic Surgery Orthopaedic Surgery of the Spine
DX: M54.16 Radiculopathy, lumbar region (principal)

== ENCOUNTER 2020-02-25 14:17 | Outpatient (RCR) | payer MEDICARE | END 2020-03-02 | disposition home or self-care (01) | PROVIDERS: ATTEND Orthopaedic Surgery Orthopaedic Surgery of the Spine | DX: M54.16 Radiculopathy, lumbar region (principal) ==

== ENCOUNTER → 2020-04-28 | Outpatient (CLI) | payer MEDICARE ==
[~2020-04-28] MED LIST changes: +ASPI-1238 PO; -ASPI-983 PO
--- NOTE | 2020-04-28 09:55 | Diagnostic Imaging Report ---
INDICATION: Postmenopausal COMPARISON: 04/26/1980 FINDINGS: The bone density of hips and spine was measured. This exam was compared to the prior exam of 04/26/2019. The total T score for the spine is 1.8. On the prior exam the T score is 1.4. The total T score for the left hip is -3.3. Right hip -3.4. On the prior exam, the respective T-scores of -3.4 and -3.2. The T score for the left femoral neck is -2.9 and for the right femoral neck -2.9. On the prior exam the respective T-scores of -2.7and -2.9. AP Spine L1-L4: [BMD (g/cm2): 1.416] [T-Score: 1.8] [Z-Score: 4.0] [BMD Previous: 1.367] [BMD % Change: 3.6] LT Hip Neck: [BMD (g/cm2): 0.637] [T-Score: -2.9] [Z-Score: -0.6] LT Hip Total: [BMD (g/cm2):0.586] [T-Score:-3.3] [Z-Score: -1.3] [BMD Previous: 0.573] [BMD % Change: 2.3] RT Hip Neck: [BMD (g/cm2):0.635] [T-Score:-2.9] [Z-Score:-0.7] RT Hip Total: [BMD (g/cm2):0.580] [T-score:-3.4] [Z-Score:-1.3] [BMD Previous:0.601] [BMD % Change:-3.5] *Indicates significant change from prior examination based on 95% confidence level. World Health Organization criteria for BMD interpretation classify patients as Normal (T-score at or above -1.0), Osteopenic (T-score between -1.0 and -2.5) or Osteoporotic (T-score at or below -2.5). LIMITATIONS AND MODIFICATION: None. FRACTURE RISK (FRAX SCORE): The ten year probability of (%): Major Osteoporotic Fracture: [18.6] Hip Fracture: [7.4] IMPRESSION: 1. The bone marrow density of the spine has increased somewhat since the prior exam and remains well within normal limits. 2. The bone mineral density of the hips and femoral necks has not changed significant. The T score values still fall within the range of osteoporosis. 3. See below National Osteoporosis Foundation guidelines on when to potentially initiate pharmacologic therapy. Based on the National Osteoporosis Foundation Guidelines, pharmacologic treatment should be initiated in any of the following, unless clinical conditions suggest otherwise: * Any patient with prior fragility fracture of the hip or vertebrae. A spine fracture indicates 5X risk for subsequent spine fracture and 2X risk for subsequent hip fracture. * Osteoporosis (T-score <-2.5). * Postmenopausal women and men age 50 and older with low bone mass/osteopenia (T-score between -1.0 and -2.5) by DXA and 10-year major osteoporotic fracture greater than 20% or a 10-year probability of hip fracture greater than 3%. These fracture risks are supplied above in the FRAX score, if applicable. * Clinician judgement and/or patient preferences may indicate treatment for people with 10-year fracture probabilities above or below these levels. Dictated by: Dictated on workstation # [id number]
== END ==
LOC: RAD 09:00
PROVIDERS: ATTEND Internal Medicine Rheumatology
DX: M81.0 Age-related osteoporosis without current pathological fracture (principal)
CPT/HCPCS: 77080

== ENCOUNTER 2020-05-20 13:00 | Outpatient (RCR) | payer MEDICARE | END 2020-06-02 | disposition home or self-care (01) | PROVIDERS: ATTEND Orthopaedic Surgery Orthopaedic Surgery of the Spine | DX: M54.16 Radiculopathy, lumbar region (principal); I10 Essential (primary) hypertension; K21.9 Gastro-esophageal reflux disease without esophagitis ==

== ENCOUNTER 2020-08-12 13:35 | Outpatient (RCR) | payer MEDICARE ==
[~2020-08-12 13:35] MED LIST changes: -OXYC-471 PO; +OXYC1TAB11 PO
== END 2020-08-24 07:00 | disposition home or self-care (01) ==
PROVIDERS: ATTEND Orthopaedic Surgery Orthopaedic Surgery of the Spine
DX: M54.16 Radiculopathy, lumbar region (principal); I10 Essential (primary) hypertension

== ENCOUNTER 2020-09-14 13:29 | Outpatient (RCR) | payer MEDICARE ==
[~2020-09-14 13:29] MED LIST changes: -ACYC400T PO; +ACYC400T21 PO
== END 2020-10-30 09:45 | disposition home or self-care (01) ==
PROVIDERS: ATTEND Orthopaedic Surgery
DX: M17.12 Unilateral primary osteoarthritis, left knee (principal); I10 Essential (primary) hypertension; Z96.652 Presence of left artificial knee joint

== ENCOUNTER 2020-09-15 12:56 | Outpatient (RCR) | payer MEDICARE ==
[~2020-09-15] VITALS: Ht 154.9 cm; Wt 51.4 kg
[2020-09-15 13:30] VITALS: BP 126/100
== END 2020-09-15 15:00 | disposition home or self-care (01) ==
LOC: SDC 12:56
PROVIDERS: ATTEND Orthopaedic Surgery
DX: T84.54XA Infection and inflammatory reaction due to internal left knee prosthesis, initial encounter (principal)
CPT/HCPCS: 36569; 76937; C1751

== ENCOUNTER 2020-10-11 01:39 | Emergency (ER) | payer MEDICARE ==
[~2020-10-11] VITALS: Ht 155 cm; Wt 52.0 kg
[~2020-10-11 01:39] MED LIST changes: +ACYC400T PO; -ACYC400T21 PO
--- NOTE | 2020-10-11 02:07 | ED General ---
General Stated Complaint: HIGH BLOOD PRESSURE 250/150 Source of Information: Patient History of Present Illness Date Seen by Provider: Oct 11, 2020 Time Seen by Provider: 01:50 Initial Comments PT ARRIVES VIA POV FROM HOME PT WITH MULTIPLE COMPLAINTS STATES HER BLOOD PRESSURE HAS BEEN "HIGH" FOR THE LAST 3 WEEKS AND JUST PRIOR TO ARRIVAL IT WAS 250/150, SO CAME TO ER PT HAS HAD 3 SURGERIES IN LAST 6 WEEKS--ALL AT [facility] HAD PICC LINE PLACED 08/18/20 THEN HAD LEFT KNEE REPLACEMENT FOR ARTHRITIS ON 08/20/20 HAD INFECTION IN LEG AFTER SURGERY--"BUT NOT IN JOINT" PER PT PT THEN FELL AND BROKE HER LEFT HIP, AND HAD SURGICAL REPAIR OF THAT APPROXIMATELY 2 WEEKS AGO--HAD TESFAYE REMOVED ON MONDAY PT WAS RELEASED TO HOME PT HAS CONTINUED TO GET IV ANTIBIOTICS VIA PICC LINE SINCE SURGERY PT WENT BACK TO [facility] ER ON 10/05/20 FOR ANEMIA ON OUTPATIENT TESTS, AND WAS FOUND TO HAVE ELEVATED WBC AT THAT TIME WELL, CEFUROXIME WAS ADDED AT THAT TIME PT DID HAVE A BLOOD TRANSFUSION AFTER HIP SURGERY PT STATES SHE HAS HAD BILATERAL LEG SWELLING SINCE SURGERY 2 DAYS AGO, SHE BEGAN TO HAVE LEFT ARM SWELLING PT TAKES LASIX ONCE A WEEK FOR CHRONIC LEG SWELLING, BUT HAS BEEN MUCH WORSE SINCE SURGERY STATES SHE HAS BEEN IN BED FOR THE LAST 6 WEEKS C/O SHORTNESS OF BREATH SINCE SURGERY, GETTING WORSE NO CHEST PAIN NO KNOWN FEVER PT STATES SHE WAS ON OXYCODONE FOR 4 WEEKS AFTER SURGERY, THEN SWITCHED TO TRAMADOL AND "EVERYTHING'S BEEN BAD SINCE THEN" ALL COVID TESTS HAVE BEEN NEGATIVE AND PT HAS RECEIVED BOTH COVID-19 VACCINATIONS PCP: DR. ARANA SURGEON: DR. TRAN Allergies and Home Medications Allergies Coded Allergies: codeine (Unverified Adverse Reaction, Mild, 04/03/11) Home Medications Acyclovir 400 Mg Tablet, 400 MG PO TID PRN for FEVER BLISTERS, (Reported) Aspirin 81 Mg Tablet.dr, 81 MG PO DAILY, (Reported) Biotin 1,000 Mcg Tablet, 1,000 MCG PO DAILY, (Reported) Ceftriaxone Sod 1 Gm/Vial Soln, 1 GM IV DAILY Prescribed by: IVETTE MONSIVAIS on 10/24/17 1030 Cholecalciferol (Vitamin D3) 2,000 Unit Capsule, 2,000 UNIT PO DAILY, (Reported) Docusate Sodium 100 Mg Capsule, 100 MG PO DAILY PRN for CONSTIPATION-1ST LINE, (Reported) Esomeprazole Magnesium 20 Mg Capsule.dr, 20 MG PO DAILY, (Reported) Fluticasone Propionate 16 Gm Bushnell.susp, 1 SPRAY NSEACH BID, (Reported) Gelatin 600 Mg Capsule, 600 MG PO BID, (Reported) Gluc Iqbal/Chondro Iqbal A/Vit C/Mn 1 Each Tablet, 1 TAB PO BID, (Reported) Lecithin, Soy 400 Mg Capsule, 400 MG PO DAILY, (Reported) Loratadine/Pseudoephedrine 1 Each Tab.er.24h, 1 TAB PO DAILY, (Reported) Losartan Potassium 50 Mg Tablet, 50 MG PO DAILY, (Reported) Lysine HCl 500 Mg Tablet, 1,000 MG PO BID, (Reported) TAKES 2 (500 MG) TABLETS Metoprolol Tartrate 50 Mg Tablet, 25 MG PO BID, (Reported) TAKES 1/2 OF A (50 MG) TABLET / LAST FILLED 03/23/17 #180 Multivit-Min/FA/Lycopene/Lut 1 Each Tablet, 1 TAB PO DAILY, (Reported) Oxycodone HCl/Acetaminophen 1 Each Tablet, 1-2 TAB PO Q4H PRN for PAIN-MODERATE Prescribed by: IVETTE MONSIVAIS on 10/24/17 1023 Potassium Chloride 10 Meq Tablet.er, 10 MEQ PO 5XD Prescribed by: IVETTE MONSIVAIS on 10/24/17 1023 Salsalate 750 Mg Tablet, 1,500 MG PO BID, (Reported) Tamoxifen Citrate 10 Mg Tablet, 20 MG PO DAILY, (Reported) TAKES 2 (10 MG) TABLETS Vitamin B Complex 1 Each Capsule, 1 CAP PO DAILY, (Reported) Vitamin E Acetate 400 Unit Capsule, 400 UNIT PO DAILY, (Reported) Patient Home Medication List Home Medication List Reviewed: Yes Review of Systems Review of Systems Constitutional: no symptoms reported; No fever Respiratory: see HPI; No cough; orthopnea, short of breath Cardiovascular: see HPI; No chest pain; edema; No palpitations, No syncope Gastrointestinal: no symptoms reported; No nausea, No vomiting Musculoskeletal: see HPI Skin: other (WOUND TO LEFT LOWER LEG) Psychiatric/Neurological: No Symptoms Reported Past Yfyxfns-Whmjls-Otmehu Hx Past Med/Social Hx: Reviewed and Corrections made Patient Social History Alcohol Use: Regular Use Smoking Status: Never a Smoker Recent Hopitalizations: No Immunizations Up To Date Date of Pneumonia Vaccine: Oct 17, 2014 Seasonal Allergies Seasonal Allergies: No Past Medical History Surgeries: Yes (lymph node removal left breast, csection x2) Amputation, Breast, Section, Joint Replacement, Orthopedic Respiratory: No Currently Using CPAP: No Currently Using BIPAP: No Cardiac: Yes Chronic Edema/Swelling, Hypertension Neurological: No Genitourinary: Yes (NO DIALYSIS) Renal Failure Gastrointestinal: Yes Chronic Constipation, Diverticulosis, Hemorrhoids Musculoskeletal: Yes (OSTEOARTHRITIS; CHRONIC BACK PAIN WITH LUMBAR RADICULOPATHY) Amputee, Arthritis, Chronic Back Pain, Fractures Endocrine: No HEENT: No 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 Did You Recieve Any Treatments: Yes What Type of Treatment Did You: Surgical Intervention Psychosocial: No Integumentary: Yes (CELLULITIS, NECROTIZING FASCITIS/GANGRENE; "FEVER BLISTERS" ) Herpes Blood Disorders: Yes (ANEMIA) Adverse Reaction/Blood Tranf: No Family Medical History SOCIAL HISTORY: -ETOH--STATES SHE HAS "1 DRINK" EVERY DAY--SCOTCH -DRUGS--DENIES USE -DENIES SMOKING PAST SURGICAL HISTORY: - -LEFT BREAST SURGERY WITH LYMPH NODE BIOPSIES/REMOVALS -COLONOSCOPY 01/2012--DIVERTICULAR DISEASE, HEMORRHOIDS -RIGHT HAND--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 0.0oz. [id number]; 21.6 BMI Method: General Appearance: No Apparent Distress, WD/WN Respiratory: Accessory Muscle Use, Decreased Breath Sounds, Rales (FAINT RALES IN BASES), Respiratory Distress (MILD TO MODERATE DYSPNEA) Cardiovascular: No Murmur, Extra Beats (C/W PAC'S ON MONITOR), Tachycardia Gastrointestinal: Non Tender, Soft Extremity: Other (MILD SWELLING TO LEFT ARM AND HAND. 2+ EDEMA TO RIGHT LEG; LEFT LEG WITH 3+ EDEMA. LEFT KNEE INCISION WELL HEALED, NO SIGNS OF INFECTION. 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 Norm as Tested Skin: Normal Color, Warm/Dry Progress/Results/Core Measures Suspected Sepsis SIRS Temperature: Pulse: Respiratory Rate: Laboratory Tests 10/11/20 02:04: White Blood Count 9.2 Blood Pressure / Mean: Laboratory Tests 10/11/20 02:04: Creatinine 0.83, INR Comment 1.1, Platelet Count 519H, Total Bilirubin 0.5 Results/Orders Lab Results Laboratory Tests Test 10/11/20 02:04 10/11/20 05:40 Range/Units White Blood Count 9.2 4.3-11.0 10^3/uL Red Blood Count 2.82 L 3.80-5.11 10^6/uL Hemoglobin 9.5 L 11.5-16.0 g/dL Hematocrit 29 L 35-52 % Mean Corpuscular Volume 104 H 80-99 fL Mean Corpuscular Hemoglobin 34 25-34 pg Mean Corpuscular Hemoglobin Concent 32 32-36 g/dL Red Cell Distribution Width 21.0 H 10.0-14.5 % Platelet Count 519 H 130-400 10^3/uL Mean Platelet Volume 9.3 9.0-12.2 fL Immature Granulocyte % (Auto) 1 % Neutrophils (%) (Auto) 73 42-75 % Lymphocytes (%) (Auto) 11 L 12-44 % Monocytes (%) (Auto) 8 0-12 % Eosinophils (%) (Auto) 7 0-10 % Basophils (%) (Auto) 1 0-10 % Neutrophils # (Auto) 6.7 1.8-7.8 10^3/uL Lymphocytes # (Auto) 1.0 1.0-4.0 10^3/uL Monocytes # (Auto) 0.8 0.0-1.0 10^3/uL Eosinophils # (Auto) 0.6 H 0.0-0.3 10^3/uL Basophils # (Auto) 0.1 0.0-0.1 10^3/uL Immature Granulocyte # (Auto) 0.1 0.0-0.1 10^3/uL Prothrombin Time 14.5 12.2-14.7 SEC INR Comment 1.1 0.8-1.4 Activated Partial Thromboplast Time 51 H 24-35 SEC D-Dimer 3.33 H 0.00-0.49 UG/ML Sodium Level 137 135-145 MMOL/L Potassium Level 3.2 L 3.6-5.0 MMOL/L Chloride Level 106 98-107 MMOL/L Carbon Dioxide Level 18 L 21-32 MMOL/L Anion Gap 13 5-14 MMOL/L Blood Urea Nitrogen 7 7-18 MG/DL Creatinine 0.83 0.60-1.30 MG/DL Estimat Glomerular Filtration Rate > 60 BUN/Creatinine Ratio 8 Glucose Level 123 H 70-105 MG/DL Calcium Level 8.3 L 8.5-10.1 MG/DL Corrected Calcium 9.3 8.5-10.1 MG/DL Magnesium Level 1.8 1.6-2.4 MG/DL Total Bilirubin 0.5 0.1-1.0 MG/DL Aspartate Amino Transf (AST/SGOT) 26 5-34 U/L Alanine Aminotransferase (ALT/SGPT) 12 0-55 U/L Alkaline Phosphatase 84 40-136 U/L Troponin I 0.031 H 0.030 H <0.028 NG/ML B-Type Natriuretic Peptide 874.4 H <100.0 PG/ML Total Protein 5.9 L 6.4-8.2 GM/DL Albumin 2.8 L 3.2-4.5 GM/DL TSH [place] Testing 1.57 0.35-4.94 UIU/ML My Orders Orders - ASTRID WARD DO Ed Iv/Invasive Line Start (10/11/20 01:48) Ekg Tracing (10/11/20 01:48) Monitor-Rhythm Ecg Trace Only (10/11/20 01:48) Chest 1 View, Ap/Pa Only (10/11/20 01:48) Cbc With Automated Diff (10/11/20 01:48) Comprehensive Metabolic Panel (10/11/20 01:48) Magnesium (10/11/20 01:48) Protime With Inr (10/11/20 01:48) Partial Thromboplastin Time (10/11/20 01:48) Thyroid Analyzer (10/11/20 01:48) BNP (10/11/20 02:05) Fibrin Degradation Products (10/11/20 02:05) Troponin I (10/11/20 02:05) Hydralazine Injection (Apresoline Inject (10/11/20 02:15) Ct Angio Chest W (10/11/20 02:37) Furosemide Injection (Lasix Injection) (10/11/20 02:45) Nitroglycerin Ointment (Nitrobid Ointme (10/11/20 02:45) Iohexol Injection (Omnipaque 350 Mg/Ml 1 (10/11/20 03:45) Ns (Ivpb) (Sodium Chloride 0.9% Ivpb Bag (10/11/20 03:45) Hydralazine Injection (Apresoline Inject (10/11/20 04:15) Fentanyl Inj (Sublimaze Injection) (10/11/20 04:30) Lorazepam Injection (Ativan Injection) (10/11/20 05:00) Ekg Tracing (10/11/20 04:53) Troponin I (10/11/20 05:32) Medications Given in ED Current Medications Medications Dose Ordered Sig/Shaila Route Start Time Stop Time Status Last Admin Dose Admin Lorazepam 0.25 mg ONCE ONCE IVP 10/11/20 08:00 10/11/20 08:01 DC 10/11/20 08:04 0.25 MG Vital Signs/I&O 10/11/20 10/11/20 10/11/20 01:48 02:00 08:55 Temp 36.6 Pulse 93 134 Resp 18 20 B/P (MAP) 208/124 (152) 175/90 Pulse Ox 96 96 91 O2 Delivery Room Air Nasal Cannula Nasal Cannula O2 Flow Rate 2.00 2.00 Capillary Refill : Progress Note : Progress Note O2 SAT 92% --UP TO 95% ON 2L/NC GIVEN HYDRALAZINE, LASIX AND NITROPASTE BP DOWN WITH MEDICATIONS, BUT REMAINS TACHYCARDIC IN 100-130'S GAVE FENTANYL FOR PAIN--LAST DOSE OF ORAL PAIN MEDICATION WAS DUE AT 0200 PT WITH SOME INCREASING ANXIETY--GAVE ATIVAN PT DID HAVE SOME BRIEF HYPOVENTILATION AND DROWSINESS, WITH BRIEF DROP IN O2 SATS--PLACED ON OXIMASK AND THEN TITRATED BACK DOWN TO NASAL CANULA AT 3L/NC AND PT MAINTAINED O2 SATS IN MID TO UPPER 90'S, BUT STILL WITH LABORED BREATHING 3 HOUR REPEAT TROPONIN AND EKG DONE AND ARE UNCHANGED MARKED DELAY IN OBTAINING CT RESULTS ECG Initial ECG Impression Date: Oct 11, 2020 Initial ECG Impression Time: 02:00 Initial ECG Rate: 100 Initial ECG Rhythm: S.Tach (WITH PAC'S. ) Initial ECG Impression: Nonspecific Changes EKG : EKG Time: 05:01 Rate: 112 Rhythm: S.Tach (WITH PAC'S) Diagnostic Imaging Comments CXR--INCREASED MARKINGS BILATERALLY, LLL INFILTRATE/MASS. PENDING RADIOLOGIST REVIEW CT CHEST ANGIOGRAM-- NO P.E., SEVERE BILATERAL PLEURAL EFFUSIONS, WITH CONSTRICTIVE ATELECTASIS, SMALL PERICARDIAL EFFUSION AND CARDIOMEGALY, MILD PULMONARY EDEMA--PER [facility] VIA FAX AT [phone] Reviewed: Reviewed by [place] Departure Communication (Admissions) 0550--CALLED [facility] TRANSFER LINE [phone]--SPOKE WITH DR. RAYMOND, SALES DEVELOPMENT REPRESENTATIVE, ACCEPTS PT FOR DIRECT ADMIT TO STEP DOWN UNIT. NO ADDITIONAL RECOMMENDATIONS AT THIS TIME Impression Primary Impression: Bilateral pleural effusion Additional Impressions: Hypoxia Hypertensive urgency CHF (congestive heart failure) Status post-operative repair of closed fracture of left hip Status post left knee replacement POST OP WOUND INFECTION Anemia SINUS TACHYCARDIA WITH MULTIPLE PAC'S Disposition: 02 XFER SHT-TRM HOSP Condition: Improved Transfer Transfer Reason: Exceeds level of care Transfer Facility: [facility] Method of Transfer: EMS Departure-Patient Inst. Referrals: DOUGLAS ARANA DO (PCP/Family) Primary Care Physician ASTRID WARD DO Oct 11, 2020 02:07
[2020-10-11 02:11] LABS: BASOPHILS # (AUTO) 0.1 10^3/uL (0.0-0.1); BASOPHILS % (AUTO) 1 % (0-10); EOSINOPHILS # (AUTO) 0.6 10^3/uL (0.0-0.3); EOSINOPHILS % (AUTO) 7 % (0-10); HEMATOCRIT 29 % (35-52); HEMOGLOBIN 9.5 g/dL (11.5-16.0); LYMPHOCYTES % (AUTO) 11 % (12-44); MEAN CORPUSCULAR HEMOGLOBIN 34 pg (25-34); MEAN CORPUSCULAR HGB CONC 32 g/dL (32-36); MEAN CORPUSCULAR VOLUME 104 fL (80-99); MEAN PLATELET VOLUME 9.3 fL (9.0-12.2); MONOCYTES # (AUTO) 0.8 10^3/uL (0.0-1.0); MONOCYTES % (AUTO) 8 % (0-12); NEUTROPHILS # (AUTO) 6.7 10^3/uL (1.8-7.8); NEUTROPHILS % (AUTO) 73 % (42-75); PLATELET COUNT 519 10^3/uL (130-400); WHITE BLOOD COUNT 9.2 10^3/uL (4.3-11.0)
[2020-10-11] MEDS ORDERED: hydrALAZINE (APESOLINE) 20 MG/ML VIAL IV ONE ×2 (02:15→04:15)
[2020-10-11 02:24] LABS: FIBRIN DEGRADATION PRODUCTS 3.33 UG/ML (0.00-0.49); INR 1.1 (0.8-1.4); PROTHROMBIN TIME PATIENT 14.5 SEC (12.2-14.7)
[2020-10-11 02:30] LABS: ALANINE AMINOTRANSFERASE 12 U/L (0-55); ALBUMIN 2.8 GM/DL (3.2-4.5); ALKALINE PHOSPHATASE 84 U/L (40-136); BILIRUBIN,TOTAL 0.5 MG/DL (0.1-1.0); BUN/CREATININE RATIO 8; CALCIUM 8.3 MG/DL (8.5-10.1); CARBON DIOXIDE 18 MMOL/L (21-32); CHLORIDE 106 MMOL/L (98-107); CREATININE SERUM 0.83 MG/DL (0.60-1.30); GFR ESTIMATED > 60; GLUCOSE 123 MG/DL (70-105); MAGNESIUM 1.8 MG/DL (1.6-2.4); POTASSIUM 3.2 MMOL/L (3.6-5.0); SODIUM 137 MMOL/L (135-145); TOTAL PROTEIN 5.9 GM/DL (6.4-8.2)
[2020-10-11] MEDS ORDERED: NITROGLYCERIN 2% OINT 1 GM UNIT DOSE PACKET TOP ONE (02:45)
[2020-10-11] MEDS ORDERED: FUROSEMIDE 40 MG/4 ML INJ (LASIX) IVP ONE (02:45)
[2020-10-11 02:50] LABS: TSH (THYROID ANALYZER) 1.57 UIU/ML (0.35-4.94)
[2020-10-11] MEDS ORDERED: IOHEXOL 350 MG/ML 100 ML (OMNIPAQUE 350) VIAL IV ONE (03:45)
[2020-10-11] MEDS ORDERED: NS 100 ML (IVPB) BAG IV ONE (03:45)
[2020-10-11] MEDS ORDERED: fentaNYL INJ 100 MCG/2 ML AMP IVP ONE (04:30)
[2020-10-11] MEDS ORDERED: LORazepam INJ 2 MG/ML (ATIVAN) VIAL IVP ONE ×2 (05:00→08:00)
[2020-10-11 08:55] VITALS: BP 175/90
--- NOTE | 2020-10-11 09:25 | Diagnostic Imaging Report ---
INDICATION: Left lung infiltrate EXAM: Portable chest at 2:27 AM There is infiltrate and effusion at the left lung base. Minimal atelectasis is present at the right lung base. Right upper extremity PICC line tip projects over the SVC. IMPRESSION: Bilateral basilar infiltrates and/or atelectasis greater on the left than on the right. There also appears to be a small left pleural effusion. Dictated by: Dictated on workstation # [id number]
--- NOTE | 2020-10-11 09:41 | Diagnostic Imaging Report ---
EXAMINATION: CT angiography of the chest. TECHNIQUE: Contrast enhanced thin section helical images were obtained through the chest with intravenous contrast timed for the optimal opacification of the arterial structures per CTA protocol. Post-processing, reconstructions and interpretation of angiographic images of the vessels was performed. 3D MIP reconstructions were performed and reviewed. All CT scans use one or more of the following dose optimizing techniques: automated exposure control, MA and/or KvP adjustment based on a patient size and exam type, or iterative reconstruction. HISTORY: Shortness of breath, elevated d-dimer COMPARISON: None available. FINDINGS: There is no pulmonary embolism. There is mild edema with septal line thickening and groundglass centrally. No pneumonia. There are moderate pleural effusions with overlying atelectasis. No pneumothorax. No suspicious nodules. There is no axillary or supraclavicular lymphadenopathy. Prominent mediastinal lymph nodes likely reactive to the pulmonary edema. Left ventricle left atrium are mildly dilated. There are mild coronary artery calcifications. No pericardial effusion. Aorta is normal in caliber. Limited views of the upper abdomen are unremarkable. There are no suspicious osseus lesions. IMPRESSION: 1. No pulmonary embolism. 2. Moderate pleural effusions and mild pulmonary edema. There is no significant disagreement with the preliminary report. Dictated by: Dictated on workstation # [id number]
== END 2020-10-11 08:55 | disposition short-term general hospital (02) ==
LOC: EDUNIT# 01:39 → ER 01:41
DX: I13.0 Hypertensive heart and chronic kidney disease with heart failure and stage 1 through stage 4 chronic kidney disease, or unspecified chronic kidney disease (principal); D63.1 Anemia in chronic kidney disease; N18.9 Chronic kidney disease, unspecified; I50.9 Heart failure, unspecified; T81.49XA Infection following a procedure, other surgical site, initial encounter; S72.92XD Unspecified fracture of left femur, subsequent encounter for closed fracture with routine healing; Z79.51 Long term (current) use of inhaled steroids; Z96.652 Presence of left artificial knee joint; Z85.3 Personal history of malignant neoplasm of breast; Z79.82 Long term (current) use of aspirin; K59.09 Other constipation; Z88.5 Allergy status to narcotic agent; Z79.2 Long term (current) use of antibiotics; Z79.899 Other long term (current) drug therapy
CPT/HCPCS: 36415; 71045; 71275; 80053; 83735; 83880; 84443; 84484; 85025; 85379; 85610; 85730; 93005; 93041

== ENCOUNTER 2020-10-29 09:56 | Outpatient (CLI) | payer MEDICARE ==
[2020-10-29 09:55] VITALS: BP 170/72
[~2020-10-29 09:56] MED LIST changes: -ACYC400T PO; +ACYC400T21 PO
== END 2020-10-29 10:25 | disposition home or self-care (01) ==
LOC: SDC 09:56
PROVIDERS: ATTEND Internal Medicine Infectious Disease
DX: Z45.2 Encounter for adjustment and management of vascular access device (principal)

== ENCOUNTER 2021-01-28 15:15 | Outpatient (RCR) | payer MEDICARE | END 2021-01-31 | disposition home or self-care (01) | PROVIDERS: ATTEND Orthopaedic Surgery | DX: S72.90XA Unspecified fracture of unspecified femur, initial encounter for closed fracture (principal); K21.9 Gastro-esophageal reflux disease without esophagitis; I10 Essential (primary) hypertension; M19.90 Unspecified osteoarthritis, unspecified site; M81.0 Age-related osteoporosis without current pathological fracture; W19.XXXA Unspecified fall, initial encounter; Z85.9 Personal history of malignant neoplasm, unspecified; Z96.652 Presence of left artificial knee joint ==

== ENCOUNTER 2021-04-30 11:36 | Outpatient (RCR) | payer MEDICARE | END 2021-05-02 | disposition home or self-care (01) | PROVIDERS: ATTEND Orthopaedic Surgery | DX: S72.90XD Unspecified fracture of unspecified femur, subsequent encounter for closed fracture with routine healing (principal); Z96.652 Presence of left artificial knee joint; W19.XXXA Unspecified fall, initial encounter; I10 Essential (primary) hypertension; K21.9 Gastro-esophageal reflux disease without esophagitis ==

== ENCOUNTER 2021-07-08 13:01 | Outpatient (RCR) | payer MEDICARE ==
[~2021-07-08 13:01] MED LIST changes: +POTA-160 PO; -POTA10TA6 PO
== END 2021-07-09 | disposition home or self-care (01) ==
PROVIDERS: ATTEND Orthopaedic Surgery
DX: S72.92XD Unspecified fracture of left femur, subsequent encounter for closed fracture with routine healing (principal); I10 Essential (primary) hypertension; Z96.652 Presence of left artificial knee joint; W19.XXXD Unspecified fall, subsequent encounter

== ENCOUNTER 2021-08-05 13:00 | Outpatient (RCR) | payer MEDICARE | END 2021-08-09 | disposition home or self-care (01) | PROVIDERS: ATTEND Orthopaedic Surgery | DX: S72.92XD Unspecified fracture of left femur, subsequent encounter for closed fracture with routine healing (principal); I10 Essential (primary) hypertension; K21.9 Gastro-esophageal reflux disease without esophagitis; X58.XXXD Exposure to other specified factors, subsequent encounter; Z96.652 Presence of left artificial knee joint ==

== ENCOUNTER → 2021-09-06 | Outpatient (RCR) | payer MEDICARE | END | disposition home or self-care (01) | PROVIDERS: ATTEND Orthopaedic Surgery | DX: S72.92XD Unspecified fracture of left femur, subsequent encounter for closed fracture with routine healing (principal); I10 Essential (primary) hypertension; K21.9 Gastro-esophageal reflux disease without esophagitis; Z96.652 Presence of left artificial knee joint; X58.XXXD Exposure to other specified factors, subsequent encounter ==

== ENCOUNTER → 2021-10-07 | Outpatient (RCR) | payer MEDICARE | END | disposition home or self-care (01) | PROVIDERS: ATTEND Orthopaedic Surgery | DX: S72.92XD Unspecified fracture of left femur, subsequent encounter for closed fracture with routine healing (principal); I10 Essential (primary) hypertension; K21.9 Gastro-esophageal reflux disease without esophagitis; Z96.652 Presence of left artificial knee joint; X58.XXXD Exposure to other specified factors, subsequent encounter ==

== ENCOUNTER 2021-10-21 13:03 | Outpatient (RCR) | payer MEDICARE | END 2021-11-03 13:45 | disposition home or self-care (01) | PROVIDERS: ATTEND Orthopaedic Surgery | DX: S72.92XD Unspecified fracture of left femur, subsequent encounter for closed fracture with routine healing (principal); I10 Essential (primary) hypertension; Z96.652 Presence of left artificial knee joint; W19.XXXD Unspecified fall, subsequent encounter ==

== ENCOUNTER 2021-11-04 11:04 | Outpatient (RCR) | payer MEDICARE | END 2021-11-06 | disposition home or self-care (01) | PROVIDERS: ATTEND Internal Medicine | DX: M17.11 Unilateral primary osteoarthritis, right knee (principal); M25.552 Pain in left hip; I10 Essential (primary) hypertension ==

== ENCOUNTER → 2021-12-07 | Outpatient (RCR) | payer MEDICARE | END | disposition home or self-care (01) | PROVIDERS: ATTEND Internal Medicine | DX: M17.11 Unilateral primary osteoarthritis, right knee (principal); M25.552 Pain in left hip; I10 Essential (primary) hypertension; M54.50 Low back pain, unspecified ==

== ENCOUNTER → 2022-01-06 | Outpatient (RCR) | payer MEDICARE ==
[~2022-01-06] MED LIST changes: -GLUC1TAB20 PO; +GLUC1TAB21 PO
== END | disposition home or self-care (01) ==
PROVIDERS: ATTEND Internal Medicine
DX: M17.11 Unilateral primary osteoarthritis, right knee (principal); M25.552 Pain in left hip; I10 Essential (primary) hypertension

== ENCOUNTER 2022-01-28 13:10 | Outpatient (RCR) | payer MEDICARE | END 2022-02-06 | disposition home or self-care (01) | PROVIDERS: ATTEND Internal Medicine | DX: M17.11 Unilateral primary osteoarthritis, right knee (principal); M25.552 Pain in left hip; I10 Essential (primary) hypertension; M54.50 Low back pain, unspecified ==

== ENCOUNTER → 2022-02-28 | Outpatient (CLI) | payer MEDICARE | LOC: CARD 09:30 | PROVIDERS: ATTEND Internal Medicine | DX: R00.2 Palpitations (principal) | CPT/HCPCS: 93225; 93226 ==

== ENCOUNTER 2022-03-07 14:56 | Outpatient (RCR) | payer MEDICARE | END 2022-03-09 | disposition home or self-care (01) | PROVIDERS: ATTEND Internal Medicine | DX: M17.11 Unilateral primary osteoarthritis, right knee (principal); M25.552 Pain in left hip; I10 Essential (primary) hypertension; M54.50 Low back pain, unspecified ==

== ENCOUNTER 2022-04-07 12:50 | Outpatient (RCR) | payer MEDICARE | END 2022-04-08 | disposition home or self-care (01) | PROVIDERS: ATTEND Internal Medicine | DX: M17.11 Unilateral primary osteoarthritis, right knee (principal); M25.552 Pain in left hip; M54.50 Low back pain, unspecified; I10 Essential (primary) hypertension ==

== ENCOUNTER 2022-05-04 12:59 | Outpatient (RCR) | payer MEDICARE | END 2022-05-09 | disposition home or self-care (01) | PROVIDERS: ATTEND Internal Medicine | DX: M17.11 Unilateral primary osteoarthritis, right knee (principal); M25.552 Pain in left hip; M54.50 Low back pain, unspecified; I10 Essential (primary) hypertension ==

== ENCOUNTER → 2022-06-08 | Outpatient (RCR) | payer MEDICARE | END | disposition home or self-care (01) | PROVIDERS: ATTEND Internal Medicine | DX: M17.11 Unilateral primary osteoarthritis, right knee (principal); M25.552 Pain in left hip; M54.50 Low back pain, unspecified; I10 Essential (primary) hypertension ==

== ENCOUNTER 2022-07-07 13:00 | Outpatient (RCR) | payer MEDICARE | END 2022-07-09 | disposition home or self-care (01) | PROVIDERS: ATTEND Internal Medicine | DX: M17.11 Unilateral primary osteoarthritis, right knee (principal); M25.552 Pain in left hip; M54.50 Low back pain, unspecified ==

== ENCOUNTER → 2022-07-19 | Outpatient (CLI) | payer MEDICARE ==
--- NOTE | 2022-07-19 14:57 | Diagnostic Imaging Report ---
INDICATION: Postmenopausal state COMPARISON: 04/28/2020 FINDINGS: AP Spine L1-L4: [BMD (g/cm2): 1.413] [T-Score: 1.8] [Z-Score: 4.0] [BMD Previous: 1.416] [BMD % Change: -0.2] LT Hip Neck: [BMD (g/cm2): na] [T-Score: na] [Z-Score: na] LT Hip Total: [BMD (g/cm2):na] [T-Score:na] [Z-Score: na] [BMD Previous: na] [BMD % Change: na] RT Hip Neck: [BMD (g/cm2):0.645] [T-Score:-2.8] [Z-Score:-0.5] RT Hip Total: [BMD (g/cm2):0.575] [T-score:-3.4] [Z-Score:-1.2] [BMD Previous:0.580] [BMD % Change:-0.9] *Indicates significant change from prior examination based on 95% confidence level. World Health Organization criteria for BMD interpretation classify patients as Normal (T-score at or above -1.0), Osteopenic (T-score between -1.0 and -2.5) or Osteoporotic (T-score at or below -2.5). LIMITATIONS AND MODIFICATION: The left hip was not evaluated secondary to prior fracture. Significant apex right curvature of the lumbar spine is again noted. IMPRESSION: 1. Osteoporosis. 2. No significant change in bone mineral density since prior examination. 3. See below National Osteoporosis Foundation guidelines on when to potentially initiate pharmacologic therapy. Based on the National Osteoporosis Foundation Guidelines, pharmacologic treatment should be initiated in any of the following, unless clinical conditions suggest otherwise: * Any patient with prior fragility fracture of the hip or vertebrae. A spine fracture indicates 5X risk for subsequent spine fracture and 2X risk for subsequent hip fracture. * Osteoporosis (T-score <-2.5). * Postmenopausal women and men age 50 and older with low bone mass/osteopenia (T-score between -1.0 and -2.5) by DXA and 10-year major osteoporotic fracture greater than 20% or a 10-year probability of hip fracture greater than 3%. These fracture risks are supplied above in the FRAX score, if applicable. * Clinician judgement and/or patient preferences may indicate treatment for people with 10-year fracture probabilities above or below these levels. Dictated by: Dictated on workstation # [id number]
== END ==
LOC: RAD 11:03
PROVIDERS: ATTEND Internal Medicine Rheumatology
DX: M81.0 Age-related osteoporosis without current pathological fracture (principal); Z78.0 Asymptomatic menopausal state
CPT/HCPCS: 77080

== ENCOUNTER → 2022-08-09 | Outpatient (RCR) | payer MEDICARE | END | disposition home or self-care (01) | PROVIDERS: ATTEND Internal Medicine | DX: M17.11 Unilateral primary osteoarthritis, right knee (principal); M25.552 Pain in left hip; I10 Essential (primary) hypertension ==

== ENCOUNTER → 2022-09-06 | Outpatient (RCR) | payer MEDICARE | END | disposition home or self-care (01) | PROVIDERS: ATTEND Internal Medicine | DX: M17.11 Unilateral primary osteoarthritis, right knee (principal); M25.552 Pain in left hip; I10 Essential (primary) hypertension ==

== ENCOUNTER → 2022-10-07 | Outpatient (RCR) | payer MEDICARE | END | disposition home or self-care (01) | PROVIDERS: ATTEND Internal Medicine | DX: M17.11 Unilateral primary osteoarthritis, right knee (principal); M25.552 Pain in left hip; I10 Essential (primary) hypertension ==

== ENCOUNTER 2022-11-04 12:58 | Outpatient (RCR) | payer MEDICARE | END 2022-11-06 | disposition home or self-care (01) | PROVIDERS: ATTEND Internal Medicine | DX: M17.11 Unilateral primary osteoarthritis, right knee (principal); M25.552 Pain in left hip; M54.50 Low back pain, unspecified; I10 Essential (primary) hypertension ==

== ENCOUNTER 2022-12-06 13:01 | Outpatient (RCR) | payer MEDICARE | END 2022-12-07 | disposition home or self-care (01) | PROVIDERS: ATTEND Internal Medicine | DX: M17.11 Unilateral primary osteoarthritis, right knee (principal); M25.552 Pain in left hip; M54.50 Low back pain, unspecified; I10 Essential (primary) hypertension ==

== ENCOUNTER 2023-01-03 12:59 | Outpatient (RCR) | payer MEDICARE | END 2023-01-06 | disposition home or self-care (01) | PROVIDERS: ATTEND Internal Medicine | DX: M17.11 Unilateral primary osteoarthritis, right knee (principal); M25.552 Pain in left hip; M54.50 Low back pain, unspecified ==

== ENCOUNTER 2023-02-03 13:13 | Outpatient (RCR) | payer MEDICARE | END 2023-02-06 | disposition home or self-care (01) | PROVIDERS: ATTEND Internal Medicine | DX: M17.11 Unilateral primary osteoarthritis, right knee (principal); M25.552 Pain in left hip; M54.50 Low back pain, unspecified; I10 Essential (primary) hypertension ==

== ENCOUNTER 2023-03-07 13:19 | Outpatient (RCR) | payer MEDICARE | END 2023-03-09 | disposition home or self-care (01) | PROVIDERS: ATTEND Internal Medicine | DX: M17.11 Unilateral primary osteoarthritis, right knee (principal); M25.552 Pain in left hip; M54.50 Low back pain, unspecified ==

== ENCOUNTER 2023-05-04 13:00 | Outpatient (RCR) | payer MEDICARE | END 2023-05-09 | disposition home or self-care (01) | PROVIDERS: ATTEND Internal Medicine | DX: M25.552 Pain in left hip (principal); M54.50 Low back pain, unspecified; M17.11 Unilateral primary osteoarthritis, right knee; I10 Essential (primary) hypertension ==

== ENCOUNTER → 2023-06-08 | Outpatient (RCR) | payer MEDICARE | END | disposition home or self-care (01) | PROVIDERS: ATTEND Internal Medicine | DX: M25.552 Pain in left hip (principal); M17.11 Unilateral primary osteoarthritis, right knee; I10 Essential (primary) hypertension ==